=== PATIENT | male | born 1960 | race Caucasian/White ===

== ENCOUNTER 2017-08-22 14:57 | Emergency (ER) | payer SELFPAY ==
[2017-08-22 15:55] LABS: Urine Bacteria <20 /HPF (NONE SEEN); Urine Culture Reflex Order REFLEXED; Urine RBC >50 /HPF (NONE SEEN)
[2017-08-22] MEDS ORDERED: NA CHLORIDE 0.9% 1,000 ML ONE (16:01)
[2017-08-22 16:39] LABS: Potassium 3.7 mEq/L (3.6-5.0)
[2017-08-22 16:55] LABS: Urine Blood 3+ (NEG); Urine Glucose NEGATIVE (NEG); Urine Protein 1+ (NEG); Urine Specific Gravity >1.030 (1.005-1.030)
--- NOTE | 2017-08-22 17:03 | RAD REPORT ---
EXAM DESCRIPTION: CT - Stone Protocol - 08/22/2017 4:54 pm CLINICAL HISTORY: Hematuria COMPARISON: None. TECHNIQUE: Axial 5 mm thick images were obtained without oral or IV contrast. The [id number] span s the entirety of the system partially obscuring uppermost abdomen and lung bases. All CT scans are performed using dose optimization technique as appropriate and may include automated exposure control or mA/KV adjustment according to patient size. FINDINGS: No hydronephrosis is present and no obstructing ureteral calculi. No suspicious renal mass es. Isodense masses and pyelonephritis are not excluded on a stone protocol CT scan. Prostate gland i s quite enlarged. There is a lobulated superior margin at the interface between the prostate and blad willard base. On this examination it cannot be determined if this is an invasive bladder process or a neisha dder origin mass. This may need direct visualization. No stranding or edema in the fat adjacent to th e prostate. Imaged portions of the liver, spleen and pancreas show no suspicious findings on non-contrast imaging . No gallbladder or biliary tree abnormality identified. No significant adrenal finding. No suspicious bowel findings. No mass or bulky lymphadenopathy. Fat filled right inguinal hernia is present. No free air, free flui d or inflammatory stranding. No significant bony abnormality. IMPRESSION: Enlarged lobulated prostate gland. There is a mass at the bladder base that could be neisha dder in origin, part of prostatic hypertrophy or an invasive prostatic mass. This will likely need di rect visualization. No hydronephrosis or obstructing calculi. No acute finding. Isodense masses and pyelonephritis are not excluded on stone protocol technique.
--- NOTE | 2017-08-22 17:11 | EDPHYS ---
Physician Documentation [facility] Name: Roman Gooden Age: 57 yrs Sex: Male : 1960 Arrival Date: 08/22/2017 Time: 15:02 Bed 10 Private MD: ED Physician Clive Santa HPI: 08/22 15:53 This 57 yrs old Male presents to ER via Ambulatory with complaints of Finger kb Injury, Urinary Problem. 15:53 The patient or guardian reports pain, swelling, possible FB. The complaints affect the kb palmar aspect of middle phalanx of left middle finger. Context: The problem was sustained at home. Onset: The symptoms/episode began/occurred yesterday. Modifying factors: The symptoms are alleviated by nothing, the symptoms are aggravated by nothing. Associated signs and symptoms: The patient has no apparent associated signs or symptoms. Severity of symptoms: At their worst the symptoms were mild, moderate, in the emergency department the symptoms are unchanged. The patient has not experienced similar symptoms in the past. The patient has not recently seen a physician. Pt reports he got a piece of wood stuck in his finger yesterday. Tried to get it out today but couldn't so he came in. Reports blood in urine when he used the restroom in the lobby. . Historical: - Allergies: 15:20 No Known Allergies; ae1 - Home Meds: 15:20 Tylenol oral oral [Active]; ae1 - PMHx: 15:20 UTI; Hypertension; TIA; ae1 - PSHx: 15:20 ankle surgery; eye surgery; Tonsillectomy; ae1 - Immunization history:: Last tetanus immunization: up to date Flu vaccine is not up to date. - Social history:: Smoking status: Patient/guardian denies using tobacco. ROS: 15:53 Constitutional: Negative for fever, chills, and weight loss, Cardiovascular: Negative kb for chest pain, palpitations, and edema, Respiratory: Negative for shortness of breath, cough, wheezing, and pleuritic chest pain, Abdomen/GI: Negative for abdominal pain, nausea, vomiting, diarrhea, and constipation, MS/Extremity: Negative for injury and deformity, Neuro: Negative for headache, weakness, numbness, tingling, and seizure. 15:53 : Positive for urinary symptoms, small amounts, hematuria, burning with urination. 15:53 Skin: Positive for of the palmar aspect of middle phalanx of left middle finger, inflammation, puncture wound. Exam: 15:53 Constitutional: This is a well developed, well nourished patient who is awake, alert, kb and in no acute distress. Head/Face: Normocephalic, atraumatic. Chest/axilla: Normal chest wall appearance and motion. Nontender with no deformity. No lesions are appreciated. Cardiovascular: Regular rate and rhythm with a normal S1 and S2. No gallops, murmurs, or rubs. Normal PMI, no JVD. No pulse deficits. Respiratory: Lungs have equal breath sounds bilaterally, clear to auscultation and percussion. No rales, rhonchi or wheezes noted. No increased work of breathing, no retractions or nasal flaring. Abdomen/GI: Soft, non-tender, with normal bowel sounds. No distension or tympany. No guarding or rebound. No evidence of tenderness throughout. Back: No spinal tenderness. No costovertebral tenderness. Full range of motion. MS/ Extremity: Pulses equal, no cyanosis. Neurovascular intact. Full, normal range of motion. Neuro: Awake and alert, GCS 15, oriented to person, place, time, and situation. Cranial nerves II-XII grossly intact. Motor strength 5/5 in all extremities. Sensory grossly intact. Cerebellar exam normal. Normal gait. 15:53 Skin: injury, puncture(s), that are superficial, of the palmar aspect of middle phalanx of left middle finger. Vital Signs: 15:12 BP 171 / 113; Pulse 80; Resp 19; Temp 97.8(TE); Pulse Ox 97% on R/A; Weight 97.52 kg ae1 (R); Height 5 ft. 10 in. (177.80 cm); Pain 3/10; 16:22 BP 164 / 97; Pulse 74; Resp 18; Pulse Ox 98% on R/A; ph 17:35 BP 159 / 88; Pulse 76; Resp 18; Temp 97.5; Pulse Ox 99% on R/A; ph 15:12 Body Mass Index 30.85 (97.52 kg, 177.80 cm) ae1 MDM: 15:23 Patient medically screened. kb 15:53 Data reviewed: vital signs, nurses notes. Data interpreted: Pulse oximetry: on room air kb is 97 %. Interpretation: normal. 17:08 Counseling: I had a detailed discussion with the patient and/or guardian regarding: the kb historical points, exam findings, and any diagnostic results supporting the discharge/admit diagnosis, lab results, radiology results, the need for outpatient follow up, a family practitioner, a urologist, to return to the emergency department if symptoms worsen or persist or if there are any questions or concerns that arise at home. ED course: Pt educated on CT findings and importance of urologist follow up. Verbal understanding received. . 08/22 15:26 Order name: Urine Microscopic Only; Complete Time: 16:00 kb 08/22 15:40 Order name: Hand Left 3 View XRAY kb 08/22 15:47 Order name: Urine Dipstick--Ancillary (enter results); Complete Time: 16:57 bd 08/22 15:57 Order name: Urine Culture EDWY 08/22 16:23 Order name: Basic Metabolic Panel; Complete Time: 16:51 EDMS 08/22 15:26 Order name: Urine Dipstick-Ancillary (obtain specimen); Complete Time: 16:24 kb 08/22 15:40 Order name: IV Start; Complete Time: 16:22 kb 08/22 15:40 Order name: CT Stone Protocol; Complete Time: 17:04 kb Administered Medications: 16:22 Drug: NS 0.9% 1000 ml Route: IV; Rate: 1000 ml; Site: right antecubital; ph 17:30 Follow up: Response: No adverse reaction; IV Status: Completed infusion ph 17:21 Drug: Tetanus-Diphtheria Toxoid Adult 0.5 ml {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 Exp: ph 12/08/2019. Lot #: [id number]. } Route: IM; Site: right deltoid; 17:35 Follow up: Response: No adverse reaction ph 17:22 Drug: KeFLEX 500 mg Route: PO; ph 17:35 Follow up: Response: No adverse reaction ph Disposition: 21:38 Co-signature as Attending Physician, Clive Santa MD. rn Disposition: 08/22/17 17:10 Discharged to Home. Impression: Puncture wound without foreign body of left hand, Hematuria, Enlarged prostate. - Condition is Stable. - Discharge Instructions: Hematuria, Adult, Puncture Wound, Ccdi-[id number]. - Prescriptions for Keflex 500 mg Oral Capsule - take 1 capsule by ORAL route every 8 hours for 7 days; 21 capsule. - Medication Reconciliation Form, Thank You Letter, Antibiotic Education, Prescription Opioid Use form. - Follow up: Emergency Department; When: As needed; Reason: Worsening of condition. Follow up: Private Physician; When: 2 - 3 days; Reason: Recheck today's complaints, Continuance of care, Re-evaluation by your physician. Follow up: Nancy Sanchez MD; When: 1 - 2 days; Reason: Recheck today's complaints. Signatures: Dispatcher [employer] EDSamra Branch, ELECTRONICS INSPECTOR-C ELECTRONICS INSPECTOR-Ckb Clive Santa MD MD rn Dora Mon RN RN Hector Mendenhall RN RN ae1
--- NOTE | 2017-08-22 17:11 | ER ---
Nurse's Notes [facility] Name: Roman Gooden Age: 57 yrs Sex: Male : 1960 Arrival Date: 08/22/2017 Time: 15:02 Bed 10 Private MD: Diagnosis: Puncture wound without foreign body of left hand;Hematuria;Enlarged prostate Presentation: 08/22 15:15 Presenting complaint: Patient states: patient states a piece of wood pierced his left ae1 middle finger. He also reports blood in his urine that started right now. Transition of care: patient was not received from another setting of care. Onset of symptoms was August 22, 2017. 15:15 Method Of Arrival: Ambulatory ae1 15:15 Acuity: DAVID 3 ae1 16:21 Initial Sepsis Screen: Does the patient meet any 2 criteria? No. Patient's initial ph sepsis screen is negative. Does the patient have a suspected source of infection? No. Patient's initial sepsis screen is negative. Care prior to arrival: None. Triage Assessment: 15:17 General: Appears in no apparent distress. comfortable, Behavior is calm, cooperative. ae1 Pain: Complains of pain in palmar aspect of distal phalanx of left middle finger, palmar aspect of middle phalanx of left middle finger and palmar aspect of proximal phalanx of left middle finger Pain currently is 3 out of 10 on a pain scale. Musculoskeletal: Swelling present in palmar aspect of distal phalanx of left middle finger, palmar aspect of middle phalanx of left middle finger and palmar aspect of proximal phalanx of left middle finger. Injury Description: Puncture. Historical: - Allergies: 15:20 No Known Allergies; ae1 - Home Meds: 15:20 Tylenol oral oral [Active]; ae1 - PMHx: 15:20 UTI; Hypertension; TIA; ae1 - PSHx: 15:20 ankle surgery; eye surgery; Tonsillectomy; ae1 - Immunization history:: Last tetanus immunization: up to date Flu vaccine is not up to date. - Social history:: Smoking status: Patient/guardian denies using tobacco. Screenin:21 Abuse screen: Denies threats or abuse. Denies injuries from another. Nutritional ph screening: No deficits noted. Tuberculosis screening: No symptoms or risk factors identified. Fall Risk None identified. Assessment: 16:17 General: Appears in no apparent distress. comfortable, Behavior is calm, cooperative, ph appropriate for age, Denies fever. Pain: Complains of pain in palmar aspect of middle phalanx of left middle finger and LLQ. Neuro: Level of Consciousness is awake, alert, obeys commands, Oriented to person, place, time, situation. Cardiovascular: Capillary refill < 3 seconds Patient's skin is warm and dry. Respiratory: Airway is patent Respiratory effort is even, unlabored, Respiratory pattern is regular, symmetrical. GI: Reports lower abdominal pain, Patient currently denies nausea, vomiting. : Reports blood in urine. Derm: Skin is healthy with good turgor, Skin is pink, warm \T\ dry. Musculoskeletal: Circulation, motion, and sensation intact. Range of motion: intact in all extremities. Injury Description: Foreign body is located palmar aspect of middle phalanx of left middle finger is a splinter. was sustained 12-24 hours ago. 17:35 Reassessment: Patient appears in no apparent distress at this time. Patient and/or ph family updated on plan of care and expected duration. Pain level reassessed. Patient is alert, oriented x 3, equal unlabored respirations, skin warm/dry/pink. Pt discharged home with SO. Vital Signs: 15:12 BP 171 / 113; Pulse 80; Resp 19; Temp 97.8(TE); Pulse Ox 97% on R/A; Weight 97.52 kg ae1 (R); Height 5 ft. 10 in. (177.80 cm); Pain 3/10; 16:22 BP 164 / 97; Pulse 74; Resp 18; Pulse Ox 98% on R/A; ph 17:35 BP 159 / 88; Pulse 76; Resp 18; Temp 97.5; Pulse Ox 99% on R/A; ph 15:12 Body Mass Index 30.85 (97.52 kg, 177.80 cm) ae1 ED Course: 15:02 Patient arrived in ED. mr 15:16 Triage completed. ae1 15:21 Arm band placed on right wrist. ae1 15:23 Sam[facility] Dougherty [facility]C [facility]. kb 15:23 Clive Santa MD is Attending Physician. kb 15:51 Dora Mon, JAMES is Primary Nurse. ph 16:21 Patient has correct armband on for positive identification. Call light in reach. Side ph rails up X 1. Pulse ox on. NIBP on. 16:21 No provider procedures requiring assistance completed. Inserted saline lock: 20 gauge ph in right antecubital area, using aseptic technique. 16:54 CT Stone Protocol In Process Unspecified. EDMS 16:57 X-ray completed. Patient tolerated procedure well. Patient moved back from radiology. kc2 16:58 Hand Left 3 View XRAY In Process Unspecified. EDMS 17:11 Nancy Sanchez MD is Referral Physician. kb 17:35 IV discontinued, intact, bleeding controlled, No redness/swelling at site. Pressure ph dressing applied. 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 Exp: ph 12/08/2019. Lot #: [id number]. } Route: IM; Site: right deltoid; 17:35 Follow up: Response: No adverse reaction ph 17:22 Drug: KeFLEX 500 mg Route: PO; ph 17:35 Follow up: Response: No adverse reaction ph Outcome: 17:10 Discharge ordered by MD. kb 17:39 Patient left the ED. ph 17:39 Discharged to home ambulatory, with significant other. ph 17:39 Condition: good 17:39 Discharge instructions given to patient, significant other, Instructed on discharge instructions, follow up and referral plans. medication usage, Demonstrated understanding of instructions, follow-up care, medications, Prescriptions given X 1. Signatures: Dispatcher [employer] EDMS Samra Dougherty, DIGITAL FORENSIC EXAMINER-C DIGITAL FORENSIC EXAMINER-Venita Hennessy mr Dora Mon, RN RN Gricelda Alcantara kc2 Hector Gant, JAMES RN ae1
[2017-08-22] MEDS ORDERED: TETANUS & DIPHTHERIA TOX,ADULT 0.5 ML VIAL ONE (17:15)
[2017-08-22] MEDS ORDERED: CEPHALEXIN 250 MG CAP ONE (17:15)
--- NOTE | 2017-08-22 17:51 | RAD REPORT ---
EXAM DESCRIPTION: RAD - Hand Left 3 View - 08/22/2017 5:01 pm CLINICAL HISTORY: Soft tissue wound third digit COMPARISON: None. FINDINGS: No fracture or acute bone finding identified. IP joint degenerative changes are present. L eft third digit soft tissues are edematous. No foreign body is identifiable. IMPRESSION: Soft tissue swelling without foreign body. No acute bone finding.
== END 2017-08-22 17:39 | disposition home or self-care (01) ==
LOC: ER 14:57
DX: N40.0 Benign prostatic hyperplasia without lower urinary tract symptoms (principal); S61.432A Puncture wound without foreign body of left hand, initial encounter; X58.XXXA Exposure to other specified factors, initial encounter; Y93.9 Activity, unspecified; Y92.009 Unspecified place in unspecified non-institutional (private) residence as the place of occurrence of the external cause; I10 Essential (primary) hypertension; Z23 Encounter for immunization
CPT/HCPCS: 36415; 74176; 76377; 80048; 81003; 81015; 87086; 87088; 90714; 96360; 99284; J7030

== ENCOUNTER 2018-01-09 15:09 | Inpatient (IN) | payer OTHER, SELFPAY ==
[2018-01-09] MEDS ORDERED: ASPIRIN 81 MG CHEWABLE TABLET ONE (16:20)
[2018-01-09] MEDS ORDERED: MORPHINE 4 MG/ML SYR ONE (16:21)
[2018-01-09] MEDS ORDERED: NA CHLORIDE 0.9% 1,000 ML ONE (16:21)
[2018-01-09] MEDS ORDERED: ONDANSETRON 4 MG/2 ML VIAL ONE (16:21)
[2018-01-09] MEDS ORDERED: FAMOTIDINE 20 MG/2 ML VIAL IV ONE (16:21)
--- NOTE | 2018-01-09 16:24 | RAD REPORT ---
EXAM DESCRIPTION: RAD - Chest Single View - 01/09/2018 4:18 pm CLINICAL HISTORY: CHEST PAIN Chest pain. COMPARISON: No comparisons FINDINGS: Portable technique limits examination quality. The lungs are grossly clear. The heart is normal in size. No displaced fractures. IMPRESSION: No acute intrathoracic process suspected.
[2018-01-09 16:41] LABS: Absolute Lymphocytes (CBC) 1.2 K/uL (0.7-4.9); Absolute Monocytes 0.5 K/uL (0.1-1.3); Absolute Neutrophil 3.1 K/uL (1.8-8.0); Basophils % 0.3 % (0-1.3); Eosinophils % 0.9 % (0-4.4); Hematocrit 44.8 % (39.6-49.0); Lymphocytes % 25.5 % (15.3-44.8); MCH 29.5 pg (27.0-35.0); MCV 87.3 fL (80-100); MPV 9.3 fL (7.6-11.3); Monocytes % 10.4 % (3.3-12.3); RBC Red Blood Cell Count 5.13 M/uL (4.33-5.43)
[2018-01-09 16:53] LABS: Protime INR 0.99
--- NOTE | 2018-01-09 17:18 | ER ---
Nurse's Notes [facility] Name: Roman Gooden Age: 57 yrs Sex: Male : 1960 Arrival Date: 01/09/2018 Time: 15:15 Bed 24 Private MD: None, None Diagnosis: Dyspnea;Other chest pain;Abdominal tenderness-lower Presentation: 01/09 15:29 Presenting complaint: Patient states: " I am feeling SOB and I feel like I'm having a ph migraine. I am also having chest pain that goes down my L side and my stomach is hurting." Reports intermittent L sided chest pain that radiates to L side and flank area, headache in entire head, (reports hx of headaches), and lower abdominal pain, denies N/V/D. Transition of care: patient was not received from another setting of care. Onset of symptoms was January 09, 2018. Risk Assessment: Do you want to hurt yourself or someone else? Patient reports no desire to harm self or others. Care prior to arrival: None. 15:29 Method Of Arrival: Ambulatory ph 15:29 Acuity: DAVID 3 ph 19:40 Initial Sepsis Screen: Does the patient meet any 2 criteria? No. Patient's initial rv sepsis screen is negative. Does the patient have a suspected source of infection? No. Patient's initial sepsis screen is negative. Triage Assessment: 19:39 General: Appears in no apparent distress. comfortable. General: Behavior is calm, rv cooperative. Respiratory: Onset: The symptoms/episode began/occurred suddenly, the patient has moderate shortness of breath. Respiratory: Airway is patent Breath sounds are clear bilaterally. Historical: - Allergies: 15:34 No Known Allergies; ph - Home Meds: 19:39 Tylenol Oral [Active]; rv - PMHx: 15:34 Hypertension; TIA; UTI; ph - PSHx: 15:34 ankle surgery; Tonsillectomy; eye surgery; ph - Immunization history:: Adult Immunizations unknown. - Social history:: Smoking status: Patient/guardian denies using tobacco. - Ebola Screening: : No symptoms or risks identified at this time. Screenin:07 Abuse screen: Denies threats or abuse. Denies injuries from another. Nutritional aj1 screening: No deficits noted. Tuberculosis screening: No symptoms or risk factors identified. 19:40 Fall Risk None identified. rv Assessment: 16:05 General: Appears in no apparent distress. uncomfortable, Behavior is. Pain: Complains aj1 of pain in forehead, right caodaism, left caodaism, left parietal area, right parietal area, anterior aspect of left upper chest, right lower quadrant and left lower quadrant Pain does not radiate. Pain currently is 8 out of 10 on a pain scale. Is continuous. Neuro: Level of Consciousness is awake, alert, obeys commands, Oriented to person, place, time, situation, Lens Polisher Hand are equal bilaterally Moves all extremities. Full function Speech is normal, Facial symmetry appears normal, Reports headache. Cardiovascular: Reports chest pain, shortness of breath, Heart tones S1 S2 present Patient's skin is warm and dry. Rhythm is sinus rhythm. Respiratory: Reports shortness of breath Airway is patent Respiratory effort is even, unlabored, Respiratory pattern is regular, symmetrical, Breath sounds are clear bilaterally. GI: Abdomen is non-distended, Bowel sounds present X 4 quads. Abd is soft X 4 quads Abdomen is tender to palpation in right lower quadrant and left lower quadrant. : No signs and/or symptoms were reported regarding the genitourinary system. EENT: No signs and/or symptoms were reported regarding the EENT system. Derm: No signs and/or symptoms reported regarding the dermatologic system. Skin is pink, warm \\T\\ dry. normal. Musculoskeletal: Circulation, motion, and sensation intact. 17:10 Reassessment: Patient appears in no apparent distress at this time. No changes from aj1 previously documented assessment. Patient and/or family updated on plan of care and expected duration. Pain level reassessed. Patient is alert, oriented x 3, equal unlabored respirations, skin warm/dry/pink. 18:30 Reassessment: Patient appears in no apparent distress at this time. Patient and/or aj1 family updated on plan of care and expected duration. Pain level reassessed. General: Appears uncomfortable, Behavior is calm, cooperative. Pain: Complains of pain in anterior aspect of left upper chest. Neuro: Level of Consciousness is awake, alert, obeys commands, Speech is normal, Facial symmetry appears normal. Cardiovascular: Patient's skin is warm and dry. Cardiovascular: Rhythm is sinus rhythm. Respiratory: Airway is patent Respiratory effort is even, unlabored, Respiratory pattern is regular, symmetrical. Derm: Skin is pink, warm \\T\\ dry. normal. Musculoskeletal: Circulation, motion, and sensation intact. Vital Signs: 15:33 BP 162 / 94; Pulse 78; Resp 20; Temp 98.4; Pulse Ox 97% on R/A; Weight 95.25 kg; Height ph 5 ft. 10 in. (177.80 cm); Pain 8/10; 16:05 BP 153 / 98; Pulse 71; Resp 18; Pulse Ox 98% on R/A; aj1 17:15 BP 161 / 98; Pulse 63; Resp 18; Pulse Ox 97% on R/A; aj1 19:01 BP 162 / 97; Pulse 79; Resp 18; Pulse Ox 99% ; aj1 15:33 Body Mass Index 30.13 (95.25 kg, 177.80 cm) ph ED Course: 15:15 Patient arrived in ED. mr 15:15 None, None is Private Physician. mr 15:32 Triage completed. ph 15:34 Arm band placed on. ph 15:49 Ashlie Hall, RN is Primary Nurse. aj1 15:49 Nabeel Nails MD is Attending Physician. ross 15:57 EKG done, by photographic technician. reviewed by Nabeel Nails MD. sm3 16:07 Patient has correct armband on for positive identification. substance abuse prevention coordinator on. Pulse aj1 ox on. NIBP on. 16:07 No provider procedures requiring assistance completed. aj1 16:09 Lights dimmed. Warm blanket given. Pillow given. jp3 16:15 Initial lab(s) drawn, by wi, sent to lab. Inserted saline lock: 20 gauge in right jp3 antecubital area, using aseptic technique. Blood collected. 16:16 X-ray completed. Portable x-ray completed in exam room. Patient tolerated procedure az well. 16:18 XRAY Chest (1 view) In Process Unspecified. EDMS 16:26 Lipase Sent. jp3 16:26 Basic Metabolic Panel Sent. jp3 16:26 CBC with Diff Sent. jp3 16:26 Ckmb Sent. jp3 16:26 CPK Sent. jp3 16:26 LFT's Sent. jp3 16:26 Magnesium Sent. jp3 16:26 NT PRO-BNP Sent. jp3 16:26 PT-INR Sent. jp3 16:26 Ptt, Activated Sent. jp3 16:26 Troponin (emerg Dept Use Only) Sent. jp3 16:54 Radiology exam delayed due to lab results not completed at this time. (BUN/Creatinine). 2 17:17 Bahman Jerry DO is Hospitalizing Provider. ross 18:15 Urine collected: clean catch specimen, clear, brittany colored, Amount Voided: 120mL. jp3 18:51 Urine Culture Sent. jp3 19:39 Patient admitted, IV remains in place. intact. rv Administered Medications: 16:27 Drug: morphine 2 mg Route: IVP; Site: right antecubital; aj1 17:42 Follow up: Response: No adverse reaction aj1 16:27 Drug: Zofran 4 mg Route: IVP; Site: right antecubital; aj1 17:43 Follow up: Response: No adverse reaction aj1 16:28 Drug: NS 0.9% 1000 ml Route: IV; Rate: 125 ml/hr; Site: right antecubital; aj1 19:41 Follow up: IV Status: Completed infusion rv 16:28 Drug: Pepcid 20 mg Route: IVP; Site: right antecubital; aj1 17:42 Follow up: Response: No adverse reaction aj1 16:28 Drug: Aspirin 162 mg Route: PO; aj1 17:42 Follow up: Response: No adverse reaction aj1 18:05 Drug: Cipro 400 mg Volume: 200 ml; Route: IVPB; Infused Over: 60 mins; Site: right aj1 antecubital; 19:02 Follow up: IV Status: Completed infusion; IV Intake: 200ml aj1 18:05 Drug: Flagyl 500 mg Volume: 100 ml; Route: IVPB; Rate: 200 ml/hr; Infused Over: 30 aj1 mins; Site: right antecubital; 19:02 Follow up: IV Status: Completed infusion; IV Intake: 100ml aj1 18:05 Drug: Lopressor (metoprolol TARTRATE) 50 mg Route: PO; aj1 19:01 Follow up: Response: No adverse reaction aj1 18:06 Drug: morphine 2 mg Route: IVP; Site: right antecubital; aj1 19:02 Follow up: Response: No adverse reaction aj1 19:33 Drug: Rocephin - (cefTRIAXone) 1 grams Route: IVPB; Infused Over: 30 mins; Site: right rv antecubital; 19:36 Follow up: IV Status: Completed infusion rv 19:37 Drug: Lovenox 1 mg/kg Route: Sub-Q; Site: abdomen; rv 19:37 Follow up: Response: No adverse reaction rv Intake: 19:02 IV: 100ml; Total: 100ml. aj1 19:02 IV: 200ml; Total: 300ml. aj1 Outcome: 17:18 Decision to Hospitalize by Provider. [facility] 19:38 Admitted to Tele accompanied by tech, via wheelchair, room 412, with chart, Report rv called to wilda bell rn 19:38 Condition: good 19:38 Instructed on the need for admit. 19:47 Patient left the ED. rv Signatures: Dispatcher [employer] EDMS Ashlie Hall RN RN Nabeel Mireles MD MD cha Rivera, Maria mr Hall, Patricia, RN RN Tiana Vega 2 Madhavi Castillo 3 Isaac Moran RN RN rv King Ochoa 3 Louise Waite
--- NOTE | 2018-01-09 17:18 | EDPHYS ---
Physician Documentation [facility] Name: Roman Gooden Age: 57 yrs Sex: Male : 1960 Arrival Date: 01/09/2018 Time: 15:15 Bed 24 Private MD: None, None ED Physician Nabeel Nails HPI: 01/09 16:49 This 57 yrs old Male presents to ER via Ambulatory with complaints of ross Shortness Of Breath, Abdominal Pain. 16:49 The patient has shortness of breath at rest, with light activity. Onset: The ross symptoms/episode began/occurred 2 day(s) ago. Duration: The symptoms are continuous, and are steadily getting worse. The patient's shortness of breath has no apparent modifying factors. Associated signs and symptoms: Pertinent positives: chest pain, non-productive cough, dizziness, nausea. Severity of symptoms: At their worst the symptoms were mild moderate in the emergency department the symptoms are unchanged. The patient has not experienced similar symptoms in the past. Historical: - Allergies: 15:34 No Known Allergies; ph - Home Meds: 19:39 Tylenol Oral [Active]; rv - PMHx: 15:34 Hypertension; TIA; UTI; ph - PSHx: 15:34 ankle surgery; Tonsillectomy; eye surgery; ph - Immunization history:: Adult Immunizations unknown. - Social history:: Smoking status: Patient/guardian denies using tobacco. - Ebola Screening: : No symptoms or risks identified at this time. ROS: 16:50 Constitutional: Negative for fever, chills, and weight loss, Eyes: Negative for injury, ross pain, redness, and discharge, ENT: Negative for injury, pain, and discharge, Neck: Negative for injury, pain, and swelling, Back: Negative for injury and pain, : Negative for injury, bleeding, discharge, and swelling, MS/Extremity: Negative for injury and deformity, Skin: Negative for injury, rash, and discoloration, Neuro: Negative for headache, weakness, numbness, tingling, and seizure, Psych: Negative for depression, anxiety, suicide ideation, homicidal ideation, and hallucinations, Allergy/Immunology: Negative for hives, rash, and allergies, Endocrine: Negative for neck swelling, polydipsia, polyuria, polyphagia, and marked weight changes, Hematologic/Lymphatic: Negative for swollen nodes, abnormal bleeding, and unusual bruising. 16:50 Cardiovascular: Positive for chest pain. 16:50 Respiratory: Positive for cough, shortness of breath. 16:50 Abdomen/GI: Positive for abdominal pain, of the right lower quadrant and left lower quadrant. Exam: 16:50 Constitutional: This is a well developed, well nourished patient who is awake, alert, ross and in no acute distress. Head/Face: Normocephalic, atraumatic. Eyes: Pupils equal round and reactive to light, extra-ocular motions intact. Lids and lashes normal. Conjunctiva and sclera are non-icteric and not injected. Cornea within normal limits. Periorbital areas with no swelling, redness, or edema. ENT: Nares patent. No nasal discharge, no septal abnormalities noted. Tympanic membranes are normal and external auditory canals are clear. Oropharynx with no redness, swelling, or masses, exudates, or evidence of obstruction, uvula midline. Mucous membranes moist. Neck: Trachea midline, no thyromegaly or masses palpated, and no cervical lymphadenopathy. Supple, full range of motion without nuchal rigidity, or vertebral point tenderness. No Meningismus. Chest/axilla: Normal chest wall appearance and motion. Nontender with no deformity. No lesions are appreciated. Cardiovascular: Regular rate and rhythm with a normal S1 and S2. No gallops, murmurs, or rubs. Normal PMI, no JVD. No pulse deficits. Respiratory: Lungs have equal breath sounds bilaterally, clear to auscultation and percussion. No rales, rhonchi or wheezes noted. No increased work of breathing, no retractions or nasal flaring. Back: No spinal tenderness. No costovertebral tenderness. Full range of motion. Male : Normal genitalia with no discharge or lesions. Skin: Warm, dry with normal turgor. Normal color with no rashes, no lesions, and no evidence of cellulitis. MS/ Extremity: Pulses equal, no cyanosis. Neurovascular intact. Full, normal range of motion. Neuro: Awake and alert, GCS 15, oriented to person, place, time, and situation. Cranial nerves II-XII grossly intact. Motor strength 5/5 in all extremities. Sensory grossly intact. Cerebellar exam normal. Normal gait. Psych: Awake, alert, with orientation to person, place and time. Behavior, mood, and affect are within normal limits. 16:50 Abdomen/GI: Inspection: abdomen appears normal, Bowel sounds: normal, Palpation: mild abdominal tenderness, moderate abdominal tenderness, in the right lower quadrant and left lower quadrant, Liver: no appreciated palpable abnormalities, Hernia: not appreciated. Vital Signs: 15:33 BP 162 / 94; Pulse 78; Resp 20; Temp 98.4; Pulse Ox 97% on R/A; Weight 95.25 kg; Height ph 5 ft. 10 in. (177.80 cm); Pain 8/10; 16:05 BP 153 / 98; Pulse 71; Resp 18; Pulse Ox 98% on R/A; aj1 17:15 BP 161 / 98; Pulse 63; Resp 18; Pulse Ox 97% on R/A; aj1 19:01 BP 162 / 97; Pulse 79; Resp 18; Pulse Ox 99% ; aj1 15:33 Body Mass Index 30.13 (95.25 kg, 177.80 cm) ph MDM: 15:49 Patient medically screened. [facility] 16:50 Data reviewed: vital signs, nurses notes, lab test result(s), EKG, radiologic studies, [facility] CT scan, plain films. 01/09 15:53 Order name: Basic Metabolic Panel; Complete Time: 17:57 [facility] 01/09 15:53 Order name: CBC with Diff; Complete Time: 17:11 [facility] 01/09 15:53 Order name: Ckmb; Complete Time: 17:57 [facility] 01/09 15:53 Order name: CPK; Complete Time: 17:57 [facility] 01/09 15:53 Order name: LFT's; Complete Time: 17:57 [facility] 01/09 15:53 Order name: Magnesium; Complete Time: 17:57 [facility] 01/09 15:53 Order name: NT PRO-BNP; Complete Time: 17:57 [facility] 01/09 15:53 Order name: PT-INR; Complete Time: 17:11 [facility] 01/09 15:53 Order name: Ptt, Activated; Complete Time: 17:11 [facility] 01/09 15:53 Order name: Troponin (emerg Dept Use Only); Complete Time: 17:57 [facility] 01/09 15:53 Order name: Lipase; Complete Time: 17:57 [facility] 01/09 18:24 Order name: Urine Culture [facility] 01/09 18:24 Order name: Procalcitonin [facility] 01/09 18:52 Order name: Urine Dipstick--Ancillary (enter results) 01/09 15:53 Order name: XRAY Chest (1 view); Complete Time: 17:11 [facility] 01/09 16:47 Order name: CT Head Brain wo Cont [facility] 01/09 16:47 Order name: CT Aorta for Dissection [facility] 01/09 18:05 Order name: CT; Complete Time: 18:06 EDMS 01/09 18:10 Order name: CT; Complete Time: 18:22 EDNM 01/09 19:00 Order name: Urine Dipstick-Ancillary [facility] 01/09 15:53 Order name: EKG; Complete Time: 15:56 [facility] 01/09 15:53 Order name: Cardiac monitoring; Complete Time: 16:03 [facility] 01/09 15:53 Order name: EKG - Nurse/Tech; Complete Time: 16:04 [facility] 01/09 15:53 Order name: IV Saline Lock; Complete Time: 16:27 [facility] 01/09 15:53 Order name: Labs collected and sent; Complete Time: 16:27 [facility] 01/09 15:53 Order name: O2 Per Protocol; Complete Time: 16:04 [facility] 01/09 15:53 Order name: O2 Sat Monitoring; Complete Time: 16:04 [facility] 01/09 15:53 Order name: Urine Dipstick-Ancillary (obtain specimen); Complete Time: 18:51 [facility] 01/09 17:23 Order name: CONS Physician Consult; Complete Time: 19:41 EDMS Administered Medications: 16:27 Drug: morphine 2 mg Route: IVP; Site: right antecubital; aj1 17:42 Follow up: Response: No adverse reaction aj1 16:27 Drug: Zofran 4 mg Route: IVP; Site: right antecubital; aj1 17:43 Follow up: Response: No adverse reaction aj1 16:28 Drug: NS 0.9% 1000 ml Route: IV; Rate: 125 ml/hr; Site: right antecubital; aj1 19:41 Follow up: IV Status: Completed infusion rv 16:28 Drug: Pepcid 20 mg Route: IVP; Site: right antecubital; aj1 17:42 Follow up: Response: No adverse reaction aj1 16:28 Drug: Aspirin 162 mg Route: PO; aj1 17:42 Follow up: Response: No adverse reaction aj1 18:05 Drug: Cipro 400 mg Volume: 200 ml; Route: IVPB; Infused Over: 60 mins; Site: right aj1 antecubital; 19:02 Follow up: IV Status: Completed infusion; IV Intake: 200ml aj1 18:05 Drug: Flagyl 500 mg Volume: 100 ml; Route: IVPB; Rate: 200 ml/hr; Infused Over: 30 aj1 mins; Site: right antecubital; 19:02 Follow up: IV Status: Completed infusion; IV Intake: 100ml aj1 18:05 Drug: Lopressor (metoprolol TARTRATE) 50 mg Route: PO; aj1 19:01 Follow up: Response: No adverse reaction aj1 18:06 Drug: morphine 2 mg Route: IVP; Site: right antecubital; aj1 19:02 Follow up: Response: No adverse reaction aj1 19:33 Drug: Rocephin - (cefTRIAXone) 1 grams Route: IVPB; Infused Over: 30 mins; Site: right rv antecubital; 19:36 Follow up: IV Status: Completed infusion rv 19:37 Drug: Lovenox 1 mg/kg Route: Sub-Q; Site: abdomen; rv 19:37 Follow up: Response: No adverse reaction rv Disposition: 01/09/18 17:18 Hospitalization ordered by Bahman Jerry for Observation. Preliminary diagnosis are Dyspnea, Other chest pain, Abdominal tenderness - lower. - Bed requested for Telemetry/MedSurg (observation). - Status is Observation. rv - Condition is Stable. - Problem is new. - Symptoms have improved. UTI on Admission? No Signatures: Dispatcher [employer] EDNM Ashlie Hall RN RN aj1 Nabeel Nails MD MD cha Hall, Patricia, RN RN Kay Oneal Ronaldo RN RN rv Corrections: (The following items were deleted from the chart) 18:38 17:18 Hospitalization Ordered by Bahman Jerry DO for Observation. Preliminary eb diagnosis is Dyspnea; Other chest pain; Abdominal tenderness - lower. Bed requested for Telemetry/MedSurg (observation). Status is Observation. Condition is Stable. Problem is new. Symptoms have improved. UTI on Admission? No. ross 19:47 18:38 01/09/2018 17:18 Hospitalization Ordered by Bahman Prezas DO for Observation. rv Preliminary diagnosis is Dyspnea; Other chest pain; Abdominal tenderness - lower. Bed requested for Telemetry/MedSurg (observation). Status is Observation. Condition is Stable. Problem is new. Symptoms have improved. UTI on Admission? No. eb
[2018-01-09 17:28] LABS: ALT/SGPT 22 U/L (12-78); AST/SGOT 13 U/L (15-37); Albumin 3.5 g/dL (3.4-5.0); Alkaline Phosphatase 89 U/L (45-117); BUN Blood Urea Nitrogen 10 mg/dL (7-18); Bicarbonate 28 mmol/L (21-32); Bilirubin Direct 0.2 mg/dL (0-0.2); Bilirubin Total 0.5 mg/dL (0.2-1.0); CKMB Creatine Kinase MB 1.3 ng/mL (0.3-3.6); Creatine Phosphokinase 72 U/L (39-308); Glucose Level 89 mg/dL (74-106); Lipase 175 U/L (73-393); Magnesium 2.6 mg/dL (1.8-2.4); NT PRO-BNP 136 pg/mL (<125); Potassium 4.2 mmol/L (3.5-5.1); Sodium Level 143 mmol/L (136-145); Troponin (Emerg Dept Use Only) < 0.02 ng/mL (0.0-0.045)
[2018-01-09] MEDS ORDERED: CIPROFLOXACIN 400mg IV 400 MG/200 ML BAG IV ONE (17:40)
[2018-01-09] MEDS ORDERED: METRONIDAZOLE 500mg IVPB 500 MG/100 ML BAG IV ONE (17:40)
[2018-01-09] MEDS ORDERED: ENOXAPARIN 100 MG/ML SYR SQ ONE (17:41)
[2018-01-09] MEDS ORDERED: METOPROLOL TAR 50 MG TAB ONE (17:41)
--- NOTE | 2018-01-09 18:03 | RAD REPORT ---
EXAM DESCRIPTION: CT - Head Brain Wo Cont - 01/09/2018 5:49 pm CLINICAL HISTORY: Migraine headache COMPARISON: None. TECHNIQUE: Axial 5 mm thick images of the head were obtained without IV contrast. All CT scans are performed using dose optimization technique as appropriate and may include automated exposure control or mA/KV adjustment according to patient size. FINDINGS: No intracranial hemorrhage, mass, edema or shift of mid-line structures. No acute infarcti on changes seen. No measurable atrophy or chronic ischemic change. Ventricles are normal. Relative de crease in attenuation along the floor of each middle cranial fossa is believed be volume averaging af fects. Posterior fossa has inherent volume averaging as well. Physiologic calcifications are present. Mastoid air cells are under developed. Is difficult to determine if there is abnormal air cell opacif ication or this is part of the developmental issue. No acute paranasal sinus finding. No acute bony findings. IMPRESSION: Negative non-contrast CT head examination for acute intracranial finding. Underdeveloped mastoid air cells partially opacified. The opacification may be part of the developmen karen variant rather than mastoiditis.
--- NOTE | 2018-01-09 18:10 | RAD REPORT ---
EXAM DESCRIPTION: CT - Angio Aorta For Dissection - 01/09/2018 5:50 pm CLINICAL HISTORY: Chest pain, shortness of breath COMPARISON: None. TECHNIQUE: Dynamically enhanced 3 mm thick images of the chest, abdomen, and upper pelvis were obtai maria dolores during administration of approximately 150mL Isovue 370 IV contrast. Sagittal and coronal reconst ruction images were generated using MIP and reviewed. Exam utilizes a protocol to evaluate entire cou rse of the aorta. All CT scans are performed using dose optimization technique as appropriate and may include automated exposure control or mA/KV adjustment according to patient size. FINDINGS: Ascending aorta is 4.4 cm in diameter. Aortic arch is 2.9 cm. Mid descending thoracic aort a is 2.7 cm in diameter. No aneurysm, dissection or acute aortic finding. There is mild tortuosity of the infrarenal abdominal aorta. Pulmonary arteries are normal as well. No cardiomegaly, pericardial thickening or pericardial effusio n. No focal mass or consolidation in the lung parenchyma. There is clustered subpleural bulla and bleb f ormation in the posteromedial right apex with a small bulla in the medial left apex. This is not felt to be acutely significant. Minimal atelectasis changes are present. No pleural thickening, pleural e ffusion or pneumothorax. No abnormal mediastinal or hilar mass or lymphadenopathy seen. No chest wall mass or abnormal axillar y lymphadenopathy. Small amount of fluid is present in the midthoracic esophagus. No esophageal mass or wall thickening. Celiac and superior mesenteric artery show no suspicious findings. Inferior mesenteric artery is renteria nt. No left renal artery abnormality. Atherosclerotic changes narrow the proximal right renal artery proximally 30%. A small accessory right renal artery is present as well. The iliac vasculature shows no suspicious finding. Solid abdominal viscera and bowel show no significant findings. Patient has a very large lobulated and heterogeneous prostate gland. Superior margin projects into the bladder bas e. Prostatic invasion or even a bladder base mass cannot be excluded. Enlarged and lobulated seminal vesicles are present. No free air, free fluid or inflammatory stranding. Fat extends into the right inguinal canal. No ac [place] component. IMPRESSION: Negative CT scan of the aorta for acute or significant finding. Ascending aorta is 4.4 c m. Remainder of the aorta is normal in diameter. Enlarged lobulated and heterogeneous prostate gland with mass at the base of the bladder that could b e prostatic invasion or possibly bladder mass. This will likely need follow-up with outpatient urolog y consultation. Clustered bulla and bleb formation in the posterior right apex. No acute lung parenchymal process see n. Full findings detailed in the body of the report.
[2018-01-09] MEDS ORDERED: ONDANSETRON 4 MG/2 ML VIAL IV PRN (18:26)
[2018-01-09] MEDS ORDERED: NITROGLYCERIN 0.4 MG/TAB SL PRN (18:26)
[2018-01-09 18:59] LABS: Urine Blood NEGATIVE (NEG); Urine Glucose NEGATIVE (NEG); Urine Protein NEGATIVE (NEG); Urine Specific Gravity 1.015 (1.005-1.030)
[2018-01-09] MEDS: METOPROLOL TAR 25 MG TAB PO SCH (19:00)
[2018-01-09] MEDS ORDERED: CEFTRIAXONE/SWI 1gm 1 GM/10 ML SYR ONE (19:32)
--- NOTE | 2018-01-09 20:40 | P.HP ---
Certification for Inpatient Patient admitted to: Observation With expected LOS: <2 Midnights Practitioner: I am a practitioner with admitting privileges, knowledge of patient current condition, hospital course, and medical plan of care. Services: Services provided to patient in accordance with Admission requirements found in Title 42 Section 412.3 of the Code of Federal Regulations Patient History Date of Service: 01/09/18 Reason for admission: Chest pain, abdominal pain History of Present Illness: Mr Gooden is a 57-year-old male with history of hypertension, TIA, urinary retention episodes about 1 year ago requiring [place] catheter placement, however since the patient had no insurance, he did not have follow-up with urologist. Today he presents to ER complaining of chest pain localized on the left side of the chest, pressure-like, 7/10 of intensity, radiated to left shoulder, left flank and left lower quadrant. He denied any nausea, vomiting, or diarrhea. He denied also shortness of breath, or diaphoresis associated with the chest pain. Workup in ER revealed normal troponin I, EKG is pending, CT dissection shows no aortic dissection, but was remarkable for an enlarged and lobulated prostate, without bladder mass. The patient states that since 1 year ago, he has had hard time urinating. He is using straight cath 3 times a day. No history of fever or chills. He denied any weight loss. Allergies No Known Allergies Allergy (Unverified 08/22/17 18:05) Home medications list reviewed: Yes - Past Medical/Surgical History -: Hypertension -: TIA -: UTI -: Urinary retention -: Ankle -: Tonsillectomy -: Eye surgery - Family History Family History: Reviewed- Non-Contributory - Social History Smoking Status: Never smoker Alcohol use: No CD- Drugs: No Place of Residence: Home Review of Systems 10-point ROS is otherwise unremarkable Physical Examination - Vital Signs Temperature: 97.5 F Blood Pressure: 183/112 Pulse: 58 Respirations: 18 Pulse Ox (%): 99 - Physical Exam General: Alert, In no apparent distress HEENT: Atraumatic, PERRLA, Mucous membr. moist/pink, EOMI, Sclerae nonicteric Neck: Supple, 2+ carotid pulse no bruit, No LAD, Without JVD or thyroid abnormality Respiratory: Clear to auscultation bilaterally, Normal air movement Cardiovascular: Regular rate/rhythm, Normal S1 S2 Gastrointestinal: Normal bowel sounds, Tenderness (Tender to palpation on the left lower quadrant.) Musculoskeletal: No tenderness Integumentary: No rashes Neurological: Normal gait, Normal speech, Normal strength at 5/5 x4 extr, Normal tone, Normal affect Lymphatics: No axilla or inguinal lymphadenopathy - Studies Laboratory Data (last 24 hrs) 01/09/18 16:15: PT 11.7, INR 0.99, APTT 30.6 01/09/18 16:15: WBC 4.9, Hgb 15.1, Hct 44.8, Plt Count 228 01/09/18 16:15: Sodium 143, Potassium 4.2, BUN 10, Creatinine 0.80, Glucose 89, Magnesium 2.6 H, Total Bilirubin 0.5, AST 13 L, ALT 22, Alkaline Phosphatase 89 , Lipase 175 Assessment and Plan - Problems (Diagnosis) (1) Chest pain Current Visit: Yes Status: Acute Qualifiers: Chest pain type: unspecified Qualified Code(s): R07.9 - Chest pain, unspecified (2) Enlarged prostate Current Visit: Yes Status: Acute (3) Hypertension Current Visit: Yes Status: Acute Qualifiers: Hypertension type: essential hypertension Qualified Code(s): I10 - Essential (primary) hypertension (4) Abdominal pain Current Visit: Yes Status: Acute Qualifiers: Abdominal location: left lower quadrant Qualified Code(s): R10.32 - Left lower quadrant pain - Plan The patient will be admitted to the hospital due to chest pain and abdominal pain. Will do serial EKG and cardiac enzymes monitored, consult loss prevention specialist. Also CT scan revealed enlarged and lobulated prostate leading with obstructive uropathy, will consult urologist for evaluation recommendation. - Advance Directives Does patient have a Living Will: No Does patient have a Durable POA for Healthcare: No - Code Status/Comfort Care Code Status Assessed: Yes Code Status: Full Code
[2018-01-09] MEDS: ENOXAPARIN 40 MG/0.4 ML SQ SCH (21:00)
[2018-01-09] MEDS: TAMSULOSIN 0.4 MG SR CAP PO SCH (21:33)
[2018-01-09] MEDS: TRAMADOL HCL 50 MG TAB PO PRN (21:33)
[2018-01-09] MEDS: ATORVASTATIN 40 MG TAB PO SCH (21:34)
[2018-01-09] MEDS: NA CHLORIDE 0.9% 1,000 ML IV SCH (21:35)
[2018-01-09] MEDS: ACETAMINOPHEN 500 MG TAB PO PRN (23:38)
[2018-01-10 00:36] LABS: CKMB Creatine Kinase MB < 1.0 ng/mL (0.3-3.6); Creatine Phosphokinase 62 U/L (39-308); Troponin I < 0.02 ng/mL (0.0-0.045)
--- NOTE | 2018-01-10 04:17 | EKG ---
Test Date: 2018-01-09 Test Time: 15:44:47 Light Bulb Assembler: MIKY MEASUREMENT RESULTS: Intervals: Rate: 75 OK: 196 QRSD: 80 QT: 374 QTc: 417 [place]: P: 41 OK: 196 QRS: 21 T: 29 INTERPRETIVE STATEMENTS: Normal sinus rhythm Nonspecific T wave abnormality Abnormal ECG No previous ECG available for comparison Electronically Signed On 01-10-18 04:16:38 CDT by Musa Wiggins
[2018-01-10] MEDS: METOPROLOL TAR 25 MG TAB PO SCH ×3 (04:54→18:32)
[2018-01-10] MEDS: NA CHLORIDE 0.9% 1,000 ML IV SCH ×2 (05:26→16:19)
[2018-01-10 06:13] LABS: Absolute Lymphocytes (CBC) 1.8 K/uL (0.7-4.9); Absolute Monocytes 0.6 K/uL (0.1-1.3); Basophils % 0.7 % (0-1.3); Eosinophils % 3.4 % (0-4.4); Hematocrit 39.9 % (39.6-49.0); Lymphocytes % 39.1 % (15.3-44.8); MCH 29.8 pg (27.0-35.0); MCV 86.8 fL (80-100); MPV 9.4 fL (7.6-11.3); Monocytes % 13.1 % (3.3-12.3)
[2018-01-10 06:16] LABS: CKMB Creatine Kinase MB < 1.0 ng/mL (0.3-3.6); Creatine Phosphokinase 56 U/L (39-308); Troponin I < 0.02 ng/mL (0.0-0.045)
[2018-01-10 06:21] LABS: BUN Blood Urea Nitrogen 11 mg/dL (7-18); Bicarbonate 28 mmol/L (21-32); Glucose Level 85 mg/dL (74-106); HDL Cholesterol 35 mg/dL (40-60); LDL Cholesterol, Calculated 58 (<130); Magnesium 2.4 mg/dL (1.8-2.4); Potassium 4.1 mmol/L (3.5-5.1); Sodium Level 143 mmol/L (136-145)
[2018-01-10] MEDS ORDERED: HYDRALAZINE HCL 20 MG/ML VIAL IV PRN (07:04)
[2018-01-10] MEDS ORDERED: REGADENOSON 0.4 MG/5 ML SYR IV ONE (07:59)
[2018-01-10] MEDS ORDERED: LISINOPRIL 10 MG TAB PO SCH (09:00)
[2018-01-10] MEDS: ASPIRIN EC 81 MG TAB PO SCH (11:27)
--- NOTE | 2018-01-10 12:41 | RAD REPORT ---
EXAM DESCRIPTION: NM - Rest Stress Cardiac Imaging - 01/10/2018 12:28 pm CLINICAL HISTORY: CP Chest pain. COMPARISON: No comparisons TECHNIQUE: The patient was administered approximately 10mCi of Tc 99m Sestamibi prior to resting SPE CT imaging of the heart. The patient was then administered approximately 30 mCi of Tc 99m Sestamibi f ollowing exercise or pharmacologic stress. Multiplanar SPECT images were reviewed. FINDINGS: Mild focal area of diminished radiopharmaceutical is seen with stress at the LV apex. This is compatible with a small area of mild stress-induced ischemia. No fixed defect is seen to suggest hibernating myocardium or scarred myocardium. The end diastolic volume is 161 ml, the end systolic volume is 90 ml, and the ejection fraction is 39 %. IMPRESSION: A small area of mild stress-induced ischemia is suspected LV apex.
[2018-01-10] MEDS: ENOXAPARIN 40 MG/0.4 ML SQ SCH (14:02)
--- NOTE | 2018-01-10 14:10 | P.PN ---
Subjective Date of Service: 01/10/18 Primary Care Provider: None Chief Complaint: Chest pain, abdominal pain Subjective: Doing well (Patient doing better. Less chest pain noted.) Physical Examination - Vital Signs Temperature: 98.3 F Blood Pressure: 182/105 Pulse: 60 Respirations: 20 Pulse Ox (%): 99 - Physical Exam General: Alert, In no apparent distress, Oriented x3, Cooperative HEENT: Atraumatic Neck: Supple Respiratory: Clear to auscultation bilaterally, Normal air movement Cardiovascular: Normal pulses, Regular rate/rhythm Gastrointestinal: Normal bowel sounds, Soft and benign, Non-distended, No tenderness, No masses, No rebound, No guarding Musculoskeletal: No erythema, No tenderness, No warmth Integumentary: No tenderness/swelling, No erythema, No warmth, No cyanosis Neurological: Normal speech, Normal strength at 5/5 x4 extr, Normal tone, Normal affect - Studies Laboratory Data (last 24 hrs) 01/09/18 16:15: PT 11.7, INR 0.99, APTT 30.6 01/09/18 16:15: WBC 4.9, Hgb 15.1, Hct 44.8, Plt Count 228 01/09/18 16:15: Sodium 143, Potassium 4.2, BUN 10, Creatinine 0.80, Glucose 89, Magnesium 2.6 H, Total Bilirubin 0.5, AST 13 L, ALT 22, Alkaline Phosphatase 89 , Lipase 175 Medications List Reviewed: Yes Assessment & Plan Discharge Plan: Home Plan to discharge in: 24 Hours (to 48 hours) Physician Review Additional Text: Impression: Chest pain Abdominal pain Abnormal stress test Hypertension History urinary retention BPH Plan: Patient has abnormal stress test. Patient will need cardiac intervention-heart catheterization. Will discuss with cardiology. Blood pressure is still elevated. Adjustments in medication made. Will continue to monitor and adjust appropriately. Will continue with stand medication. Patient placed on Flomax for BPH. PSA elevated. Patient with history of urinary retention. Await recommendations from Urology. Time Spent Managing Pts Care (In Minutes): 55
[2018-01-10] MEDS: HYDROCODONE/APAP 7.5/325 MG TAB PO PRN ×2 (14:28→20:30)
[2018-01-10] MEDS: TRAMADOL HCL 50 MG TAB PO PRN (16:18)
--- NOTE | 2018-01-10 17:52 | ECHO ---
HEIGHT: 5 ft 10 in WEIGHT: 215 lb 0 oz DATE OF STUDY: 01/10/[address]: Bahman Jerry DO 2-DIMENSIONAL: YES M.MODE: YES DOPPLER: YES COLOR FLOW: YES TDS: PORTABLE: DEFINITY: BUBBLE STUDY: DIAGNOSIS: HYPERTENSION, AND CHEST PAIN. CARDIAC HISTORY: CATHERIZATION: NO SURGERY: NO PROSTHETIC VALVE: NO PACEMAKER: NO MEASUREMENTS (cm) DIASTOLIC (NORMALS) SYSTOLIC (NORMALS) IVSd 1.2 (0.6-1.2) LA Diam 4.1 (1.9-4.0) LVEF 51% LVIDd 4.9 (3.5-5.7) LVIDs 3.6 (2.0-3.5) %FS 26% LVPWd 1.2 (0.6-1.2) Ao Diam 3.2 (2.0-3.7) 2 DIMENSIONAL ASSESSMENT: RIGHT ATRIUM: NORMAL LEFT ATRIUM: DILATED RIGHT VENTRICLE: NORMAL LEFT VENTRICLE: NORMAL TRICUSPID VALVE: NORMAL MITRAL VALVE: NORMAL PULMONIC VALVE: NORMAL AORTIC VALVE: NORMAL PERICARDIAL EFFUSION: NONE AORTIC ROOT: NORMAL LEFT VENTRICULAR WALL MOTION: NORMAL DOPPLER/COLOR FLOW: MILD TRICUSPID REGURGITATION. COMMENTS: MILD TRICUSPID REGURGITATION. NORMAL RIGHT VENTRICULAR SYSTOLIC PRESSURE. NORMAL LEFT VENTRIUCLAR EJECTION FRACTION AND SIZE. LEFT ATRIUM ENLARGEMENT. TECHNOLOGIST: BLAKE CAMPOVERDE
--- NOTE | 2018-01-10 17:54 | EKG ---
Test Date: 2018-01-09 Test Time: 20:39:32 Foreign Car Mechanic: EVENS MEASUREMENT RESULTS: Intervals: Rate: 52 IN: 220 QRSD: 84 QT: 448 QTc: 416 [place]: P: 38 IN: 220 QRS: 32 T: 138 INTERPRETIVE STATEMENTS: Sinus bradycardia with 1st degree AV block Nonspecific T wave abnormality Abnormal ECG Compared to ECG 01/09/2018 15:44:47 First degree AV block now present Sinus rhythm no longer present T-wave abnormality still present Electronically Signed On 01-10-18 17:51:05 CDT by Musa Wiggins
[2018-01-10] MEDS: TAMSULOSIN 0.4 MG SR CAP PO SCH (20:27)
[2018-01-10] MEDS: LISINOPRIL 20 MG TAB PO SCH (20:27)
[2018-01-10] MEDS: ATORVASTATIN 40 MG TAB PO SCH (20:27)
--- NOTE | 2018-01-10 22:08 | CON ---
History Of Present Illness: This is a pleasant 57-year-old gentleman with history of hypertension, TIA, urinary retention, one episode 1 year ago, requiring Israel catheter. I have never met the patient before. Apparently, did not follow up with a urologist due to insurance reasons until recently gotten insurance and now he presents ___ with chest pain, radiation. He had an abnormal stress test and is going for possible stent placement tomorrow. He had some difficulty voiding, weak stream, frequency, decrease in force of stream , some hesitancy. He was just started on Flomax, which is helping him a lot more, but he feels incomplete emptying. He had a CT scan showed a very enlarged prostate, lobulated prostate. His PSA value of 7.3 is most likely from BPH. We will need to watch that and possibly get a 4K PSA on him to rule out prostate cancer. Allergies: NO KNOWN DRUG ALLERGIES. Past Medical History/surgical History: Hypertension, TIA, UTI, urinary retention, ankle surgery, tonsillectomy, eye surgery. Family History: Noncontributory. Social History: Never smoked. No alcohol use. No drug abuse. Review of Systems: A 10-point review of systems unremarkable. Physical Examination: Vital Signs: Afebrile, stable. General: He is alert, in no acute distress. HEENT: Atraumatic, normocephalic. Neck: Supple. Heart: S1, S2. Cardiovascular: Normal rhythm. Gastrointestinal: Soft. Musculoskeletal: No tenderness. : Both testicles descended. Phallus normal. Prostate is enlarged 40 to 50 g , benign feeling prostate. Laboratory Data: Coags normal. White count normal at 4.9, H and H 15 and 44, platelet 228. Chemistry: Sodium 143, potassium 4.2, BUN 10, creatinine 0.8, glucose 89, magnesium 2.6. LFTs normal. Assessment: The patient has had history of chest pain, enlarged prostate, hypertension, abdominal pain. Patient with an abnormal stress test and going for stent tomorrow. We can work on the elevated PSA, BPH symptoms later. We should go ahead and get a bladder scan done just to see what his postvoid residual is. YASMIN/RENEE Voice ID: [id number] Report ID: [id number] ÓSCAR
[2018-01-11 04:50] LABS: Absolute Lymphocytes (CBC) 1.7 K/uL (0.7-4.9); Absolute Monocytes 0.5 K/uL (0.1-1.3); Basophils % 0.7 % (0-1.3); Eosinophils % 3.5 % (0-4.4); Hematocrit 39.9 % (39.6-49.0); Lymphocytes % 38.7 % (15.3-44.8); MCH 29.7 pg (27.0-35.0); MCV 87.9 fL (80-100); MPV 9.4 fL (7.6-11.3); Monocytes % 10.7 % (3.3-12.3); RBC Red Blood Cell Count 4.53 M/uL (4.33-5.43)
[2018-01-11 05:14] LABS: BUN Blood Urea Nitrogen 10 mg/dL (7-18); Bicarbonate 26 mmol/L (21-32); Glucose Level 86 mg/dL (74-106); Magnesium 2.3 mg/dL (1.8-2.4); Potassium 3.9 mmol/L (3.5-5.1); Sodium Level 144 mmol/L (136-145)
[2018-01-11] MEDS: METOPROLOL TAR 25 MG TAB PO SCH ×2 (05:17→17:31)
[2018-01-11] MEDS: NA CHLORIDE 0.9% 1,000 ML IV SCH ×4 (05:18→21:39)
[2018-01-11] MEDS: ASPIRIN EC 81 MG TAB PO SCH (05:18)
[2018-01-11] MEDS: HYDROCODONE/APAP 7.5/325 MG TAB PO PRN ×2 (05:19→17:31)
--- NOTE | 2018-01-11 05:56 | CON ---
Date of Consultation: 01/10/2018 Reason For Consultation: Chest pain. He was admitted to Dr. Jerry. History Of Present Illness: Mr. Gooden is a 57-year-old who has a history of hypertension, has had a h istory of TIA in the past, came in with left-sided chest pain, midepigastric, radiating to the back, sharp, with some nausea, diaphoresis, shortness of breath. No vomiting. No PND, orthopnea, pedal ed tete, palpitations, or syncope. CT of the abdomen showed what sounds like a possible bladder mass. C T of the head was negative. Chest x-ray was negative. EKG was negative. All laboratory evaluations were negative. He was slightly hypertensive at 160/90. Allergies: NONE. Review of Systems: Negative. Social History: Negative for tobacco. Family History: Positive for heart disease. Medications: At home are none. Physical Examination: Vital Signs: As stated earlier blood pressure 160/90, sinus rhythm, afebrile. HEENT: Negative. Neck: Supple with no bruit. Chest: Clear. Cardiac: Revealed regular rhythm and rate with S4 gallops. Abdomen: Benign. Extremities: Reveal no clubbing, cyanosis, or edema. Diagnostic Data: As stated earlier. Impression And Plan: Substernal chest pain, mid-epigastric, with multiple features, may be suggestiv e of coronary artery disease. He has diaphoresis. He has nausea. He has shortness of breath. Has had transient ischemic attack before. Has a history of hypertension, family history of heart disease . I would like him to get a 2D echocardiogram and a Lexiscan before we make any further decisions. There is a urology consult pending regarding his possible bladder outlet obstruction. I will discuss the case further with Dr. Jerry. VIRGIL/RENEE Voice ID: [id number] Report ID: [id number]
--- NOTE | 2018-01-11 08:51 | P.PN ---
Subjective Date of Service: 01/11/18 Primary Care Provider: None Chief Complaint: Chest pain, abdominal pain Subjective: Doing well Physical Examination - Vital Signs Temperature: 97.5 F Blood Pressure: 151/90 Pulse: 55 Respirations: 18 Pulse Ox (%): 98 - Physical Exam General: Alert, In no apparent distress, Oriented x3, Cooperative HEENT: Atraumatic Neck: Supple Respiratory: Clear to auscultation bilaterally, Normal air movement Cardiovascular: Normal pulses, Regular rate/rhythm Gastrointestinal: Normal bowel sounds, Soft and benign, Non-distended, No tenderness, No masses, No rebound, No guarding Musculoskeletal: No erythema, No tenderness, No warmth Integumentary: No tenderness/swelling, No erythema, No warmth, No cyanosis Neurological: Normal speech, Normal strength at 5/5 x4 extr, Normal tone, Normal affect - Studies Medications List Reviewed: Yes Assessment & Plan Discharge Plan: Home Plan to discharge in: 24 Hours Physician Review Additional Text: Impression: Chest pain, resolved Abdominal pain, resolved Abnormal stress test awaiting heart catheterization Hypertension History urinary retention BPH Plan: Patient had abnormal stress test. Case discussed with cardiology. Patient to have heart catheterization today. Await findings and intervention. Will continue to adjust blood pressure medication for better control. Patient on medication for BPH. Will discuss with urology at about his care and follow up. Otherwise patient stable this time. Possible discharge today or tomorrow pending heart catheterization results. Time Spent Managing Pts Care (In Minutes): 55
[2018-01-11] MEDS: LISINOPRIL 20 MG TAB PO SCH ×2 (08:58→21:39)
[2018-01-11] MEDS: ENOXAPARIN 40 MG/0.4 ML SQ SCH (09:00)
--- NOTE | 2018-01-11 09:31 | TREADPHA ---
DX: CHEST PAIN Date of Study: 01/10/18 Ht: 5 10 Wt: 215 lb 0 oz Consulting Physician: JACK MEDICATIONS: TYLENOL, LIPITOR, LOVENOX, APRESOLINE, ULTAM, PRINIVIL, LOPRESSOR, NITROSTAT, ZOFRAN, FLOMAX. HISTORY: 57 YEAR OLD MALE WITH COMPLAINTS 6/10 CHEST PAIN. HISTORY HYPERTENSION, TRANSIENT ISCHEMIC. PHYSICIAL EXAMINATION: RESTING B.P.: 181/113 RESTING H.R.: 61 RESTING EKG: NORMAL. PROTOCOL: LEXISCAN EXERCISE TIME: 3:30 B.P. AT PEAK STRESS: 169/101 IMPRESSION: LEXISCAN INJECTED, CARDIOLITE INJECTED PER PROTOCOL. SEE NUCLEAR MEDICINE REPORT. CHEST PAIN REMAINS 10/15. NO VENTRICULAR TACHYCARDA. NO SUPRA VENTRICULAR TACHYCARDIA.
[2018-01-11] MEDS ORDERED: NA CHLORIDE 0.9% 0 ML ONE ×2 (13:25→13:53)
[2018-01-11] MEDS ORDERED: MIDAZOLAM HCL 2 MG/2 ML INJ ONE (13:52)
[2018-01-11] MEDS ORDERED: FENTANYL CITR 100 MCG/2 ML ONE (13:53)
[2018-01-11] MEDS ORDERED: ATROPINE SULF 1 MG/10 ML SYR IV ONE (13:53)
[2018-01-11] MEDS ORDERED: ACETAMINOPHEN 325 MG TABLET PO PRN (17:07)
[2018-01-11] MEDS: AMLODIPINE 10 MG TAB PO SCH (17:32)
--- NOTE | 2018-01-11 17:41 | PN ---
Subjective: The patient feeling well, getting ready for his cardiac cath today. Objective: His PVR was only over 100 cc. PSA 7.3. He is on Tamsulosin. He will get his cardiac cath today. Continue to follow patient. Continue tams ulosin. He can take up to two a day if necessary. YASMIN/RENEE Voice ID: [id number] Report ID: [id number]
[2018-01-11] MEDS ORDERED: NA CHLORIDE 0.9% 1,000 ML IV SCH (18:00)
--- NOTE | 2018-01-11 21:32 | OP ---
Date of Procedure: 01/10/2018 Surgeon: Musa Wiggins MD Admitted to Dr. Jerry on 01/09/2018 for chest pain, had atypical chest pain, positive stress test on 01/10/2018, brought into the catheterization lab as an inpatient, prepped and draped in the routine sterile fashion, given 2 mg of Versed for IV sedation. The procedure was left heart catheterization, selective coronary artery angiogram. The patient had normal coronaries on the left. He had about 3 0% distal RCA stenosis. A 6-Khmer sheath was used in the right common femoral artery. Angio-Seal w as used to close the case. Six-Khmer catheters were used for the diagnostic catheterization. There were no complications. Blood Loss: 5 cc. Postoperative Diagnosis: Minimal CAD. Plan: Plan for medical therapy. Operators: 1.Musa Wiggins M.D. 2.Vladimir Griffin. He will be going home today. I will discuss the case with further with Dr. Jerry. Total conscious sedation of 30 minutes. VIRGIL/RENEE Voice ID: [id number] Report ID: [id number]
[2018-01-11] MEDS: ATORVASTATIN 40 MG TAB PO SCH (21:39)
[2018-01-11] MEDS: TAMSULOSIN 0.4 MG SR CAP PO SCH (21:39)
[2018-01-11] MEDS: TRAMADOL HCL 50 MG TAB PO PRN (21:41)
[2018-01-12] MEDS: HYDROCODONE/APAP 7.5/325 MG TAB PO PRN ×2 (01:00→09:43)
[2018-01-12] MEDS: METOPROLOL TAR 25 MG TAB PO SCH (05:09)
[2018-01-12] MEDS: NA CHLORIDE 0.9% 1,000 ML IV SCH (05:10)
--- NOTE | 2018-01-12 09:01 | P.DS ---
Admission Date: 01/11/18 Discharge Date: 01/12/18 Primary Care Provider: None Disposition: ROUTINE DISCHARGE Discharge Condition: GOOD Reason for Admission: Chest pain, abdominal pain Consultations: Cardiology-Dr. Wiggins Procedures: Echocardiogram: Ejection fraction 51% LEFT VENTRICULAR WALL MOTION: NORMAL DOPPLER/COLOR FLOW: MILD TRICUSPID REGURGITATION. COMMENTS: MILD TRICUSPID REGURGITATION. NORMAL RIGHT VENTRICULAR SYSTOLIC PRESSURE. NORMAL LEFT VENTRIUCLAR EJECTION FRACTION AND SIZE. LEFT ATRIUM ENLARGEMENT. Cardiac stress test: COMPARISON: No comparisons TECHNIQUE: The patient was administered approximately 10mCi of Tc 99m Sestamibi prior to resting SPECT imaging of the heart. The patient was then administered approximately 30 mCi of Tc 99m Sestamibi following exercise or pharmacologic stress. Multiplanar SPECT images were reviewed. FINDINGS: Mild focal area of diminished radiopharmaceutical is seen with stress at the LV apex. This is compatible with a small area of mild stress- induced ischemia. No fixed defect is seen to suggest hibernating myocardium or scarred myocardium. The end diastolic volume is 161 ml, the end systolic volume is 90 ml, and the ejection fraction is 39 %. IMPRESSION: A small area of mild stress-induced ischemia is suspected LV apex. Heart catheterization: Date of Procedure: 01/10/2018 Surgeon: Musa Wiggins MD The procedure was left heart catheterization, selective coronary artery angiogram. The patient had normal coronaries on the left. He had about 30% distal RCA stenosis. A 6-Setswana sheath was used in the right common femoral artery. Angio-Seal was used to close the case. Six-Setswana catheters were used for the diagnostic catheterization. There were no complications. Blood Loss: 5 cc. Postoperative Diagnosis: Minimal CAD. Plan: Plan for medical therapy. Medical problem list: Chest pain status post heart catheterization showing minimal CAD without need for stenting. Medical therapy recommended. Hypertension Hyperlipidemia BPH History of urinary retention requiring occasional self catheterization Brief History of Present Illness: 57-year-old male presented emergency room with chest pain. Patient evaluated in the emergency room. CT scan did not show any chest abnormality. Patient with history of hypertension, TIA, urinary retention requiring self catheterization. Patient was admitted for further evaluation. Hospital Course: Patient presented with chest pain by Cardiology. Cardiology recommended echocardiogram and stress test. Echocardiogram unremarkable. Stress test showed some stress-induced ischemia. Heart catheterization was then performed. Heart catheterization showed normal coronaries on the left side. 30% stenosis of the right distal Coronary artery noted. Cardiology recommended medical therapy for his CAD. At discharge patient will continue with aspirin 81 mg daily. Better control of his hypertension is recommended. At discharge he will continue with blood pressure medication including lisinopril 20 mg 1 pill twice daily, Norvasc 10 mg 1 pill daily, and metoprolol 25 mg 1 pill twice daily. Patient will also start statin medication. Patient has hypertension. Patient had not been taking medication. Medication started. Adjustment in medication required during his stay. At discharge patient will continue with lisinopril 20 mg 1 pill twice daily, Norvasc 10 mg 1 pill daily, and metoprolol 25 mg 1 pill twice daily. Recommendation is to maintain blood pressures less 150/80. Further adjustment can be done by his PCP. Patient has history of urinary retention. Patient self caths from time to time. CT scan showed enlarged prostate. Patient evaluated by Urology. PSA slightly elevated at 7.3. Patient was started on Flomax. At discharge she will continue with Flomax 0.4 mg 1 pill daily. Recommendation is for the patient follow up with urology in 1-2 weeks to follow up this hospitalization and continue his care. Patient will continue to self cath as needed. Patient will be given information to get supplies as an outpatient. Patient has hyperlipidemia. Patient will be started on Lipitor 40 mg 1 pill once daily especially with his CAD. Further adjustment can be done by his PCP. Patient has chronic pain. Patient will be given information on pain management so that he may follow up with. A limited supply of pain medication-tramadol 50 mg 1 pill 3 times a day as needed for pain will be provided. Vital Signs/Physical Exam: Temp Pulse Resp BP Pulse Ox 97.9 F 62 18 121/75 97 01/12/18 08:00 01/12/18 08:00 01/12/18 08:00 01/12/18 08:00 01/12/18 08:00 General: Alert, Oriented x3, Cooperative HEENT: Atraumatic Neck: Supple Respiratory: Clear to auscultation bilaterally, Normal air movement Cardiovascular: Normal pulses, Regular rate/rhythm Gastrointestinal: Normal bowel sounds, Soft and benign, Non-distended, No tenderness, No masses, No rebound, No guarding Musculoskeletal: No erythema, No tenderness, No warmth Integumentary: No tenderness/swelling, No erythema, No warmth, No cyanosis Neurological: Normal speech, Normal strength at 5/5 x4 extr, Normal tone, Normal affect Laboratory Data at Discharge: WBC 4.4 K/uL (4.3-10.9) 01/11/18 04:04 Hgb 13.5 g/dL (13.6-17.9) L 01/11/18 04:04 Hct 39.9 % (39.6-49.0) 01/11/18 04:04 Plt Count 194 K/uL (152-406) 01/11/18 04:04 PT 11.7 SECONDS (9.5-12.5) 01/09/18 16:15 INR 0.99 01/09/18 16:15 APTT 30.6 SECONDS (24.3-36.9) 01/09/18 16:15 Sodium 144 mmol/L (136-145) 01/11/18 04:04 Potassium 3.9 mmol/L (3.5-5.1) 01/11/18 04:04 BUN 10 mg/dL (7-18) 01/11/18 04:04 Creatinine 0.70 mg/dL (0.55-1.3) 01/11/18 04:04 Glucose 86 mg/dL (74-106) 01/11/18 04:04 Magnesium 2.3 mg/dL (1.8-2.4) 01/11/18 04:04 Total Bilirubin 0.5 mg/dL (0.2-1.0) 01/09/18 16:15 AST 13 U/L (15-37) L 01/09/18 16:15 ALT 22 U/L (12-78) 01/09/18 16:15 Alkaline Phosphatase 89 U/L (45-117) 01/09/18 16:15 Troponin I < 0.02 ng/mL (0.0-0.045) 01/10/18 05:30 Triglycerides 122 mg/dL (<150) 01/10/18 05:30 Cholesterol 117 mg/dL (<200) 01/10/18 05:30 HDL Cholesterol 35 mg/dL (40-60) L 01/10/18 05:30 Cholesterol/HDL Ratio 3.34 01/10/18 05:30 Lipase 175 U/L (73-393) 01/09/18 16:15 Home Medications: Aspirin [Aspirin EC 81 MG] 81 mg PO DAILY #90 tablet. 01/10/18 Metoprolol Tartrate [Lopressor*] 25 mg PO BID 6AM 6PM #60 tab 01/10/18 Tamsulosin [Flomax*] 0.4 mg PO BEDTIME #30 cap 01/10/18 traMADol HCL [Ultram*] 50 mg PO TID PRN #10 tab 01/10/18 Amlodipine [Norvasc*] 10 mg PO DAILY #30 tab 01/12/18 Atorvastatin Calcium [Lipitor] 40 mg PO BEDTIME #30 tab 01/12/18 Lisinopril [Prinivil*] 20 mg PO BID #60 tab 01/12/18 New Medications: Amlodipine [Norvasc*] 10 mg PO DAILY #30 tab Aspirin [Aspirin EC 81 MG] 81 mg PO DAILY #90 tablet. Atorvastatin Calcium [Lipitor] 40 mg PO BEDTIME #30 tab Lisinopril [Prinivil*] 20 mg PO BID #60 tab Metoprolol Tartrate [Lopressor*] 25 mg PO BID 6AM 6PM #60 tab Tamsulosin [Flomax*] 0.4 mg PO BEDTIME #30 cap traMADol HCL [Ultram*] 50 mg PO TID PRN #10 tab PRN Reason: Pain Patient Discharge Instructions: 1. Patient will need to establish care with a PCP to follow up this hospitalization. 2. Patient presented with chest pain by Cardiology. Cardiology recommended echocardiogram and stress test. Echocardiogram unremarkable. Stress test showed some stress-induced ischemia. Heart catheterization was then performed. Heart catheterization showed normal coronaries on the left side. 30% stenosis of the right distal Coronary artery noted. Cardiology recommended medical therapy for his CAD. At discharge patient will continue with aspirin 81 mg daily. Better control of his hypertension is recommended. At discharge he will continue with blood pressure medication including lisinopril 20 mg 1 pill twice daily, Norvasc 10 mg 1 pill daily, and metoprolol 25 mg 1 pill twice daily. Patient will also start statin medication. 3. Patient has hypertension. Patient had not been taking medication. Medication started. Adjustment in medication required during his stay. At discharge patient will continue with lisinopril 20 mg 1 pill twice daily, Norvasc 10 mg 1 pill daily, and metoprolol 25 mg 1 pill twice daily. Recommendation is to maintain blood pressures less 150/80. Further adjustment can be done by his PCP. 4. Patient has history of urinary retention. Patient self caths from time to time. CT scan showed enlarged prostate. Patient evaluated by Urology. PSA slightly elevated at 7.3. Patient was started on Flomax. At discharge she will continue with Flomax 0.4 mg 1 pill daily. Recommendation is for the patient follow up with urology in 1-2 weeks to follow up this hospitalization and continue his care. Patient will continue to self cath as needed. Patient will be given information to get supplies as an outpatient. 5. Patient has hyperlipidemia. Patient will be started on Lipitor 40 mg 1 pill once daily especially with his CAD. Further adjustment can be done by his PCP. 6. Patient has chronic pain. Patient will be given information on pain management so that he may follow up with. A limited supply of pain medication-tramadol 50 mg 1 pill 3 times a day as needed for pain will be provided. Diet: AHA Activity: Ad otilia Time spent managing pt's care (in minutes): 55
[2018-01-12] MEDS: AMLODIPINE 10 MG TAB PO SCH (09:03)
[2018-01-12] MEDS: LISINOPRIL 20 MG TAB PO SCH (09:04)
[2018-01-12] MEDS: ASPIRIN EC 81 MG TAB PO SCH (09:05)
[2018-01-12] MEDS: ACETAMINOPHEN 500 MG TAB PO PRN (13:34)
--- NOTE | 2018-01-12 18:25 | PN ---
Subjective: The patient has cardiac cath done yesterday, showed mild stenosis of all the coronaries, 30% I believe. Still did not receive a stent. He is going to go home on tamsulosin and followup wi th me in the office that will make 2 days. If voiding becomes difficulty, we will need to follow up with his PSA, possibly do a 4K PSA and the cysto uroflow to evaluate further rule out prostate cancer and then deal with the BPH after that. YASMIN/RENEE Voice ID: [id number] Report ID: [id number]
== END 2018-01-12 14:30 | disposition home or self-care (01) | DRG 287 ==
LOC: ER 15:09 → ERHOLD 17:19 → 4TH 19:27 → OBSVTOIN 01-11 18:57
PROVIDERS: ADMIT Family Medicine; ATTEND Family Medicine
PROC: 4A023N7 Measurement of Cardiac Sampling and Pressure, Left Heart, Percutaneous Approach (ICD-10-PCS; principal; 2018-01-11)
PROC: B2111ZZ Fluoroscopy of Multiple Coronary Arteries using Low Osmolar Contrast (ICD-10-PCS; 2018-01-11)
DX: R07.89 Other chest pain (principal); I25.10 Atherosclerotic heart disease of native coronary artery without angina pectoris; R10.32 Left lower quadrant pain; I10 Essential (primary) hypertension; N40.1 Benign prostatic hyperplasia with lower urinary tract symptoms; R33.8 Other retention of urine; E78.5 Hyperlipidemia, unspecified; Z79.82 Long term (current) use of aspirin; Z86.73 Personal history of transient ischemic attack (TIA), and cerebral infarction without residual deficits; Z82.49 Family history of ischemic heart disease and other diseases of the circulatory system
CPT/HCPCS: 36415; 70450; 71045; 71275; 74175; 78452; 80048; 80061; 80076; 81003; 82550; 82553; 83690; 83735; 83880; 84145; 84153; 84439; 84443; 84484; 85025; 85610; 85730; 87086; 87088; 93005; 93017; 93306; 93454; 96361; 96365; 96368; 96372; 96375; 99285; A9500; C1760; C1893; G0378; J0583; J0696; J0744; J1650; J2250; J2405; J2785; J3010; J7030; Q9967

== ENCOUNTER 2018-04-25 11:32 | Emergency (ER) | payer OTHER ==
[2018-04-25] MEDS ORDERED: MORPHINE 4 MG/ML SYR ONE (13:02)
[2018-04-25] MEDS ORDERED: ONDANSETRON 4 MG/2 ML VIAL ONE (13:02)
[2018-04-25] MEDS ORDERED: CARVEDILOL 6.25 MG TAB ONE (13:20)
[2018-04-25] MEDS ORDERED: AMLODIPINE 5 MG TAB ONE (13:20)
[2018-04-25] MEDS ORDERED: LISINOPRIL 20 MG TAB ONE (13:21)
[2018-04-25 13:24] LABS: ALT/SGPT 21 U/L (12-78); AST/SGOT 11 U/L (15-37); Albumin 3.6 g/dL (3.4-5.0); Alkaline Phosphatase 89 U/L (45-117); BUN Blood Urea Nitrogen 11 mg/dL (7-18); Bicarbonate 25 mmol/L (21-32); Bilirubin Direct 0.2 mg/dL (0-0.2); Bilirubin Total 0.7 mg/dL (0.2-1.0); Glucose Level 94 mg/dL (74-106); Magnesium 2.4 mg/dL (1.8-2.4); NT PRO-BNP 883 pg/mL (<125); Potassium 4.1 mmol/L (3.5-5.1); Sodium Level 142 mmol/L (136-145); Troponin (Emerg Dept Use Only) < 0.02 ng/mL (0.0-0.045)
[2018-04-25 13:26] LABS: Protime INR 1.01
--- NOTE | 2018-04-25 13:26 | RAD REPORT ---
EXAM DESCRIPTION: RAD - Chest Single View - 04/25/2018 1:18 pm CLINICAL HISTORY: shortness of breath Chest pain. COMPARISON: Chest Single View dated 01/09/2018 FINDINGS: Portable technique limits examination quality. The lungs are grossly clear. The heart is normal in size. No displaced fractures. IMPRESSION: No acute intrathoracic process suspected.
[2018-04-25 13:34] LABS: Absolute Lymphocytes (CBC) 1.3 K/uL (0.7-4.9); Absolute Monocytes 0.6 K/uL (0.1-1.3); Absolute Neutrophil 4.6 K/uL (1.8-8.0); Basophils % 0.4 % (0-1.3); Hematocrit 45.7 % (39.6-49.0); Lymphocytes % 19.4 % (15.3-44.8); MCH 29.7 pg (27.0-35.0); MCV 87.9 fL (80-100); MPV 9.8 fL (7.6-11.3)
--- NOTE | 2018-04-25 13:54 | RAD REPORT ---
EXAM DESCRIPTION: CT - Angio Aorta For Dissection - 04/25/2018 1:46 pm CLINICAL HISTORY: Chest pain radiating to the back. right sided back pain, shortness of breath COMPARISON: Angio Aorta For Dissection dated 01/09/2018 TECHNIQUE: CT angiography of the aorta was performed with MIPs. All CT scans are performed using dose optimization technique as appropriate and may include automated exposure control or mA/KV adjustment according to patient size. FINDINGS: A left aortic arch is present with normal branching pattern of the great vessels.The root of the thoracic aorta measures 4.4 cm transverse dimension, unchanged. No acute aortic finding such a s dissection or penetrating ulcer. The celiac axis, SMA, JIM and renal arteries are patent with mild ostial atherosclerosis noted. No evidence of pulmonary embolism. The lungs are mildly emphysematous but clear. The liver demonstrates no focal mass or biliary dilatation.Several low-density liver lesions are seen , likely cysts.The spleen, pancreas, adrenal glands and kidneys are within normal limits for arterial phase imaging. No bowel obstruction, free fluid or abscess.Sigmoid diverticulosis without diverticulitis.No patholog ic enlarged lymphadenopathy identified. Significant prostatomegaly is present. IMPRESSION: No acute aortic finding is demonstrated. Significant prostatomegaly.
[2018-04-25 14:12] LABS: Urine Blood NEGATIVE (NEG); Urine Glucose NEGATIVE (NEG); Urine Protein NEGATIVE (NEG); Urine Specific Gravity 1.015 (1.005-1.030); Urine pH 7.5 (5.0-7.0)
[2018-04-25] MEDS ORDERED: ACETAMINOPHEN 325 MG TABLET ONE (14:25)
[2018-04-25] MEDS ORDERED: DIAZEPAM 10 MG/2 ML INJ SYRINGE ONE (14:26)
--- NOTE | 2018-04-25 15:10 | ER ---
Nurse's Notes [facility] Name: Roman Gooden Age: 58 yrs Sex: Male : 1960 Arrival Date: 04/25/2018 Time: 11:33 Bed 25 Private MD: Diagnosis: Dental Pain;Muscle spasm of back Presentation: 04/25 12:10 Presenting complaint: Patient states: Back spasms, and SOB x 3 days, denies fever or ph recent illness, SpO2 98% RA but pt is tachypneic at 26 bpm, also reports pain and possible infection in 2 bottom teeth. Transition of care: patient was not received from another setting of care. Onset of symptoms was April 25, 2018. Risk Assessment: Do you want to hurt yourself or someone else? Patient reports no desire to harm self or others. Initial Sepsis Screen: Does the patient meet any 2 criteria? No. Patient's initial sepsis screen is negative. Does the patient have a suspected source of infection? No. Patient's initial sepsis screen is negative. Care prior to arrival: None. 12:10 Method Of Arrival: Ambulatory ph 12:10 Acuity: DAVID 3 ph Historical: - Allergies: 12:13 No Known Allergies; ph - Home Meds: 13:18 amlodipine 10 mg tab 1 tab once daily [Active]; carvedilol 6.25 mg oral tab 1 tab 2 la1 times per day [Active]; lisinopril 20 mg Oral tab 1 tab once daily [Active]; tamsulosin 0.4 mg oral cp24 1 cap once daily [Active]; atorvastatin 40 mg oral tab 1 tab once daily [Active]; amitriptyline 10 mg Oral tab 1 tab once daily [Active]; - PMHx: 12:13 Hypertension; TIA; UTI; ph - PSHx: 12:13 ankle surgery; Tonsillectomy; eye surgery; ph - Immunization history:: Adult Immunizations unknown. - Social history:: Smoking status: Patient/guardian denies using tobacco. - Ebola Screening: : No symptoms or risks identified at this time. Screenin:04 Abuse screen: Denies threats or abuse. Nutritional screening: No deficits noted. la1 Tuberculosis screening: No symptoms or risk factors identified. Fall Risk None identified. Assessment: 13:03 General: Appears in no apparent distress. Behavior is calm, cooperative. Pain: la1 Complains of pain in right subscapular area, right mid back and right low back. Neuro: Level of Consciousness is awake, alert, obeys commands, Oriented to person, place, time, situation. Cardiovascular: Heart tones S1 S2 present Capillary refill < 3 seconds Patient's skin is warm and dry. Rhythm is sinus rhythm Chest pain is described as mild, is located in left anterior. Respiratory: Airway is patent Respiratory effort is even, unlabored, Respiratory pattern is regular, symmetrical, Breath sounds are clear bilaterally. GI: No signs and/or symptoms were reported involving the gastrointestinal system. : No signs and/or symptoms were reported regarding the genitourinary system. 15:25 Reassessment: Patient appears in no apparent distress at this time. No changes from la1 previously documented assessment. Patient and/or family updated on plan of care and expected duration. Pain level reassessed. Patient is alert, oriented x 3, equal unlabored respirations, skin warm/dry/pink. Vital Signs: 12:11 BP 145 / 99; Pulse 95; Resp 26; Temp 97.9; Pulse Ox 98% on R/A; Weight 99.79 kg; Height ph 5 ft. 10 in. (177.80 cm); Pain 9/10; 13:02 BP 155 / 115; Pulse 78; Resp 16; Pulse Ox 97% on R/A; la1 14:27 BP 176 / 115; Pulse 73; Resp 16; Pulse Ox 98% on R/A; la1 15:25 BP 156 / 112; Pulse 71; Resp 16; Pulse Ox 98% on R/A; la1 12:11 Body Mass Index 31.57 (99.79 kg, 177.80 cm) ph ED Course: 11:33 Patient arrived in ED. as 12:10 [facility] Blunt [facility] 12:10 Marvin Begum MD is Attending Physician. [facility] 12:11 Triage completed. ph 12:13 Arm band placed on. ph 12:16 Joel Blunt PA is PHCP. [facility] 12:16 Marvin Begum MD is Attending Physician. jm 12:25 Placed in gown. Bed in low position. Call light in reach. Side rails up X 1. Side rails jp3 up X2. Warm blanket given. Pillow given. Pulse ox on. NIBP on. 12:31 Placido Mccall, RN is Primary Nurse. la1 12:45 Inserted saline lock: 22 gauge in left forearm, using aseptic technique. Blood jp3 collected. 12:45 Initial lab(s) drawn, by me, sent to lab. Patient maintains SpO2 saturation greater jp3 than 95% on room air. 12:59 environmental monitoring specialist on. jp3 12:59 Basic Metabolic Panel Sent. jp3 12:59 CBC with Diff Sent. jp3 12:59 Magnesium Sent. jp3 12:59 LFT's Sent. jp3 12:59 NT PRO-BNP Sent. jp3 12:59 PT-INR Sent. jp3 12:59 Troponin (emerg Dept Use Only) Sent. jp3 13:17 X-ray completed. Portable x-ray completed in exam room. Patient tolerated procedure mh1 well. 13:21 XRAY Chest (1 view) In Process Unspecified. EDMS 13:34 EKG done, by concrete technician. reviewed by Joel COURTNEY. 3 13:47 CT Aorta for Dissection In Process Unspecified. EDMS 15:25 No provider procedures requiring assistance completed. IV discontinued, intact, la1 bleeding controlled, No redness/swelling at site. Pressure dressing applied. Administered Medications: 13:02 Drug: morphine 4 mg Route: IVP; Site: left antecubital; la1 13:20 Follow up: Response: No adverse reaction; Pain is decreased la1 13:02 Drug: Zofran 4 mg Route: IVP; Site: left antecubital; la1 13:20 Follow up: Response: No adverse reaction la1 13:19 Drug: carvedilol 6.25 mg Route: PO; la1 14:23 Follow up: Response: No adverse reaction la1 13:19 Drug: amLODIPine 10 mg Route: PO; la1 14:24 Follow up: Response: No adverse reaction la1 13:19 Drug: Lisinopril 20 mg Route: PO; la1 14:24 Follow up: Response: No adverse reaction la1 14:23 Drug: Tylenol 650 mg Route: PO; la1 15:26 Follow up: Response: No adverse reaction; Pain is decreased la1 14:23 Drug: Valium 2 mg Route: IVP; Site: left antecubital; la1 15:26 Follow up: Response: No adverse reaction; Pain is decreased la1 Outcome: 15:10 Discharge ordered by . olga 15:25 Discharged to home ambulatory. la1 15:25 Condition: stable 15:25 Discharge instructions given to patient, Instructed on discharge instructions, follow up and referral plans. medication usage, Demonstrated understanding of instructions, follow-up care, medications, Prescriptions given X 2. 15:26 Patient left the ED. la1 Signatures: Dispatcher [employer] EDMS Joel Blunt PA PA jmm Harvey, Martha 1 Charissa Lee Lee, RN RN la1 Dora Mon RN RN Madhavi Castillo 3 King Ochoa 3
--- NOTE | 2018-04-25 15:11 | EDPHYS ---
Physician Documentation [facility] Name: Roman Gooden Age: 58 yrs Sex: Male : 1960 Arrival Date: 04/25/2018 Time: 11:33 Bed 25 Private MD: ED Physician Marvin Begum HPI: 04/25 12:47 This 58 yrs old Male presents to ER via Ambulatory with complaints of Back jmm Pain, Toothache. 12:47 The patient presents with pain that is acute, with no known mechanism of injury. The jmm symptoms are located in the right scapular area, right subscapular area, right mid back and right low back. Onset: The symptoms/episode began/occurred gradually, 2 day(s) ago. The pain radiates to the right scapular area, right subscapular area, right mid back and right low back. Associated signs and symptoms: Pertinent positives: shortness of breath. This is a 58 year old male with a history of HTN that presents to the ED with right sided back pain which he initially attributed to a muscle spasm which he has experienced in the past. Patient states the pain now is worse than previous episodes. Patient also complains of intermittent episodes of shortness of breath which he does not correlate with his back pain. Patient also complains of 2 days of ongoing bilateral lower molar dental pain with swelling to his jaw. . Historical: - Allergies: 12:13 No Known Allergies; ph - Home Meds: 13:18 amlodipine 10 mg tab 1 tab once daily [Active]; carvedilol 6.25 mg oral tab 1 tab 2 la1 times per day [Active]; lisinopril 20 mg Oral tab 1 tab once daily [Active]; tamsulosin 0.4 mg oral cp24 1 cap once daily [Active]; atorvastatin 40 mg oral tab 1 tab once daily [Active]; amitriptyline 10 mg Oral tab 1 tab once daily [Active]; - PMHx: 12:13 Hypertension; TIA; UTI; ph - PSHx: 12:13 ankle surgery; Tonsillectomy; eye surgery; ph - Immunization history:: Adult Immunizations unknown. - Social history:: Smoking status: Patient/guardian denies using tobacco. - Ebola Screening: : No symptoms or risks identified at this time. ROS: 12:47 Constitutional: Negative for fever, chills, and weight loss, Cardiovascular: Negative [facility] for chest pain, palpitations, and edema. 12:47 Abdomen/GI: Negative for abdominal pain, nausea, vomiting, diarrhea, and constipation. 12:47 ENT: Positive for dental pain. 12:47 Respiratory: Positive for shortness of breath. 12:47 Back: Positive for pain at rest, pain with movement. 12:47 All other systems are negative. Exam: 12:47 Constitutional: This is a well developed, well nourished patient who is awake, alert, jmm and in no acute distress. Head/Face: atraumatic. Chest/axilla: Normal chest wall appearance and motion. Cardiovascular: Regular rate and rhythm. No edema appreciated Respiratory: Normal respirations, no respiratory distress appreciated Abdomen/GI: Non distended, soft 12:47 Back: pain, that is mild, of the right scapular area and right subscapular area, vertebral tenderness, is not appreciated. 12:47 Musculoskeletal/extremity: ROM: intact in all extremities. 12:47 Skin: Appearance: Color: normal in color. 12:47 Neuro: Orientation: is normal, Mentation: is normal, Memory: is normal, Gait: is steady. 12:47 Psych: Behavior/mood is pleasant, cooperative. Vital Signs: 12:11 BP 145 / 99; Pulse 95; Resp 26; Temp 97.9; Pulse Ox 98% on R/A; Weight 99.79 kg; Height ph 5 ft. 10 in. (177.80 cm); Pain 9/10; 13:02 BP 155 / 115; Pulse 78; Resp 16; Pulse Ox 97% on R/A; la1 14:27 BP 176 / 115; Pulse 73; Resp 16; Pulse Ox 98% on R/A; la1 15:25 BP 156 / 112; Pulse 71; Resp 16; Pulse Ox 98% on R/A; la1 12:11 Body Mass Index 31.57 (99.79 kg, 177.80 cm) ph MDM: 12:47 Patient medically screened. [facility] 15:08 Data reviewed: vital signs, nurses notes. Counseling: I had a detailed discussion with cynthia the patient and/or guardian regarding: the historical points, exam findings, and any diagnostic results supporting the discharge/admit diagnosis, lab results, radiology results, the need for outpatient follow up, to return to the emergency department if symptoms worsen or persist or if there are any questions or concerns that arise at home. 04/25 12:48 Order name: Basic Metabolic Panel; Complete Time: 13:38 [facility] 04/25 12:48 Order name: CBC with Diff; Complete Time: 13:38 [facility] 04/25 12:48 Order name: LFT's; Complete Time: 13:38 [facility] 04/25 12:48 Order name: Magnesium; Complete Time: 13:38 [facility] 04/25 12:48 Order name: NT PRO-BNP; Complete Time: 13:38 [facility] 04/25 12:48 Order name: PT-INR; Complete Time: 13:38 [facility] 04/25 12:48 Order name: Troponin (emerg Dept Use Only); Complete Time: 13:38 [facility] 04/25 12:48 Order name: XRAY Chest (1 view); Complete Time: 13:38 [facility] 04/25 12:48 Order name: CT Aorta for Dissection; Complete Time: 13:58 [facility] 04/25 14:08 Order name: Urine Dipstick--Ancillary (enter results); Complete Time: 14:13 04/25 12:48 Order name: EKG; Complete Time: 12:49 [facility] 04/25 12:48 Order name: Cardiac monitoring; Complete Time: 13:00 [facility] 04/25 12:48 Order name: EKG - Nurse/Tech; Complete Time: 13:19 [facility] 04/25 12:48 Order name: IV Saline Lock; Complete Time: 13:00 [facility] 04/25 12:48 Order name: Labs collected and sent; Complete Time: 12:59 [facility] 04/25 12:48 Order name: O2 Per Protocol; Complete Time: 12:59 [facility] 04/25 12:48 Order name: O2 Sat Monitoring; Complete Time: 13:00 [facility] Administered Medications: 13:02 Drug: morphine 4 mg Route: IVP; Site: left antecubital; la1 13:20 Follow up: Response: No adverse reaction; Pain is decreased la1 13:02 Drug: Zofran 4 mg Route: IVP; Site: left antecubital; la1 13:20 Follow up: Response: No adverse reaction la1 13:19 Drug: carvedilol 6.25 mg Route: PO; la1 14:23 Follow up: Response: No adverse reaction la1 13:19 Drug: amLODIPine 10 mg Route: PO; la1 14:24 Follow up: Response: No adverse reaction la1 13:19 Drug: Lisinopril 20 mg Route: PO; la1 14:24 Follow up: Response: No adverse reaction la1 14:23 Drug: Tylenol 650 mg Route: PO; la1 15:26 Follow up: Response: No adverse reaction; Pain is decreased la1 14:23 Drug: Valium 2 mg Route: IVP; Site: left antecubital; la1 15:26 Follow up: Response: No adverse reaction; Pain is decreased la1 Disposition: 04/26 07:36 Co-signature as Attending Physician, Marvin Begum MD I agree with the assessment and kdr plan of care. Disposition: 04/25/18 15:10 Discharged to Home. Impression: Dental Pain, Muscle spasm of back. - Condition is Stable. - Discharge Instructions: Dental Caries, Adult, Muscle Cramps and Spasms. - Prescriptions for penicillin V potassium 500 mg Oral tablet - take 1 tablet by ORAL route every 6 hours; 40 tablet. Zanaflex 4 mg Oral Tablet - take 1 tablet by ORAL route every 8 hours As needed; 20 tablet. - Medication Reconciliation Form, Thank You Letter, Antibiotic Education, Prescription Opioid Use form. - Follow up: Private Physician; When: 2 - 3 days; Reason: Recheck today's complaints, Continuance of care, Re-evaluation by your physician. Signatures: Dispatcher [employer] EDMarvin Kelly MD MD kdr Mickail, Joel, PA PA [facility] Placido Mccall RN RN la1 Dora Mon RN RN ph Corrections: (The following items were deleted from the chart) 04/25 15:26 15:10 04/25/2018 15:10 Discharged to Home. Impression: Dental Pain; Muscle spasm of la1 back. Condition is Stable. Forms are Medication Reconciliation Form, Thank You Letter, Antibiotic Education, Prescription Opioid Use. Follow up: Private Physician; When: 2 - 3 days; Reason: Recheck today's complaints, Continuance of care, Re-evaluation by your physician. olga
--- NOTE | 2018-04-25 17:16 | EKG ---
Test Date: 2018-04-25 Test Time: 13:14:20 Inventory Clerk: AG/S MEASUREMENT RESULTS: Intervals: Rate: 67 IA: 188 QRSD: 70 QT: 390 QTc: 412 [place]: P: 33 IA: 188 QRS: 21 T: 50 INTERPRETIVE STATEMENTS: Normal sinus rhythm Nonspecific T wave abnormality Abnormal ECG Compared to ECG 01/09/2018 20:39:32 Sinus bradycardia no longer present First degree AV block no longer present T-wave abnormality still present Electronically Signed On 04-25-18 17:15:47 WEB ART DIRECTOR by Morgan Galeano
== END 2018-04-25 15:26 | disposition home or self-care (01) ==
LOC: ER 11:32
DX: M62.830 Muscle spasm of back (principal); I10 Essential (primary) hypertension; Z86.73 Personal history of transient ischemic attack (TIA), and cerebral infarction without residual deficits
CPT/HCPCS: 36415; 71045; 71275; 74175; 80048; 80076; 81003; 83735; 83880; 84484; 85025; 85610; 93005; 96374; 96375; 99285; J2405; J3360; Q9967

== ENCOUNTER 2018-04-30 11:57 | Observation (INO) | payer OTHER ==
--- NOTE | 2018-04-30 13:26 | RAD REPORT ---
EXAM DESCRIPTION: CT - Head Brain Wo Cont - 04/30/2018 1:14 pm CLINICAL HISTORY: Headache COMPARISON: January 2018 TECHNIQUE: Computed axial tomography of the head was obtained. IV contrast was not requested. All CT scans are performed using dose optimization technique as appropriate and may include automated exposure control or mA/KV adjustment according to patient size. FINDINGS: 4 millimeter low-density area within the left thalamus present on the prior exam probably representing an old lacunar infarction. An intracranial bleed is not seen . The ventricles are normal in caliber. No extra-axial fluid collection is noted. Partial opacification mastoids unchanged appear. Minimal mucoperiosteal thickening ethmoid sinus IMPRESSION: No acute intracranial abnormality is seen. If patient's symptoms persist MRI of the bra in would be recommended.
[2018-04-30] MEDS ORDERED: NA CHLORIDE 0.9% 1,000 ML ONE (13:30)
[2018-04-30] MEDS ORDERED: DIAZEPAM 10 MG/2 ML INJ SYRINGE ONE (13:30)
[2018-04-30] MEDS ORDERED: KETOROLAC 30 MG/ML INJ ONE (13:30)
--- NOTE | 2018-04-30 13:41 | RAD REPORT ---
EXAM DESCRIPTION: Jose Single View04/30/2018 1:24 pm CLINICAL HISTORY: Cough COMPARISON: April 24 FINDINGS: The lungs appear clear of acute infiltrate. The heart is normal size IMPRESSION: No acute abnormalities displayed
[2018-04-30 13:49] LABS: Absolute Lymphocytes (CBC) 0.6 K/uL (0.7-4.9); Absolute Neutrophil 6.6 K/uL (1.8-8.0); Basophils % 0.3 % (0-1.3); Hematocrit 41.9 % (39.6-49.0); Lymphocytes % 7.3 % (15.3-44.8); MPV 9.2 fL (7.6-11.3); Monocytes % 11.9 % (3.3-12.3); RBC Red Blood Cell Count 4.85 M/uL (4.33-5.43)
[2018-04-30 13:53] LABS: Protime INR 1.22
[2018-04-30 13:55] LABS: ALT/SGPT 19 U/L (12-78); AST/SGOT 24 U/L (15-37); Albumin 3.2 g/dL (3.4-5.0); Alkaline Phosphatase 69 U/L (45-117); BUN Blood Urea Nitrogen 14 mg/dL (7-18); Bicarbonate 25 mmol/L (21-32); Bilirubin Direct 0.3 mg/dL (0-0.2); Bilirubin Total 0.7 mg/dL (0.2-1.0); CKMB Creatine Kinase MB < 1.0 ng/mL (0.3-3.6); Creatine Phosphokinase 162 U/L (39-308); Glucose Level 96 mg/dL (74-106); Lipase 131 U/L (73-393); Magnesium 2.4 mg/dL (1.8-2.4); Potassium 3.4 mmol/L (3.5-5.1); Sodium Level 133 mmol/L (136-145); Troponin (Emerg Dept Use Only) < 0.02 ng/mL (0.0-0.045)
--- NOTE | 2018-04-30 14:19 | ER ---
Nurse's Notes [facility] Name: Roman Gooden Age: 58 yrs Sex: Male : 1960 Arrival Date: 04/30/2018 Time: 12:00 Bed 18 Private MD: Diagnosis: Influenza due to certain identified influenza viruses Presentation: 04/30 12:25 Presenting complaint: Patient states: right side of back pain. Pt states "ove the last aa5 few days I have passed out about 3 times and I am so dizzy". Pt also reports cough and SOB. Pt reports being seen here approximately 1 week ago but reports he did not fill the prescriptions. Transition of care: patient was not received from another setting of care. Onset of symptoms was April 2018. Risk Assessment: Do you want to hurt yourself or someone else? Patient reports no desire to harm self or others. Care prior to arrival: None. 12:25 Method Of Arrival: Wheelchair aa5 12:25 Acuity: DAVID 3 aa5 13:00 Initial Sepsis Screen: Does the patient meet any 2 criteria? Temp <36.0*C (96.8*F)) or em > 38.3*C (100.9*F). HR > 90 bpm. Yes Does the patient have a suspected source of infection? No. Patient's initial sepsis screen is negative. Historical: - Allergies: 12:26 No Known Allergies; aa5 - Home Meds: 16:17 amitriptyline 10 mg Oral tab 1 tab once daily [Active]; amlodipine 10 mg tab 1 tab once em daily [Active]; atorvastatin 40 mg Oral tab 1 tab once daily [Active]; carvedilol 6.25 mg Oral tab 1 tab 2 times per day [Active]; lisinopril 20 mg Oral tab 1 tab once daily [Active]; tamsulosin 0.4 mg Oral cp24 1 cap once daily [Active]; - PMHx: 12:26 Hypertension; TIA; UTI; aa5 - PSHx: 12:26 ankle surgery; Tonsillectomy; eye surgery; aa5 - Immunization history:: Flu vaccine is not up to date. - Social history:: Smoking status: Patient/guardian denies using tobacco, Patient/guardian denies using alcohol, IV drugs, The patient lives with family. - Ebola Screening: : No symptoms or risks identified at this time. - Family history:: not pertinent. Screenin:00 Abuse screen: Denies threats or abuse. Nutritional screening: No deficits noted. em Tuberculosis screening: No symptoms or risk factors identified. Fall Risk None identified. Assessment: 13:00 General: Appears in no apparent distress. uncomfortable, Behavior is calm, cooperative, em Reports chills for fever for. Pain: Complains of pain in lumbar area Pain currently is 8 out of 10 on a pain scale. Neuro: Level of Consciousness is awake, alert, obeys commands, Oriented to person, place, time, situation, Reports dizziness, headache a syncopal episode. Cardiovascular: Denies chest pain, Patient's skin is warm and dry. Respiratory: Airway is patent Respiratory effort is even, unlabored, Respiratory pattern is regular, symmetrical. GI: Abdomen is flat, Reports nausea, vomiting. : No signs and/or symptoms were reported regarding the genitourinary system. EENT: No signs and/or symptoms were reported regarding the EENT system. Derm: Skin is intact, is healthy with good turgor, Skin is pink, warm \\T\\ dry. Musculoskeletal: Range of motion: intact in all extremities. 13:15 General: The previous assessment is accurate, call light remains within reach. ss 13:30 Reassessment: pt reports catheterizing himself at home, provider notified, new orders em received. 14:30 Reassessment: Patient appears in no apparent distress at this time. Patient and/or em family updated on plan of care and expected duration. Pain level reassessed. Patient is alert, oriented x 3, equal unlabored respirations, skin warm/dry/pink. rates pain 4/10 Patient states feeling better. 15:30 Reassessment: Patient appears in no apparent distress at this time. Patient and/or em family updated on plan of care and expected duration. Pain level reassessed. Patient is alert, oriented x 3, equal unlabored respirations, skin warm/dry/pink. pending admission orders, pt reports feeling better Patient states feeling better. 16:30 Reassessment: Patient appears in no apparent distress at this time. Patient and/or em family updated on plan of care and expected duration. Pain level reassessed. Patient is alert, oriented x 3, equal unlabored respirations, skin warm/dry/pink. 17:10 Reassessment: Patient appears in no apparent distress at this time. Patient and/or em family updated on plan of care and expected duration. Pain level reassessed. Patient is alert, oriented x 3, equal unlabored respirations, skin warm/dry/pink. dinner tray given to pt. 17:13 Reassessment: attempted to call report, no nurse assigned to room. em 18:10 Reassessment: Patient appears in no apparent distress at this time. Patient and/or ss family updated on plan of care and expected duration. Pain level reassessed. Patient is alert, oriented x 3, equal unlabored respirations, skin warm/dry/pink. Patient states feeling better. Patient states symptoms have improved. Vital Signs: 12:27 BP 118 / 87; Pulse 108; Resp 18 S; Temp 100.9(O); Pulse Ox 94% on R/A; Weight 99.79 kg aa5 (R); Height 5 ft. 10 in. (177.80 cm) (R); Pain 9/10; 13:00 BP 143 / 88; Pulse 97; Resp 18; Pulse Ox 99% on R/A; Pain 8/10; em 14:05 BP 121 / 83; Pulse 96; Resp 16; Temp 100.1(O); Pulse Ox 95% on R/A; Pain 5/10; em 15:05 BP 122 / 67; Pulse 79; Resp 16; Pulse Ox 95% on R/A; em 16:18 BP 116 / 81; Pulse 89; Resp 16; Pulse Ox 99% on R/A; Pain 5/10; em 17:10 BP 123 / 78; Pulse 81; Resp 16; Temp 98.4(O); Pulse Ox 97% on R/A; Pain 6/10; em 12:27 Body Mass Index 31.57 (99.79 kg, 177.80 cm) aa5 [place] Coma Score: 13:14 Eye Response: spontaneous(4). Verbal Response: oriented(5). Motor Response: obeys ma2 commands(6). Total: 15. ED Course: 12:00 Patient arrived in ED. sb2 12:25 Arm band placed on. aa5 12:26 Triage completed. aa5 12:32 Jamari Cameron LVN is Primary Nurse. em 12:32 Negar Cesar MD is Attending Physician. ma2 13:00 Patient has correct armband on for positive identification. Placed in gown. Bed in low em position. Call light in reach. Side rails up X2. out and out cigar maker hand on. Pulse ox on. NIBP on. 13:13 CT completed. Patient tolerated procedure well. Patient moved to CT via wheelchair. sj Patient moved back from CT. 13:14 CT Head Brain wo Cont In Process Unspecified. EDMS 13:25 Chest Single View XRAY In Process Unspecified. EDMS 13:30 Initial lab(s) drawn, by me, sent to lab. Flu and/or RSV swab sent to lab. Inserted em saline lock: 20 gauge in right antecubital area, using aseptic technique. Blood collected. 14:00 [place] cath inserted, using sterile technique, 18 Fr., by me, balloon inflated, to em gravity drainage, returned clear yellow urine. Patient tolerated well. 14:12 EKG done, by certified pharmacy tech. reviewed by Negar Cesar MD. at1 14:17 Mary Kohler MD is Hospitalizing Provider. ma2 18:09 No provider procedures requiring assistance completed. Patient admitted, IV remains in ss place. Administered Medications: 13:45 Drug: NS 0.9% 1000 ml Route: IV; Rate: 1 bolus; Site: right antecubital; em 15:40 Follow up: IV Status: Completed infusion; IV Intake: 1000ml em 13:50 Drug: TORadol 30 mg Route: IVP; Site: right antecubital; ss 15:39 Follow up: Response: No adverse reaction; Temperature is decreased em 13:50 Drug: Valium 10 mg Route: IVP; Site: right antecubital; ss 15:39 Follow up: Response: No adverse reaction; Pain is decreased em 14:10 Drug: Acetaminophen 1000 mg Route: PO; em 17:10 Follow up: Response: No adverse reaction; Temperature is decreased em 14:10 Drug: Tamiflu 75 mg Route: PO; em 15:39 Follow up: Response: No adverse reaction em Intake: 15:40 IV: 1000ml; Total: 1000ml. em Outcome: 14:18 Decision to Hospitalize by Provider. ma2 18:09 Admitted to Med/surg accompanied by tech, via wheelchair, room 417, with chart, Report ss called to Blake Fair RN 18:09 Condition: good 18:09 Instructed on the need for admit, Demonstrated understanding of instructions. 18:10 Patient left the ED. ss Signatures: Dispatcher [employer] Kina Love Edgar, SELF PROPELLED MINING MACHINE OPERATOR SELF PROPELLED MINING MACHINE OPERATOR Perla Everett, JAMES RN aa5 Jesica Del Valle RN RN ss Ani Cabello, covering and lining supervisor EKG Tat1 Negar Cesar MD MD ma2 Krupa Odell sb2 Corrections: (The following items were deleted from the chart) 12:25 Presenting complaint: Patient states: right side of back pain. Pt states "ove the aa5 last few days I have passed out about 3 times". Pt also reports cough. Pt reports being seen here approximately 1 week ago. aa5 12:25 Presenting complaint: Patient states: right side of back pain. Pt states "ove the aa5 last few days I have passed out about 3 times and I am so dizzy". Pt also reports cough. Pt reports being seen here approximately 1 week ago. aa5 12:25 Presenting complaint: Patient states: right side of back pain. Pt states "ove the aa5 last few days I have passed out about 3 times and I am so dizzy". Pt also reports cough and SOB. Pt reports being seen here approximately 1 week ago. aa5
--- NOTE | 2018-04-30 14:19 | EDPHYS ---
Physician Documentation [facility] Name: Roman Gooden Age: 58 yrs Sex: Male : 1960 Arrival Date: 04/30/2018 Time: 12:00 Bed 18 Private MD: ED Physician Negar Cesar HPI: 04/30 13:14 This 58 yrs old Male presents to ER via Wheelchair with complaints of Flu ma2 Symptoms. 13:14 The patient complains of pain to the forehead. Onset: The symptoms/episode ma2 began/occurred gradually, 2 day(s) ago. Severity of symptoms: At its worst the pain was moderate. Headache History: The patient has had previous headaches. The patient has experienced similar episodes in the past. has headache lower back pain and syncope 3 times today, he has flue like symptoms cough and sore throat and chronic lower back pain . Historical: - Allergies: 12:26 No Known Allergies; aa5 - Home Meds: 16:17 amitriptyline 10 mg Oral tab 1 tab once daily [Active]; amlodipine 10 mg tab 1 tab once em daily [Active]; atorvastatin 40 mg Oral tab 1 tab once daily [Active]; carvedilol 6.25 mg Oral tab 1 tab 2 times per day [Active]; lisinopril 20 mg Oral tab 1 tab once daily [Active]; tamsulosin 0.4 mg Oral cp24 1 cap once daily [Active]; - PMHx: 12:26 Hypertension; TIA; UTI; aa5 - PSHx: 12:26 ankle surgery; Tonsillectomy; eye surgery; aa5 - Immunization history:: Flu vaccine is not up to date. - Social history:: Smoking status: Patient/guardian denies using tobacco, Patient/guardian denies using alcohol, IV drugs, The patient lives with family. - Ebola Screening: : No symptoms or risks identified at this time. - Family history:: not pertinent. ROS: 13:14 Constitutional: Negative for fever, chills, and weight loss. ma2 13:14 ENT: Negative for injury, pain, and discharge, Neck: Negative for injury, pain, and swelling. 13:14 Cardiovascular: Positive for syncope, Negative for chest pain, edema, orthopnea, paroxysmal nocturnal dyspnea. 13:14 Respiratory: Positive for cough, Negative for dyspnea on exertion, hemoptysis, orthopnea, pleurisy, shortness of breath, sputum production, wheezing. 13:14 Back: Positive for pain with movement, Negative for injury or acute deformity, decreased range of motion, pain at rest. 13:14 All other systems are negative. Exam: 13:14 Constitutional: This is a well developed, well nourished patient who is awake, alert, ma2 and in no acute distress. Chest/axilla: Normal chest wall appearance and motion. Nontender with no deformity. No lesions are appreciated. Cardiovascular: Regular rate and rhythm with a normal S1 and S2. No gallops, murmurs, or rubs. Normal PMI, no JVD. No pulse deficits. Respiratory: Lungs have equal breath sounds bilaterally, clear to auscultation and percussion. No rales, rhonchi or wheezes noted. No increased work of breathing, no retractions or nasal flaring. Abdomen/GI: Soft, non-tender, with normal bowel sounds. No distension or tympany. No guarding or rebound. No evidence of tenderness throughout. Back: No spinal tenderness. No costovertebral tenderness. Full range of motion. MS/ Extremity: Pulses equal, no cyanosis. Neurovascular intact. Full, normal range of motion. Neuro: Awake and alert, GCS 15, oriented to person, place, time, and situation. Cranial nerves II-XII grossly intact. Motor strength 5/5 in all extremities. Sensory grossly intact. Cerebellar exam normal. Normal gait. Psych: Awake, alert, with orientation to person, place and time. Behavior, mood, and affect are within normal limits. Vital Signs: 12:27 BP 118 / 87; Pulse 108; Resp 18 S; Temp 100.9(O); Pulse Ox 94% on R/A; Weight 99.79 kg aa5 (R); Height 5 ft. 10 in. (177.80 cm) (R); Pain 9/10; 13:00 BP 143 / 88; Pulse 97; Resp 18; Pulse Ox 99% on R/A; Pain 8/10; em 14:05 BP 121 / 83; Pulse 96; Resp 16; Temp 100.1(O); Pulse Ox 95% on R/A; Pain 5/10; em 15:05 BP 122 / 67; Pulse 79; Resp 16; Pulse Ox 95% on R/A; em 16:18 BP 116 / 81; Pulse 89; Resp 16; Pulse Ox 99% on R/A; Pain 5/10; em 17:10 BP 123 / 78; Pulse 81; Resp 16; Temp 98.4(O); Pulse Ox 97% on R/A; Pain 6/10; em 12:27 Body Mass Index 31.57 (99.79 kg, 177.80 cm) aa5 [place] Coma Score: 13:14 Eye Response: spontaneous(4). Verbal Response: oriented(5). Motor Response: obeys ma2 commands(6). Total: 15. MDM: 12:32 Patient medically screened. ma2 13:14 Differential diagnosis: cluster headache, hyponatremia, migraine, sinusitis, uremia. ma2 14:03 Data reviewed: vital signs, nurses notes, diagnostic data from outside facility. ma2 Counseling: I had a detailed discussion with the patient and/or guardian regarding: the historical points, exam findings, and any diagnostic results supporting the discharge/admit diagnosis, the presence of at least one elevated blood pressure reading (>120/80) during this emergency department visit, the need for further work-up and treatment in the hospital. Response to treatment: the patient's symptoms have markedly improved after treatment. ED course: patient needs syncope workup has the flu . 14:18 ED course: discussed with dr. kohler. [facility] 04/30 13:02 Order name: Flu; Complete Time: 14:02 wa2 04/30 13:02 Order name: Basic Metabolic Panel; Complete Time: 14:02 [facility] 04/30 13:02 Order name: CBC with Diff; Complete Time: 14:02 wa2 04/30 13:02 Order name: Ckmb; Complete Time: 14:02 wa2 04/30 13:02 Order name: CPK; Complete Time: 14:02 wa2 04/30 13:02 Order name: Hepatic Function; Complete Time: 14:02 wa2 04/30 13:02 Order name: CT Head Brain wo Cont; Complete Time: 13:37 wa2 04/30 13:02 Order name: Lipase; Complete Time: 14:02 wa2 04/30 13:02 Order name: Magnesium; Complete Time: 14:02 [facility] 04/30 13:02 Order name: Protime (+inr); Complete Time: 14:02 [facility] 04/30 13:02 Order name: Ptt, Activated; Complete Time: 14:02 ma2 04/30 13:02 Order name: Troponin (emerg Dept Use Only); Complete Time: 14:02 ma2 04/30 13:02 Order name: Chest Single View XRAY; Complete Time: 14:02 ma2 04/30 13:02 Order name: EKG; Complete Time: 13:03 ma2 04/30 13:02 Order name: Cardiac monitoring; Complete Time: 14:20 ma2 04/30 13:02 Order name: EKG - Nurse/Tech; Complete Time: 14:20 ma2 04/30 13:02 Order name: IV Saline Lock; Complete Time: 14:20 ma2 04/30 13:02 Order name: Labs collected and sent; Complete Time: 14:20 ma2 04/30 13:02 Order name: NPO; Complete Time: 14:20 ma2 04/30 13:02 Order name: O2 Per Protocol; Complete Time: 14:20 ma2 04/30 13:02 Order name: O2 Sat Monitoring; Complete Time: 14:20 ma2 04/30 13:02 Order name: Urine Dipstick-Ancillary (obtain specimen); Complete Time: 17:10 ma2 04/30 14:03 Order name: [place]; Complete Time: 14:03 em 04/30 15:57 Order name: Diet Heart Healthy; Complete Time: 15:57 em Administered Medications: 13:45 Drug: NS 0.9% 1000 ml Route: IV; Rate: 1 bolus; Site: right antecubital; em 15:40 Follow up: IV Status: Completed infusion; IV Intake: 1000ml em 13:50 Drug: TORadol 30 mg Route: IVP; Site: right antecubital; ss 15:39 Follow up: Response: No adverse reaction; Temperature is decreased em 13:50 Drug: Valium 10 mg Route: IVP; Site: right antecubital; ss 15:39 Follow up: Response: No adverse reaction; Pain is decreased em 14:10 Drug: Acetaminophen 1000 mg Route: PO; em 17:10 Follow up: Response: No adverse reaction; Temperature is decreased em 14:10 Drug: Tamiflu 75 mg Route: PO; em 15:39 Follow up: Response: No adverse reaction em Disposition: 12/24/18 14:18 Hospitalization ordered by Mary Kohler for Observation. Preliminary diagnosis is Influenza due to certain identified influenza viruses. - Bed requested for Telemetry/MedSurg (observation). - Status is Observation. ss - Condition is Stable. - Problem is new. - Symptoms are unchanged. UTI on Admission? No Signatures: Dispatcher [employer] EDNissa Murrieta RN RN dw Rakesh, Jamari, PATROL COMMANDER PATROL COMMANDER em Perla Felix, RN RN aa5 Jesica Del Valle RN RN ss Negar Cesar MD MD ma2 Corrections: (The following items were deleted from the chart) 17:03 14:18 Hospitalization Ordered by Mary Kohler MD for Observation. Preliminary diagnosis dw is Influenza due to certain identified influenza viruses. Bed requested for Telemetry/MedSurg (observation). Status is Observation. Condition is Stable. Problem is new. Symptoms are unchanged. UTI on Admission? No. ma2 18:10 17:03 04/30/2018 14:18 Hospitalization Ordered by Mary Kohler MD for Observation. ss Preliminary diagnosis is Influenza due to certain identified influenza viruses. Bed requested for Telemetry/MedSurg (observation). Status is Observation. Condition is Stable. Problem is new. Symptoms are unchanged. UTI on Admission? No. dw
[2018-04-30] MEDS ORDERED: OSELTAMIVIR 75 MG CAP ONE (14:21)
[2018-04-30] MEDS ORDERED: ACETAMINOPHEN 500 MG TAB ONE (14:21)
--- NOTE | 2018-04-30 14:45 | EKG ---
Test Date: 2018-04-30 Test Time: 13:37:31 After School Program Teacher: SAMEER MEASUREMENT RESULTS: Intervals: Rate: 93 DE: 166 QRSD: 72 QT: 352 QTc: 437 [place]: P: 20 DE: 166 QRS: 50 T: 22 INTERPRETIVE STATEMENTS: Sinus rhythm with premature atrial complexes Nonspecific T wave abnormality Abnormal ECG Compared to ECG 04/25/2018 13:14:20 Atrial premature complex(es) now present T-wave abnormality still present Electronically Signed On 04-30-18 14:44:05 JAVA SDET by Musa Wiggins
--- NOTE | 2018-04-30 19:59 | P.HP ---
Certification for Inpatient Patient admitted to: Observation With expected LOS: <2 Midnights Practitioner: I am a practitioner with admitting privileges, knowledge of patient current condition, hospital course, and medical plan of care. Services: Services provided to patient in accordance with Admission requirements found in Title 42 Section 412.3 of the Code of Federal Regulations Patient History Date of Service: 04/30/18 Reason for admission: influenza A infection History of Present Illness: Mr Gooden is a 58 years old male with history of HTN, CVA, who start feeling weak , dizzy, with stuffy nose, dry cough, SOB, sniffing and chills with sweating episodes about 2 days ago. Today, he said that he past out about 3 times. He was feeling worse, with generalized pain. At arrival he was febrile, 100.9F, O2 sat 94% on RA, lab work shows normal WBC count, slightly hypokalemic, CXR no acute abnormalities, he had a CT head which did not show acute abnormalities. Flu screening was positive for Influenza A. He has a friend who was feeling in the same way than him. Allergies No Known Allergies Allergy (Unverified 08/22/17 18:05) Home medications list reviewed: Yes Home Medications: Aspirin [Aspirin EC 81 MG] 81 mg PO DAILY #90 tablet. 01/10/18 Metoprolol Tartrate [Lopressor*] 25 mg PO BID 6AM 6PM #60 tab 01/10/18 Tamsulosin [Flomax*] 0.4 mg PO BEDTIME #30 cap 01/10/18 traMADol HCL [Ultram*] 50 mg PO TID PRN #10 tab 01/10/18 Amlodipine [Norvasc*] 10 mg PO DAILY #30 tab 01/12/18 Atorvastatin Calcium [Lipitor] 40 mg PO BEDTIME #30 tab 01/12/18 Lisinopril [Prinivil*] 20 mg PO BID #60 tab 01/12/18 - Past Medical/Surgical History Has patient received pneumonia vaccine in the past: No Diabetic: No -: Hypertension -: TIA -: UTI -: Urinary retention -: Ankle -: Tonsillectomy -: Eye surgery - Family History Mother -: Heart disease Father -: Liver disease - Social History Smoking Status: Never smoker Alcohol use: No CD- Drugs: No Caffeine use: No Place of Residence: Home Review of Systems 10-point ROS is otherwise unremarkable Physical Examination - Vital Signs Temperature: 98 F Blood Pressure: 118/71 Pulse: 81 Respirations: 81 Pulse Ox (%): 97 - Physical Exam General: Alert, Mild distress (due to generalized pain.) HEENT: Atraumatic, PERRLA, Mucous membr. moist/pink, EOMI, Sclerae nonicteric Neck: Supple, 2+ carotid pulse no bruit, No LAD, Without JVD or thyroid abnormality Respiratory: Clear to auscultation bilaterally, Normal air movement Cardiovascular: Regular rate/rhythm, Normal S1 S2 Gastrointestinal: Normal bowel sounds, No tenderness Musculoskeletal: No tenderness Integumentary: No rashes Neurological: Normal speech, Normal strength at 5/5 x4 extr, Normal tone, Normal affect Lymphatics: No axilla or inguinal lymphadenopathy - Studies Laboratory Data (last 24 hrs) 04/30/18 13:30: PT 14.4 H, INR 1.22, APTT 30.7 04/30/18 13:30: WBC 8.2 D, Hgb 14.6, Hct 41.9, Plt Count 152 D 04/30/18 13:30: Sodium 133 L, Potassium 3.4 L, BUN 14, Creatinine 1.05, Glucose 96, Magnesium 2.4, Total Bilirubin 0.7, AST 24, ALT 19, Alkaline Phosphatase 69 , Lipase 131 Microbiology Data (last 24 hrs): 04/30/18 13:30 Nasopharnyx Influenza Type A Antigen Screen - Final 04/30/18 13:30 Nasopharnyx Influenza Type B Antigen Screen - Final Assessment and Plan - Problems (Diagnosis) (1) Influenza A Current Visit: Yes Status: Acute (2) Syncope Current Visit: Yes Status: Acute Qualifiers: Syncope type: unspecified Qualified Code(s): R55 - Syncope and collapse (3) Hypertension Onset Date: 01/10/18 Current Visit: No Status: Acute Qualifiers: Hypertension type: essential hypertension Qualified Code(s): I10 - Essential (primary) hypertension - Plan The patient will be admitted to the hospital due to influenza A infection. Syncope episode in context of fever. CT head shows o acute abnormalities. He has received already 1 dose of Oseltamivir, and will continue this treatment. Also continue droplets and contact precautions. - Advance Directives Does patient have a Living Will: Yes Does patient have a Durable POA for Healthcare: No - Code Status/Comfort Care Code Status Assessed: Yes Code Status: Full Code
[2018-04-30] MEDS ORDERED: POTASSIUM CL SA 10 MEQ TAB PO ONE (21:00)
[2018-04-30] MEDS: ACETAMINOPHEN 500 MG TAB PO PRN (21:36)
[2018-04-30] MEDS: NA CHLORIDE 0.9% 1,000 ML IV SCH (21:37)
[2018-04-30] MEDS ORDERED: OSELTAMIVIR 75 MG CAP PO ONE (23:00)
[2018-05-01] MEDS ORDERED: ONDANSETRON HCL 40 MG/20 ML VIAL IV PRN (00:04)
[2018-05-01] MEDS: ACETAMINOPHEN 500 MG TAB PO PRN ×2 (04:31→14:47)
[2018-05-01] MEDS: NA CHLORIDE 0.9% 1,000 ML IV SCH ×2 (04:31→18:07)
[2018-05-01 06:09] LABS: Absolute Lymphocytes (CBC) 0.9 K/uL (0.7-4.9); Absolute Monocytes 0.8 K/uL (0.1-1.3); Basophils % 0.2 % (0-1.3); Lymphocytes % 13.1 % (15.3-44.8); MPV 9.3 fL (7.6-11.3); Monocytes % 12.3 % (3.3-12.3); RBC Red Blood Cell Count 4.43 M/uL (4.33-5.43)
[2018-05-01] MEDS: TRAMADOL HCL 50 MG TAB PO PRN ×3 (06:16→20:51)
[2018-05-01 06:28] LABS: ALT/SGPT 16 U/L (12-78); AST/SGOT 18 U/L (15-37); Albumin 2.7 g/dL (3.4-5.0); Alkaline Phosphatase 60 U/L (45-117); BUN Blood Urea Nitrogen 17 mg/dL (7-18); Bicarbonate 24 mmol/L (21-32); Bilirubin Total 0.5 mg/dL (0.2-1.0); Glucose Level 91 mg/dL (74-106); Magnesium 2.4 mg/dL (1.8-2.4); Phosphorus 2.3 mg/dL (2.5-4.9); Potassium 3.6 mmol/L (3.5-5.1); Protein, Total 5.9 g/dL (6.4-8.2); Sodium Level 138 mmol/L (136-145)
[2018-05-01 06:30] LABS: Urine Appearance CLEAR; Urine Bilirubin NEGATIVE (NEG); Urine Blood 1+ (NEG); Urine Color YELLOW; Urine Glucose NEGATIVE (NEG); Urine Protein TRACE (NEG)
[2018-05-01 06:33] LABS: Urine Microscopic Reflex ORDER UMIC
[2018-05-01 06:44] LABS: Urine Bacteria <20 /HPF (NONE SEEN); Urine Culture Reflex Order REFLEXED; Urine RBC <5 /HPF (NONE SEEN)
[2018-05-01] MEDS ORDERED: POTASSIUM PHOS IN 0.9 % NACL 15 MMOL/250 ML BAG IV ONE (07:00)
[2018-05-01] MEDS ORDERED: ONDANSETRON 4 MG/2 ML VIAL IV PRN (08:00)
[2018-05-01] MEDS ORDERED: POTASS/SODIUM PHOSPHATE 1 PKT POWD.PACK PO SCH (08:00)
[2018-05-01] MEDS: ENOXAPARIN 40 MG/0.4 ML SQ SCH (09:00)
[2018-05-01] MEDS: POTASS/SODIUM PHOSPHATE 1 PKT POWD.PACK PO SCH ×3 (09:00→10:00)
[2018-05-01] MEDS: OSELTAMIVIR 75 MG CAP PO SCH ×2 (09:13→20:49)
--- NOTE | 2018-05-01 13:59 | PN ---
Subjective: Currently, the patient is lying in bed. He is not feeling well. He has pain all over h is body. He continued to complain of some neck pain. He does not want to go home as he feels he is still weak. He had a low-grade temperature around 100.2 overnight. No nausea, no vomiting. There i s very poor appetite. He is not able to eat, saturating 94% on room air. Objective: Vital Signs: Blood pressure 155/91, respiratory rate 20, pulse 82, and temperature 98.1. General: He is alert and oriented x3, looks in mild distress. HEENT: Atraumatic and normocephalic. PERRLA. Oral mucosa is moist. Neck: Supple. No JVD. No bruits. Chest: Clear to auscultation. Good air entry. Heart: Regular rate and rhythm. S1 and S2 normal. No gallop or murmur. Abdomen: Soft, nontender. No masses. No hepatosplenomegaly. Positive bowel sounds. Extremities: No clubbing, cyanosis, or edema. No calf tenderness. Neurologic: Grossly intact. Cranial nerve exam 2 through 12 intact. Normal sensation. Normal refl exes. Normal muscle strength. Laboratory Data: Today showed CBC was normal, except for mild anemia of hemoglobin of 13.2. Supervisor Reclamation ry within normal, except for chloride 108, creatinine 0.8, phosphorus 2.3, serum albumin of 5.9. Flu was positive for type A. Assessment And Plan: 1.Type A of influenza. Continue the patient on Tamiflu 75 mg twice a day, started yesterday. 2.Syncopal episode. CT of head was negative. We will check echo and carotid Doppler to make sure t hey are normal to complete workup, most likely secondary to sickness. 3.History of benign prostatic hyperplasia, the patient has [place] and he is refusing to stop it. 4.Hypertension. We will resume his home medication with amlodipine, lisinopril, and metoprolol. 5.Benign prostatic hyperplasia. Continue on Flomax. 6.Hyperlipidemia. Continue on atorvastatin 40 mg once a day. 7.Deep venous thrombosis prophylaxis with Lovenox. We will start 40 mg once a day. Hopefully disch argbreana home in a.m. MAMTA/RENEE Voice ID: [id number] Report ID: [id number]
[2018-05-01] MEDS: ASPIRIN EC 81 MG TAB PO SCH (14:47)
[2018-05-01] MEDS: AMLODIPINE 10 MG TAB PO SCH (14:47)
[2018-05-01] MEDS: LISINOPRIL 20 MG TAB PO SCH ×2 (14:47→20:50)
[2018-05-01] MEDS: METOPROLOL TAR 25 MG TAB PO SCH (18:08)
[2018-05-01] MEDS ORDERED: TAMSULOSIN 0.4 MG SR CAP PO SCH (21:00)
[2018-05-01] MEDS ORDERED: ATORVASTATIN 40 MG TAB PO SCH (21:00)
--- NOTE | 2018-05-01 21:29 | RAD REPORT ---
EXAM DESCRIPTION: USCarotid Artery Hlcoezhmo40/25/2018 8:31 pm CLINICAL HISTORY: Syncope COMPARISON: None FINDINGS: The velocity of the right internal carotid artery equals 57 cm/sec. The right ICA/CCA rati o 0.7 The velocity of the left internal carotid artery equals 70 cm/sec. The left ICA/CCA ratio 0.8 Mild plaque is present within the carotid arteries. The vertebral arteries demonstrate antegrade flow IMPRESSION: Mild plaque within the carotid arteries without evidence of a hemodynamically significan t stenosis NASCET criteria used. Mild 0-49% stenosis Moderate 50-69% stenosis Severe 70-99% stenosis
[2018-05-02] MEDS: TRAMADOL HCL 50 MG TAB PO PRN (04:17)
[2018-05-02] MEDS: NA CHLORIDE 0.9% 1,000 ML IV SCH (04:17)
[2018-05-02 06:11] LABS: BUN Blood Urea Nitrogen 7 mg/dL (7-18); Bicarbonate 26 mmol/L (21-32); Glucose Level 80 mg/dL (74-106); Phosphorus 2.5 mg/dL (2.5-4.9); Potassium 3.5 mmol/L (3.5-5.1); Sodium Level 138 mmol/L (136-145)
[2018-05-02] MEDS ORDERED: POTASSIUM PHOS IN 0.9 % NACL 15 MMOL/250 ML BAG IV ONE (06:15)
[2018-05-02] MEDS: METOPROLOL TAR 25 MG TAB PO SCH (06:43)
[2018-05-02] MEDS: ENOXAPARIN 40 MG/0.4 ML SQ SCH (09:41)
[2018-05-02] MEDS: AMLODIPINE 10 MG TAB PO SCH (09:42)
[2018-05-02] MEDS: OSELTAMIVIR 75 MG CAP PO SCH (09:42)
[2018-05-02] MEDS: ASPIRIN EC 81 MG TAB PO SCH (09:42)
[2018-05-02] MEDS: LISINOPRIL 20 MG TAB PO SCH (09:42)
--- NOTE | 2018-05-03 05:55 | DS ---
Date of Discharge: 05/02/2018 Discharge Diagnoses: 1.Influenza A. 2.Syncopal episode. 3.Benign prostatic hyperplasia. 4.Hypertension. 5.Hyperlipidemia. Consult: None. Procedure: CT of the head done on was negative old lacunar infarct. History Of Present Illness: Please refer to admission note done by Dr. Kohler. Hospital Course: Initially patient presented with history of dry cough, shortness of breath, and simon ffy nose and significant chills for 2 days. found to have normal x-ray. Flu screen was p ositive for influenza A. The patient was started on Tamiflu. Patient reported a fall with a very br ief syncope, less than a second, in the bathroom. CAT scan of brain was negative. I ordered workup with echocardiogram and carotid Doppler but due to the holiday was not done yesterday and today patie nt is feeling much better and he says that he would like to go home and workup as outpatie nt, so I placed a clear instruction to discuss with primary care physician to order echo a nd carotid Doppler to make sure the syncopal episode was not related to carotid stenosis or cardiac d ysfunction which is very unlikely. The patient will continue Tamiflu for 4 more days. He will be di scharged today in stable condition. Discharge Condition: Stable. Discharged Diet: Cardiac. Discharge Followup: With primary care physician this week. Primary care physician to order echo and carotid Doppler and to continue workup for syncope as outpatient. Physical Examination: Discharge Vital Signs: Blood pressure is 128/76, respiratory rate 18, pulse 75, temperature __. General: Patient is alert and oriented x3. Does not look in any distress. HEENT: Atraumatic, normocephalic. PERRLA. Oral mucosa is moist. Neck: Supple. No JVD. No carotid bruits. Chest: Clear to auscultation. Good air entry. Heart: Regular rate and rhythm. S1 and S2 normal. No gallop or murmur. Abdomen: Soft, nontender. No masses. No hepatosplenomegaly. Positive bowel sounds. Extremities: No clubbing, cyanosis, or edema. No calf tenderness. Neurologic: Grossly intact. Cranial nerve exam 2 through 12 intact. Normal sensation. Normal refl exes. Normal muscle strength. Discharge Medications: Same as admission medications except Tamiflu, the only new pill that he will be going home 75 mg orally twice a day for 4 days. MAMTA/RENEE Voice ID: [id number] Report ID: [id number]
== END 2018-05-02 11:46 | disposition home or self-care (01) ==
LOC: ER 11:57 → ERHOLD 16:36 → 4TH 18:00
PROVIDERS: ADMIT Family Medicine; ATTEND Internal Medicine
DX: J09.X2 Influenza due to identified novel influenza A virus with other respiratory manifestations (principal); R55 Syncope and collapse; N40.0 Benign prostatic hyperplasia without lower urinary tract symptoms; I10 Essential (primary) hypertension; E78.5 Hyperlipidemia, unspecified; Z86.73 Personal history of transient ischemic attack (TIA), and cerebral infarction without residual deficits
CPT/HCPCS: 36415 ×2; 51702; 70450; 71045; 80048 ×2; 80053; 80076; 82550; 82553; 83690; 83735 ×2; 84100 ×2; 84484; 85025 ×2; 85610; 85730; 87086; 87088; 87804 ×2; 93005; 93880; 94760 ×3; 96361; 96374; 96375; 99285; G0378 ×2; J1650 ×2; J2405; J3360; J7030 ×5; 81003; 81015

== ENCOUNTER 2018-08-30 09:36 | Emergency (ER) | payer OTHER ==
[2018-08-30] MEDS ORDERED: FENTANYL CITR 100 MCG/2 ML ONE ×2 (10:31→11:28)
[2018-08-30] MEDS ORDERED: ONDANSETRON 4 MG/2 ML VIAL ONE (10:31)
[2018-08-30 10:45] LABS: Absolute Monocytes 0.4 K/uL (0.1-1.3); Absolute Neutrophil 4.3 K/uL (1.8-8.0); Basophils % 0.5 % (0-1.3); Eosinophils % 3.6 % (0-4.4); Hematocrit 45.9 % (39.6-49.0); Lymphocytes % 16.4 % (15.3-44.8); MPV 9.1 fL (7.6-11.3); Monocytes % 7.3 % (3.3-12.3); RBC Red Blood Cell Count 5.35 M/uL (4.33-5.43)
[2018-08-30 10:48] LABS: BUN Blood Urea Nitrogen 12 mg/dL (7-18); Bicarbonate 26 mmol/L (21-32); Glucose Level 95 mg/dL (74-106); Potassium 4.1 mmol/L (3.5-5.1); Sodium Level 143 mmol/L (136-145)
--- NOTE | 2018-08-30 11:26 | RAD REPORT ---
EXAM DESCRIPTION: CT - Chest Abdomen Pelvis W Cont - 08/30/2018 11:05 am CLINICAL HISTORY: Chest and abdomen pain. fall injury COMPARISON: No comparisons TECHNIQUE: Approximately 100 mL nonionic IV contrast was administered to the patient. All CT scans are performed using dose optimization technique as appropriate and may include automated exposure control or mA/KV adjustment according to patient size. FINDINGS: The lungs are diffusely emphysematous.No pleural or pericardial effusion.The ascending tho racic aorta demonstrates mild aneurysmal dilatation measure up to 4.7 cm.No intrathoracic adenopathy. Several small liver lesions are present most compatible with small benign cysts. No aggressive liver lesion or biliary dilatation. The spleen, pancreas, adrenal glands and kidneys are within normal limi ts. No bowel obstruction, free air, free fluid or abscess. Normal appendix. Sigmoid diverticulosis coli i s present without diverticulitis. No pathologic lymphadenopathy in the abdomen or pelvis. Cortical irregularity involving the posterior left ninth and tenth rib may represent nondisplaced fra cture. IMPRESSION: Subtle cortical irregularity of the posterior left ninth and tenth rib noted, which may represent nondisplaced fractures. Aneurysmal dilatation of the ascending thoracic aorta up to 4.7 cm noted.
--- NOTE | 2018-08-30 11:42 | ER ---
Nurse's Notes [facility] Name: Roman Gooden Age: 58 yrs Sex: Male : 1960 Arrival Date: 08/30/2018 Time: 09:38 Bed 5 Private MD: Diagnosis: Multiple fractures of ribs, left side;Aortic aneurysm of unspecified site, without rupture-ascending aorta Presentation: 08/30 09:48 Presenting complaint: Patient states: L lateral chest wall pain that began yesterday ss after falling from standing position onto a step. Care prior to arrival: None. Mechanism of Injury: Fall from standing position. Trauma event details: Injury occurred in the [facility], Injury occurred: at home. Injury occurred: August 29, 2018. 09:48 Method Of Arrival: Ambulatory ss 09:48 Acuity: DAVID 3 ss 09:52 Transition of care: patient was not received from another setting of care. Onset of ss symptoms was August 29, 2018 at 20:19. Risk Assessment: Do you want to hurt yourself or someone else? Patient reports no desire to harm self or others. Initial Sepsis Screen: Does the patient meet any 2 criteria? No. Patient's initial sepsis screen is negative. Does the patient have a suspected source of infection? No. Patient's initial sepsis screen is negative. Trauma Activation: Not Applicable Physician: ED Physician; Name: ; Notified At: ; Arrived At: Physician: General Surgeon; Name: ; Notified At: ; Arrived At: Physician: Radiology; Name: ; Notified At: ; Arrived At: Physician: Respiratory; Name: ; Notified At: ; Arrived At: Physician: Lab; Name: ; Notified At: ; Arrived At: Historical: - Allergies: :53 No Known Allergies; ss - Home Meds: :53 amitriptyline 10 mg Oral tab 1 tab once daily [Active]; atorvastatin 40 mg Oral tab 1 ss tab once daily [Active]; lisinopril 20 mg Oral tab 1 tab once daily [Active]; tamsulosin 0.4 mg Oral cp24 1 cap once daily [Active]; carvedilol 6.25 mg Oral tab 1 tab 2 times per day [Active]; amlodipine 10 mg tab 1 tab once daily [Active]; - PMHx: :53 Hypertension; TIA; UTI; ss - PSHx: 09:53 ankle surgery; Tonsillectomy; eye surgery; ss - Immunization history: Last tetanus immunization: - up to date. - Social history:: Smoking status: Patient/guardian denies using tobacco. - Ebola Screening: : Patient denies exposure to infectious person Patient denies travel to an Ebola-affected area in the 21 days before illness onset. Screenin:48 Abuse screen: Denies threats or abuse. Denies injuries from another. Tuberculosis ss screening: Never had TB. 10:15 Nutritional screening: No deficits noted. Fall Risk None identified. hb Primary Survey: 09:48 NO uncontrolled hemorrhage observed. A: The patient is alert. Airway: patent, No ss supplemental oxygen in use on arrival. Oral cavity: clear, Trachea midline. Breathing/Chest: Respiratory pattern: regular. Circulation: Pulses: palpable right radial artery and left radial artery. Skin color: pink, Skin temperature: warm. Disability Alert. Exposure/Environment: There is no evidence of uncontrolled external bleeding. 10:45 Reassessment Airway Airway Patent Breathing/Chest Respiratory pattern Regular hb Respiratory effort Spontaneous Unlabored Breath sounds Clear Chest inspection Symmetrical Circulation Pulses Palpable Disability Alert. 11:45 Reassessment Airway Airway Patent Breathing/Chest Respiratory pattern Regular hb Respiratory effort Spontaneous Unlabored Chest inspection Symmetrical Circulation Pulses Palpable Disability Alert. Secondary Survey: 10:00 HEENT: No deficits noted. Gastrointestinal: No deficits noted. : No signs and/or hb symptoms were reported regarding the genitourinary system. Musculoskeletal: Reports left flank pain. Assessment: 10:00 General: Appears in no apparent distress. Behavior is calm, cooperative. Pain: Pain hb currently is 9 out of 10 on a pain scale. Neuro: Level of Consciousness is awake, alert, obeys commands, Oriented to person, place, time, situation. EENT: No signs and/or symptoms were reported regarding the EENT system. Cardiovascular: Heart tones S1 S2 present Capillary refill < 3 seconds Patient's skin is warm and dry. Respiratory: Airway is patent Respiratory effort is even, unlabored, Respiratory pattern is regular, symmetrical, Breath sounds are clear bilaterally. GI: No signs and/or symptoms were reported involving the gastrointestinal system. : No signs and/or symptoms were reported regarding the genitourinary system. Derm: Skin is intact, is healthy with good turgor. Musculoskeletal: Reports left flank pain. 11:00 Reassessment: Patient appears in no apparent distress at this time. Patient and/or hb family updated on plan of care and expected duration. Pain level reassessed. Patient is alert, oriented x 3, equal unlabored respirations, skin warm/dry/pink. 11:54 Reassessment: Patient appears in no apparent distress at this time. No changes from hb previously documented assessment. Patient and/or family updated on plan of care and expected duration. Pain level reassessed. Patient is alert, oriented x 3, equal unlabored respirations, skin warm/dry/pink. Vital Signs: 09:48 BP 171 / 117; Pulse 90; Resp 20; Temp 98.6(TE); Pulse Ox 98% on R/A; Weight 97.98 kg; ss Height 5 ft. 10 in. (177.80 cm); Pain 9/10; 10:45 BP 170 / 90; Pulse 88; Resp 16; Pulse Ox 99% on R/A; hb 11:45 BP 168 / 88; Pulse 82; Resp 16; Pulse Ox 100% on R/A; hb 09:48 Body Mass Index 30.99 (97.98 kg, 177.80 cm) ss [place] Coma Score: 09:48 Eye Response: spontaneous(4). Verbal Response: oriented(5). Motor Response: obeys ss commands(6). Total: 15. Trauma Score (Adult): 09:48 Eye Response: spontaneous(1); Verbal Response: oriented(1); Motor Response: obeys ss commands(2); Systolic BP: > 89 mm Hg(4); Respiratory Rate: 10 to 29 per min(4); Yo Score: 15; Trauma Score: 12 10:45 Eye Response: spontaneous(1); Verbal Response: oriented(1); Motor Response: obeys hb commands(2); Systolic BP: > 89 mm Hg(4); Respiratory Rate: 10 to 29 per min(4); [place] Score: 15; Trauma Score: 12 11:45 Eye Response: spontaneous(1); Verbal Response: oriented(1); Motor Response: obeys hb commands(2); Systolic BP: > 89 mm Hg(4); Respiratory Rate: 10 to 29 per min(4); Yo Score: 15; Trauma Score: 12 ED Course: 09:38 Patient arrived in ED. rg4 09:48 Patient has correct armband on for positive identification. Bed in low position. Call ss light in reach. 09:48 Patient maintains SpO2 saturation greater than 95% on room air. ss 09:49 Triage completed. ss 09:53 Arm band placed on right wrist. ss 09:56 Celina Salazar, JAMES is Primary Nurse. hb 10:08 Mich Marrero PA is PHCP. jr8 10:08 Marvin Begum MD is Attending Physician. jr8 10:15 Thermoregulation: warm blanket given to patient. hb 10:59 CT completed. Patient tolerated procedure well. Patient moved to CT via stretcher. Patient moved back from CT. 11:06 CT Chest, Abdomen, Pelvis - W/Contrast In Process Unspecified. EDMS 11:40 Morgan Galeano MD is Referral Physician. jr8 12:02 No provider procedures requiring assistance completed. IV discontinued, intact, ss bleeding controlled, No redness/swelling at site. Pressure dressing applied. Administered Medications: 10:28 Drug: fentaNYL (PF) 75 mcg Route: IVP; Site: right antecubital; hb 11:20 Follow up: Response: No adverse reaction; Pain is decreased hb 10:29 Drug: Zofran 4 mg Route: IVP; Site: right antecubital; hb 11:20 Follow up: Response: No adverse reaction hb 11:28 Drug: fentaNYL (PF) 50 mcg Route: IVP; Site: right antecubital; hb 12:15 Follow up: Response: No adverse reaction; Pain is decreased hb Intake: 11:52 PO: 0ml; Total: 0ml. hb Output: 11:52 Urine: 0ml; Total: 0ml. hb Outcome: 11:41 Discharge ordered by . jr8 12:00 Patient's length of stay in the Emergency Department was greater than 2 hours. awaiting hb dispo by provider and transportation Patient's length of stay extended due to 12:02 Discharged to home ambulatory. 12:02 Condition: good 12:02 Discharge instructions given to patient, Instructed on discharge instructions, follow up and referral plans. medication usage, Demonstrated understanding of instructions, follow-up care, medications, Prescriptions given X 1. 12:03 Patient left the ED. Signatures: Dispatcher [employer] EDIN Kina Roberson Jesica Del Valle RN RN Mich Marrero PA PA jr8 Celina Salazar, RN RN Monica Oliver rg4 Corrections: (The following items were deleted from the chart) 09:48 Acuity: DAVID 4 ss ss
--- NOTE | 2018-08-30 11:42 | EDPHYS ---
Physician Documentation [facility] Name: Roman Gooden Age: 58 yrs Sex: Male : 1960 Arrival Date: 08/30/2018 Time: 09:38 Bed 5 Private MD: ED Physician Marvin Begum HPI: 08/30 10:24 This 58 yrs old Male presents to ER via Ambulatory with complaints of Fall jr8 Injury. 10:24 Details of fall: The patient fell from an upright position, while standing, while jr8 walking, and struck stairs. Onset: The symptoms/episode began/occurred acutely, yesterday. Associated injuries: The patient sustained injury to the chest, injury to the abdomen. Severity of symptoms: At their worst the symptoms were moderate, in the emergency department the symptoms are unchanged. The patient has not experienced similar symptoms in the past. The patient has not recently seen a physician. Slipped while going down stairs and hit left side on corner of stairs. Pain to left posterior and lateral chest wall along with flank and retroperitoneal region on left side . Historical: - Allergies: 09:53 No Known Allergies; ss - Home Meds: 09:53 amitriptyline 10 mg Oral tab 1 tab once daily [Active]; atorvastatin 40 mg Oral tab 1 ss tab once daily [Active]; lisinopril 20 mg Oral tab 1 tab once daily [Active]; tamsulosin 0.4 mg Oral cp24 1 cap once daily [Active]; carvedilol 6.25 mg Oral tab 1 tab 2 times per day [Active]; amlodipine 10 mg tab 1 tab once daily [Active]; - PMHx: 09:53 Hypertension; TIA; UTI; ss - PSHx: 09:53 ankle surgery; Tonsillectomy; eye surgery; ss - Immunization history: Last tetanus immunization: - up to date. - Social history:: Smoking status: Patient/guardian denies using tobacco. - Ebola Screening: : Patient denies exposure to infectious person Patient denies travel to an Ebola-affected area in the 21 days before illness onset. ROS: 10:24 Constitutional: Negative for fever, chills, and weight loss. jr8 10:24 Cardiovascular: Positive for chest pain, with movement. 10:24 Respiratory: Positive for shortness of breath, at rest. 10:24 Abdomen/GI: Positive for abdominal pain, Negative for nausea, vomiting, and diarrhea, hematemesis, black/tarry stool, rectal pain, rectal bleeding, bowel incontinence, flatulence. 10:24 Back: Positive for pain at rest, pain with movement, flank pain, on the left, of the left flank and left mid back. 10:24 All other systems are negative. Exam: 10:24 Head/Face: Normocephalic, atraumatic. Eyes: Pupils equal round and reactive to light, jr8 extra-ocular motions intact. Lids and lashes normal. Conjunctiva and sclera are non-icteric and not injected. Cornea within normal limits. Periorbital areas with no swelling, redness, or edema. ENT: Nares patent. No nasal discharge, no septal abnormalities noted. Tympanic membranes are normal and external auditory canals are clear. Oropharynx with no redness, swelling, or masses, exudates, or evidence of obstruction, uvula midline. Mucous membranes moist. Neck: Trachea midline, no thyromegaly or masses palpated, and no cervical lymphadenopathy. Supple, full range of motion without nuchal rigidity, or vertebral point tenderness. No Meningismus. Cardiovascular: Regular rate and rhythm with a normal S1 and S2. No gallops, murmurs, or rubs. Normal PMI, no JVD. No pulse deficits. Respiratory: Lungs have equal breath sounds bilaterally, clear to auscultation and percussion. No rales, rhonchi or wheezes noted. No increased work of breathing, no retractions or nasal flaring. Skin: Warm, dry with normal turgor. Normal color with no rashes, no lesions, and no evidence of cellulitis. MS/ Extremity: Pulses equal, no cyanosis. Neurovascular intact. Full, normal range of motion. Neuro: Awake and alert, GCS 15, oriented to person, place, time, and situation. Cranial nerves II-XII grossly intact. Motor strength 5/5 in all extremities. Sensory grossly intact. Cerebellar exam normal. Normal gait. 10:24 Chest/axilla: Inspection: normal, Palpation: tenderness, that is moderate, of the left lateral posterior chest. 10:24 Abdomen/GI: Inspection: abdomen appears normal, Palpation: soft, in all quadrants, moderate abdominal tenderness, in the anterior aspect of left lateral abdomen and posterior aspect of left lateral abdomen, mass, is not appreciated, rebound tenderness, is not appreciated, voluntary guarding, is not appreciated, involuntary guarding, is not appreciated, no appreciated organomegaly. 10:24 Back: pain, that is moderate, of the left flank and left mid back, ROM is painful, normal spinal alignment noted, CVA tenderness, that is mild, is noted on the left, vertebral tenderness, is not appreciated. Vital Signs: 09:48 BP 171 / 117; Pulse 90; Resp 20; Temp 98.6(TE); Pulse Ox 98% on R/A; Weight 97.98 kg; ss Height 5 ft. 10 in. (177.80 cm); Pain 9/10; 10:45 BP 170 / 90; Pulse 88; Resp 16; Pulse Ox 99% on R/A; hb 11:45 BP 168 / 88; Pulse 82; Resp 16; Pulse Ox 100% on R/A; hb 09:48 Body Mass Index 30.99 (97.98 kg, 177.80 cm) ss Yo Coma Score: 09:48 Eye Response: spontaneous(4). Verbal Response: oriented(5). Motor Response: obeys ss commands(6). Total: 15. Trauma Score (Adult): 09:48 Eye Response: spontaneous(1); Verbal Response: oriented(1); Motor Response: obeys ss commands(2); Systolic BP: > 89 mm Hg(4); Respiratory Rate: 10 to 29 per min(4); Yo Score: 15; Trauma Score: 12 10:45 Eye Response: spontaneous(1); Verbal Response: oriented(1); Motor Response: obeys hb commands(2); Systolic BP: > 89 mm Hg(4); Respiratory Rate: 10 to 29 per min(4); Yo Score: 15; Trauma Score: 12 11:45 Eye Response: spontaneous(1); Verbal Response: oriented(1); Motor Response: obeys hb commands(2); Systolic BP: > 89 mm Hg(4); Respiratory Rate: 10 to 29 per min(4); Yo Score: 15; Trauma Score: 12 MDM: 10:09 Patient medically screened. [facility] 11:36 Data reviewed: vital signs, nurses notes, lab test result(s), radiologic studies, CT jr8 scan. Data interpreted: Pulse oximetry: on room air is 98 %. Interpretation: normal. Counseling: I had a detailed discussion with the patient and/or guardian regarding: the historical points, exam findings, and any diagnostic results supporting the discharge/admit diagnosis, lab results, radiology results, the need for outpatient follow up, a youth probation officer, a family practitioner, to return to the emergency department if symptoms worsen or persist or if there are any questions or concerns that arise at home. Special discussion: I discussed with the patient the need to follow-up with the PCP/specialist for the noted incidental finding on X-ray/CT scanning. Based on the history and exam findings, there is no indication for further emergent testing or inpatient evaluation. I discussed with the patient/guardian the need to see the youth probation officer for further evaluation of the symptoms. ED course: Discussed with patient mild non displaced broken ribs noted on left side. No other internal injuries. Subsequent finding of mild dilated ascending aorta. Needs f/u and routine evaluation to assess stability of aneurysm. Patient understands and will f/u . 08/30 10:17 Order name: CBC with Diff; Complete Time: 10:55 8 08/30 10:17 Order name: Basic Metabolic Panel; Complete Time: 10:55 8 08/30 10:17 Order name: CT Chest, Abdomen, Pelvis - W/Contrast; Complete Time: 11:28 8 08/30 10:17 Order name: IV; Complete Time: 10:29 Administered Medications: 10:28 Drug: fentaNYL (PF) 75 mcg Route: IVP; Site: right antecubital; hb 11:20 Follow up: Response: No adverse reaction; Pain is decreased hb 10:29 Drug: Zofran 4 mg Route: IVP; Site: right antecubital; hb 11:20 Follow up: Response: No adverse reaction hb 11:28 Drug: fentaNYL (PF) 50 mcg Route: IVP; Site: right antecubital; hb 12:15 Follow up: Response: No adverse reaction; Pain is decreased hb Disposition: 08/30/18 11:41 Discharged to Home. Impression: Multiple fractures of ribs, left side, Aortic aneurysm of unspecified site, without rupture - ascending aorta. - Condition is Stable. - Discharge Instructions: Thoracic Aortic Aneurysm, Rib Fracture. - Prescriptions for Tylenol- Codeine #3 300-30 mg Oral Tablet - take 2 tablets by ORAL route every 6 hours As needed; 12 tablet. - Medication Reconciliation Form, Thank You Letter, Antibiotic Education, Prescription Opioid Use form. - Follow up: Morgan Galeano MD; When: 2 - 3 days; Reason: Recheck today's complaints, Continuance of care, Re-evaluation by your physician. - Problem is new. - Symptoms have improved. Addendum: 09/04/2018 10:36 Co-signature as Attending Physician, Marvin Begum MD I agree with the assessment and k dr plan of care. Signatures: Dispatcher [employer] EDMS Marvin Begum MD MD [facility] Jesica Del Valle RN RN Mich Marrero, PA PA jr8 Celina Salazar RN RN Corrections: (The following items were deleted from the chart) 08/30 10:29 10:24 Back: Positive for pain at rest, pain with movement, flank pain, on the left, of jr8 the right flank and right mid back, jr8 12:03 11:41 08/30/2018 11:41 Discharged to Home. Impression: Multiple fractures of ribs, left ss side; Aortic aneurysm of unspecified site, without rupture - ascending aorta. Condition is Stable. Forms are Medication Reconciliation Form, Thank You Letter, Antibiotic Education, Prescription Opioid Use. Follow up: Morgan Galeano; When: 2 - 3 days; Reason: Recheck today's complaints, Continuance of care, Re-evaluation by your physician. Problem is new. Symptoms have improved. jr8
== END 2018-08-30 12:03 | disposition home or self-care (01) ==
LOC: ER 09:36
DX: S22.42XA Multiple fractures of ribs, left side, initial encounter for closed fracture (principal); W10.9XXA Fall (on) (from) unspecified stairs and steps, initial encounter; I71.2 Thoracic aortic aneurysm, without rupture; I10 Essential (primary) hypertension
CPT/HCPCS: 85025; 80048; 36415; 71260; 74177; 96375; 96374; 99284; Q9967; J3010 ×2; J2405

== ENCOUNTER 2018-10-13 14:01 | Emergency (ER) | payer OTHER ==
[2018-10-13 14:28] LABS: Absolute Lymphocytes (CBC) 1.2 K/uL (0.7-4.9); Absolute Monocytes 0.7 K/uL (0.1-1.3); Absolute Neutrophil 5.9 K/uL (1.8-8.0); Basophils % 0.6 % (0-1.3); Eosinophils % 1.1 % (0-4.4); Hematocrit 45.8 % (39.6-49.0); Lymphocytes % 14.7 % (15.3-44.8); MPV 8.8 fL (7.6-11.3); Monocytes % 8.8 % (3.3-12.3)
[2018-10-13 14:33] LABS: Protime INR 1.09
[2018-10-13] MEDS ORDERED: NA CHLORIDE 0.9% 1,000 ML ONE (14:44)
[2018-10-13 14:51] LABS: ALT/SGPT 21 U/L (12-78); AST/SGOT 16 U/L (15-37); Albumin 3.5 g/dL (3.4-5.0); Alkaline Phosphatase 83 U/L (45-117); BUN Blood Urea Nitrogen 16 mg/dL (7-18); Bicarbonate 21 mmol/L (21-32); Bilirubin Direct 0.2 mg/dL (0-0.2); Bilirubin Total 1.3 mg/dL (0.2-1.0); Glucose Level 98 mg/dL (74-106); Magnesium 2.3 mg/dL (1.8-2.4); NT PRO-BNP 393 pg/mL (<125); Potassium 3.7 mmol/L (3.5-5.1); Protein, Total 7.1 g/dL (6.4-8.2); Sodium Level 144 mmol/L (136-145); Troponin (Emerg Dept Use Only) < 0.02 ng/mL (0.0-0.045)
[2018-10-13] MEDS ORDERED: ONDANSETRON 4 MG/2 ML VIAL ONE (15:12)
[2018-10-13] MEDS ORDERED: MORPHINE 4 MG/ML SYR ONE (15:12)
--- NOTE | 2018-10-13 15:51 | RAD REPORT ---
EXAM DESCRIPTION: CT - Angio Aorta For Dissection - 10/13/2018 3:26 pm CLINICAL HISTORY: . Chest and abd pain COMPARISON: August 2018 TECHNIQUE: Computed tomography angiography of the chest, abdomen pelvis were obtained. 100 cc Isovue 370 was administered intravenously. Coronal and sagittal reconstruction were performed. MIP 3D reconstruction was performed All CT scans are performed using dose optimization technique as appropriate and may include automated exposure control or mA/KV adjustment according to patient size. FINDINGS: An aortic dissection is not seen. Proximal thoracic aorta has an AP diameter of 4.7 centi meters. The celiac, SMA and JIM are patent . A lung consolidation is not present. A pericardial effusion is not seen. A pleural effusion is not n oted. Paraseptal emphysema The liver,spleen, pancreas adrenals kidneys demonstrate no acute abnormality. The appendix is normal. There no evidence diverticulitis. No ascites is noted. Marked prostatic enlargement. Small inguinal hernias containing fat IMPRESSION: Negative for an aortic dissection. Proximal thoracic aortic aneurysm unchanged from the prior exam. AP diameter 4.7 centimeters
--- NOTE | 2018-10-13 15:52 | RAD REPORT ---
EXAM DESCRIPTION: Jose Single View10/13/2018 2:41 pm CLINICAL HISTORY: Chest pain COMPARISON: August 2018 FINDINGS: Lungs are hyperaerated. The lungs appear clear of acute infiltrate. The heart is normal size IMPRESSION: Moderate COPD without visualization of an acute abnormality
[2018-10-13] MEDS ORDERED: NA CHLORIDE 0.9% 500 ML ONE (18:05)
[2018-10-13] MEDS ORDERED: KETOROLAC 30 MG/ML INJ ONE (18:05)
[2018-10-13] MEDS ORDERED: CARVEDILOL 6.25 MG TAB ONE (18:42)
--- NOTE | 2018-10-13 18:42 | ER ---
Nurse's Notes [facility] Name: Roman Gooden Age: 58 yrs Sex: Male : 1960 Arrival Date: 10/13/2018 Time: 14:09 Bed 5 Private MD: Diagnosis: Chest pain, unspecified;Exposure to excessive natural heat Presentation: 10/13 14:14 Presenting complaint: Patient states: Patient states he was working in his attic moving hb boxes for about 45 minutes where it was very hot when he had sudden back back that radiated to his right arm and left shoulder blade. Transition of care: patient was not received from another setting of care. Onset of symptoms was October 13, 2018 at 13:00. Risk Assessment: Do you want to hurt yourself or someone else? Patient reports no desire to harm self or others. Initial Sepsis Screen: Does the patient meet any 2 criteria? HR > 90 bpm. No. Patient's initial sepsis screen is negative. Does the patient have a suspected source of infection? No. Patient's initial sepsis screen is negative. Care prior to arrival: two IV attempts to the left AC, EMS states "they both infiltrated". 14:14 Method Of Arrival: EMS: [facility] 14:14 Acuity: DAVID 2 hb Triage Assessment: 14:11 General: Appears uncomfortable, Behavior is cooperative, anxious. Pain: Complains of hb pain in right scapular area and right subscapular area Pain radiates to left arm Pain currently is 8 out of 10 on a pain scale. Quality of pain is described as "stretched" and "twisted". Neuro: Level of Consciousness is awake, alert, obeys commands, Oriented to person, place, time, situation. Cardiovascular: Rhythm is regular. Respiratory: Airway is patent Respiratory effort is even, unlabored, Respiratory pattern is regular, symmetrical. Derm: Skin is diaphoretic, Skin is pink, Skin temperature is warm. 14:11 EENT: No signs and/or symptoms were reported regarding the EENT system. wears glasses.. ae4 GI: Bowel sounds present X 4 quads. Reports nausea. : No signs and/or symptoms were reported regarding the genitourinary system. Musculoskeletal: No signs and/or symptoms reported regarding the musculoskeletal system. Historical: - Allergies: 14:26 No Known Allergies; hb - Home Meds: 14:40 amitriptyline 10 mg Oral tab 1 tab once daily [Active]; amlodipine 10 mg tab 1 tab once hb daily [Active]; atorvastatin 40 mg Oral tab 1 tab once daily [Active]; carvedilol 6.25 mg Oral tab 1 tab 2 times per day [Active]; lisinopril 20 mg Oral tab 1 tab once daily [Active]; tamsulosin 0.4 mg Oral cp24 1 cap once daily [Active]; - PMHx: 14:25 Hypertension; TIA; UTI; Patient was recently told her has a "aortic anyeurysm but they hb don't know where exactly it is. "; 14:40 enlarged prostate; hb - Immunization history:: Adult Immunizations unknown. - Social history:: Smoking status: Patient/guardian denies using tobacco. - Ebola Screening: : Patient negative for fever greater than or equal to 101.5 degrees Fahrenheit, and additional compatible Ebola Virus Disease symptoms Patient denies exposure to infectious person Patient denies travel to an Ebola-affected area in the 21 days before illness onset. Screenin:41 Abuse screen: Denies threats or abuse. Nutritional screening: No deficits noted. hb Tuberculosis screening: No symptoms or risk factors identified. Fall Risk None identified. 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 hb 15:44 General: Report and hand off care given to JAMES Avalos. ae4 15:52 General: Appears in no apparent distress. comfortable, Behavior is calm, cooperative. rv Pain: Complains of pain in back. Neuro: Level of Consciousness is awake, alert, obeys commands, Oriented to person, place, time, situation. Cardiovascular: Patient's skin is warm and dry. Respiratory: Airway is patent. GI: No signs and/or symptoms were reported involving the gastrointestinal system. : No signs and/or symptoms were reported regarding the genitourinary system. EENT: No signs and/or symptoms were reported regarding the EENT system. Derm: Skin is intact. Musculoskeletal: Reports pain in back. 17:00 Reassessment: Patient appears in no apparent distress at this time. No changes from previously documented assessment. Patient and/or family updated on plan of care and expected duration. Pain level reassessed. Patient is alert, oriented x 3, equal unlabored respirations, skin warm/dry/pink. 18:14 Reassessment: Patient appears in no apparent distress at this time. No changes from rv previously documented assessment. Patient and/or family updated on plan of care and expected duration. Pain level reassessed. Patient is alert, oriented x 3, equal unlabored respirations, skin warm/dry/pink. 18:33 Reassessment: blood pressure is still elevated after an hour. referred to JUANY Mac. rv patient does not take his pills for a long time. given carvedilol 6.25mg tab. Vital Signs: 14:11 BP 158 / 103 LA Sitting (auto/reg); Pulse 95; Resp 17; Temp 98.3(O); Pulse Ox 96% on hb R/A; Weight 97.98 kg (R); Pain 8/10; 14:22 BP 147 / 90 LA Sitting (auto/reg); Pulse 99; Resp 19; Pulse Ox 96% on R/A; hb 14:27 BP 124 / 82 RA Sitting (auto/reg); Pulse 100; Resp 18; Pulse Ox 96% on R/A; hb 14:29 BP 142 / 111 LA Sitting (auto/reg); Pulse 88; Resp 17; Pulse Ox 96% on R/A; hb 15:55 BP 148 / 102; Pulse 76; Resp 20; Pulse Ox 94% ; rv 17:00 BP 140 / 87; Pulse 66; Resp 16; Pulse Ox 96% ; rv 17:30 BP 198 / 96; Pulse 81; Resp 16; Pulse Ox 99% ; rv 18:00 BP 184 / 109; Pulse 67; Resp 15; Pulse Ox 99% ; rv 19:00 BP 170 / 112 LA (auto/lg); Pulse 90; Temp 97.9(O); Pulse Ox 97% ; jp3 ED Course: 14:09 Patient arrived in ED. ss 14:09 Samra Dougherty FNP-C [facility]. kb 14:09 Clive Santa MD is Attending Physician. kb 14:10 Celina Salazar, JAMES is Primary Nurse. hb 14:17 Triage completed. hb 14:22 Arm band placed on right wrist. hb 14:23 Inserted saline lock: 20 gauge in right antecubital area, using aseptic technique. ss Blood collected. 14:25 EKG done, by ED staff, reviewed by Samra LUIS. jp3 14:26 Patient has correct armband on for positive identification. Placed in gown. Bed in low hb position. Call light in reach. Side rails up X 1. software development leader on. Pulse ox on. NIBP on. 14:42 XRAY Chest (1 view) In Process Unspecified. EDMS 15:26 CT completed. Patient tolerated procedure well. Patient moved back from CT. ls3 15:28 CT Aorta for Dissection In Process Unspecified. EDMS 15:32 Isaac Moran, RN is Primary Nurse. rv 17:32 PHCP role handed off by Samra Dougherty FNP-C snw 17:32 Estefania Conti FNP-C is PHCP. snw 18:05 Troponin (emerg Dept Use Only) Sent. jp3 18:05 Repeat lab(s) drawn. by me, sent to lab. jp3 18:15 EKG done, by ED staff, reviewed by Estefania LUIS. jp3 19:16 No provider procedures requiring assistance completed. IV discontinued, intact, rv bleeding controlled, No redness/swelling at site. Pressure dressing applied. Administered Medications: 14:30 Drug: NS 0.9% 1000 ml Route: IV; Rate: 1000 ml; Site: right antecubital; hb 18:13 Follow up: IV Status: Completed infusion; IV Intake: 1000ml rv 14:55 Drug: morphine 4 mg Route: IVP; Site: right antecubital; rv 18:13 Follow up: Response: Pain is unchanged, physician notified rv 14:55 Drug: Zofran 4 mg Route: IVP; Site: right antecubital; rv 18:13 Follow up: Response: No adverse reaction rv 18:03 Drug: NS 0.9% 500 ml Route: IV; Rate: bolus; Site: right antecubital; rv 19:15 Follow up: IV Status: Completed infusion; IV Intake: 500ml rv 18:03 Drug: TORadol 30 mg Route: IVP; Site: right antecubital; rv 19:15 Follow up: Response: Marked relief of symptoms rv 18:32 Drug: carvedilol 6.25 mg Route: PO; rv 19:15 Follow up: Response: Blood pressure is lowered rv Intake: 18:13 IV: 1000ml; Total: 1000ml. rv 19:15 IV: 500ml; Total: 1500ml. rv Outcome: 18:42 Discharge ordered by MD. renee 19:17 Discharged to home ambulatory. rv 19:17 Condition: improved 19:17 Discharge instructions given to patient, Instructed on discharge instructions, follow up and referral plans. Demonstrated understanding of instructions, follow-up care. 19:18 Patient left the ED. rv Signatures: Dispatcher [employer] EDMS Samra Dougherty, ACTIVITIES MANAGER-C ACTIVITIES MANAGER-Ckb Estefania Conti, ACTIVITIES MANAGER-C ACTIVITIES MANAGER-Csnw Jesica Del Valle, JAMES RN ss Celina Salazar RN RN hb Isaac Moran RN RN rv King Ochoa jp3 Yohannes Oconnell3 Hcetor Gant RN RN ae4 Corrections: (The following items were deleted from the chart) 14:17 14:11 BP 158 / 103; Pulse 95bpm; Resp 17bpm; Pulse Ox 96% RA; Temp 98.3F Oral; 97.98 kg hb Reported; Pain 8/10; hb 14:38 12:27 BP 124 / 82 Sitting Auto R Arm Regular; Pulse 100bpm; Resp 18bpm; Pulse Ox 96% hb RA; hb
--- NOTE | 2018-10-13 18:42 | EDPHYS ---
Physician Documentation [facility] Name: Roman Gooden Age: 58 yrs Sex: Male : 1960 Arrival Date: 10/13/2018 Time: 14:09 Bed 5 Private MD: ED Physician Clive Santa HPI: 10/13 16:16 This 58 yrs old Male presents to ER via EMS with complaints of Heat Exposure, kb Chest Pain > 30 y/o. 16:17 The patient or guardian reports chest pain that is located primarily in the anterior kb chest wall, left. Onset: just prior to arrival. The pain does not radiate. Associated signs and symptoms: Pertinent positives: diaphoresis, lightheadedness, near-syncope. The chest pain is described as aching. Duration: The patient or guardian reports a single episode. Modifying factors: The symptoms are alleviated by nothing. the symptoms are aggravated by nothing. Severity of pain: At its worst the pain was moderate in the emergency department the pain is unchanged. The patient has not experienced similar symptoms in the past. The patient has not recently seen a physician. Pt states he was up in the attic moving boxes and got overheated. States he felt like he was going to pass out, got dizzy and lightheaded and started having left lateral chest pain. STates he has had this pain for a while because he recently broke his ribs on that side. . Historical: - Allergies: 14:26 No Known Allergies; hb - Home Meds: 14:40 amitriptyline 10 mg Oral tab 1 tab once daily [Active]; amlodipine 10 mg tab 1 tab once hb daily [Active]; atorvastatin 40 mg Oral tab 1 tab once daily [Active]; carvedilol 6.25 mg Oral tab 1 tab 2 times per day [Active]; lisinopril 20 mg Oral tab 1 tab once daily [Active]; tamsulosin 0.4 mg Oral cp24 1 cap once daily [Active]; - PMHx: 14:25 Hypertension; TIA; UTI; Patient was recently told her has a "aortic anyeurysm but they hb don't know where exactly it is. "; 14:40 enlarged prostate; hb - Immunization history:: Adult Immunizations unknown. - Social history:: Smoking status: Patient/guardian denies using tobacco. - Ebola Screening: : Patient negative for fever greater than or equal to 101.5 degrees Fahrenheit, and additional compatible Ebola Virus Disease symptoms Patient denies exposure to infectious person Patient denies travel to an Ebola-affected area in the 21 days before illness onset. ROS: 16:17 Constitutional: Negative for fever, chills, and weight loss, ENT: Negative for injury, kb pain, and discharge, Neck: Negative for injury, pain, and swelling, Respiratory: Negative for shortness of breath, cough, wheezing, and pleuritic chest pain, Abdomen/GI: Negative for abdominal pain, nausea, vomiting, diarrhea, and constipation, Back: Negative for injury and pain, : Negative for injury, bleeding, discharge, and swelling, MS/Extremity: Negative for injury and deformity, Skin: Negative for injury, rash, and discoloration. 16:17 Cardiovascular: Positive for chest pain, Negative for edema, orthopnea, palpitations, paroxysmal nocturnal dyspnea. 16:17 Neuro: Positive for dizziness, near syncope. Exam: 16:17 Constitutional: This is a well developed, well nourished patient who is awake, alert, kb and in no acute distress. Head/Face: Normocephalic, atraumatic. ENT: Nares patent. No nasal discharge, no septal abnormalities noted. Tympanic membranes are normal and external auditory canals are clear. Oropharynx with no redness, swelling, or masses, exudates, or evidence of obstruction, uvula midline. Mucous membranes moist. Neck: Trachea midline, no thyromegaly or masses palpated, and no cervical lymphadenopathy. Supple, full range of motion without nuchal rigidity, or vertebral point tenderness. No Meningismus. Chest/axilla: Normal chest wall appearance and motion. Nontender with no deformity. No lesions are appreciated. Cardiovascular: Regular rate and rhythm with a normal S1 and S2. No gallops, murmurs, or rubs. Normal PMI, no JVD. No pulse deficits. Respiratory: Lungs have equal breath sounds bilaterally, clear to auscultation and percussion. No rales, rhonchi or wheezes noted. No increased work of breathing, no retractions or nasal flaring. Abdomen/GI: Soft, non-tender, with normal bowel sounds. No distension or tympany. No guarding or rebound. No evidence of tenderness throughout. Skin: Warm, dry with normal turgor. Normal color with no rashes, no lesions, and no evidence of cellulitis. MS/ Extremity: Pulses equal, no cyanosis. Neurovascular intact. Full, normal range of motion. Neuro: Awake and alert, GCS 15, oriented to person, place, time, and situation. Cranial nerves II-XII grossly intact. Motor strength 5/5 in all extremities. Sensory grossly intact. Cerebellar exam normal. Normal gait. Vital Signs: 14:11 BP 158 / 103 LA Sitting (auto/reg); Pulse 95; Resp 17; Temp 98.3(O); Pulse Ox 96% on hb R/A; Weight 97.98 kg (R); Pain 8/10; 14:22 BP 147 / 90 LA Sitting (auto/reg); Pulse 99; Resp 19; Pulse Ox 96% on R/A; hb 14:27 BP 124 / 82 RA Sitting (auto/reg); Pulse 100; Resp 18; Pulse Ox 96% on R/A; hb 14:29 BP 142 / 111 LA Sitting (auto/reg); Pulse 88; Resp 17; Pulse Ox 96% on R/A; hb 15:55 BP 148 / 102; Pulse 76; Resp 20; Pulse Ox 94% ; rv 17:00 BP 140 / 87; Pulse 66; Resp 16; Pulse Ox 96% ; rv 17:30 BP 198 / 96; Pulse 81; Resp 16; Pulse Ox 99% ; rv 18:00 BP 184 / 109; Pulse 67; Resp 15; Pulse Ox 99% ; rv 19:00 BP 170 / 112 LA (auto/lg); Pulse 90; Temp 97.9(O); Pulse Ox 97% ; jp3 MDM: 14:10 Patient medically screened. kb 16:20 Data reviewed: vital signs, nurses notes. Data interpreted: Pulse oximetry: on room air kb is 94 %. Interpretation: normal. 17:00 Counseling: I had a detailed discussion with the patient and/or guardian regarding: the kb historical points, exam findings, and any diagnostic results supporting the discharge/admit diagnosis, lab results, radiology results, the need for outpatient follow up, a family practitioner, to return to the emergency department if symptoms worsen or persist or if there are any questions or concerns that arise at home. 18:42 Special discussion: I have referred the patient to see his PCP for further evaluation snw of high blood pressure. Based on the history and exam findings, there is no indication for further emergent testing or inpatient evaluation. I discussed with the patient/guardian the need to see the employee benefits manager for further evaluation of the symptoms. I discussed with the patient/guardian the need to see the primary care provider for further evaluation of the symptoms. pt has not been taking his medications for "unknown" reason, encouraged to take medications as directed. 10/13 14:11 Order name: Basic Metabolic Panel; Complete Time: 14:58 kb 10/13 14:11 Order name: CBC with Diff; Complete Time: 14:34 kb 10/13 14:11 Order name: LFT's; Complete Time: 14:58 kb 10/13 14:11 Order name: Magnesium; Complete Time: 14:58 kb 10/13 14:11 Order name: NT PRO-BNP; Complete Time: 14:58 kb 10/13 14:11 Order name: PT-INR; Complete Time: 14:34 kb 10/13 14:11 Order name: Troponin (emerg Dept Use Only); Complete Time: 14:58 kb 10/13 14:11 Order name: XRAY Chest (1 view); Complete Time: 16:01 kb 10/13 14:11 Order name: CPK; Complete Time: 14:50 kb 10/13 14:59 Order name: CT Aorta for Dissection; Complete Time: 16:01 kb 10/13 17:56 Order name: Troponin (emerg Dept Use Only); Complete Time: 18:40 la1 10/13 14:11 Order name: EKG; Complete Time: 14:14 kb 10/13 14:11 Order name: Cardiac monitoring; Complete Time: 14:25 kb 10/13 14:11 Order name: EKG - Nurse/Tech; Complete Time: 14:25 kb 10/13 14:11 Order name: IV Saline Lock; Complete Time: 14:25 kb 10/13 14:11 Order name: Labs collected and sent; Complete Time: 14:25 kb 10/13 14:11 Order name: O2 Per Protocol; Complete Time: 14:26 kb 10/13 14:11 Order name: O2 Sat Monitoring; Complete Time: 14:26 kb Administered Medications: 14:30 Drug: NS 0.9% 1000 ml Route: IV; Rate: 1000 ml; Site: right antecubital; hb 18:13 Follow up: IV Status: Completed infusion; IV Intake: 1000ml rv 14:55 Drug: morphine 4 mg Route: IVP; Site: right antecubital; rv 18:13 Follow up: Response: Pain is unchanged, physician notified rv 14:55 Drug: Zofran 4 mg Route: IVP; Site: right antecubital; rv 18:13 Follow up: Response: No adverse reaction rv 18:03 Drug: NS 0.9% 500 ml Route: IV; Rate: bolus; Site: right antecubital; rv 19:15 Follow up: IV Status: Completed infusion; IV Intake: 500ml rv 18:03 Drug: TORadol 30 mg Route: IVP; Site: right antecubital; rv 19:15 Follow up: Response: Marked relief of symptoms rv 18:32 Drug: carvedilol 6.25 mg Route: PO; rv 19:15 Follow up: Response: Blood pressure is lowered rv Disposition: 10/14 07:03 Co-signature as Attending Physician, Clive Santa MD. rn Disposition: 10/13/18 18:42 Discharged to Home. Impression: Chest pain, unspecified, Exposure to excessive natural heat. - Condition is Stable. - Discharge Instructions: Nonspecific Chest Pain, [id number], Heat Exhaustion Information, Hypertension. - Work release form, Medication Reconciliation Form, Thank You Letter, Antibiotic Education, Prescription Opioid Use form. - Follow up: Emergency Department; When: As needed; Reason: Worsening of condition. Follow up: Private Physician; When: 2 - 3 days; Reason: Recheck today's complaints, Continuance of care, Re-evaluation by your physician. Signatures: Dispatcher [employer] EDDC Samra Dougherty, TEA PLANTATION WORKER-C TEA PLANTATION WORKER-Ckb Estefania Conti FNP-C TEA PLANTATION WORKER-CsnClive Randolph MD MD rn Baxter, Heather, JAMES RN Isaac Munoz, JAMES RN rv Corrections: (The following items were deleted from the chart) 10/13 19:18 18:42 10/13/2018 18:42 Discharged to Home. Impression: Chest pain, unspecified; rv Exposure to excessive natural heat. Condition is Stable. Discharge Instructions: Nonspecific Chest Pain, [id number], Heat Exhaustion Information, Hypertension. Forms are Work release form, Medication Reconciliation Form, Thank You Letter, Antibiotic Education, Prescription Opioid Use. Follow up: Emergency Department; When: As needed; Reason: Worsening of condition. Follow up: Private Physician; When: 2 - 3 days; Reason: Recheck today's complaints, Continuance of care, Re-evaluation by your physician. snw
--- NOTE | 2018-10-14 07:54 | EKG ---
Test Date: 2018-10-13 Test Time: 18:11:56 Cleaning Supervisor: TREVER MEASUREMENT RESULTS: Intervals: Rate: 73 MN: 216 QRSD: 76 QT: 400 QTc: 440 [place]: P: 63 MN: 216 QRS: 46 T: -68 INTERPRETIVE STATEMENTS: Sinus rhythm with 1st degree AV block Nonspecific T wave abnormality Abnormal ECG Compared to ECG 10/13/2018 14:25:12 First degree AV block now present Possible ischemia no longer present T-wave abnormality still present Electronically Signed On 10-14-18 07:52:53 CDT by Musa Wiggins
--- NOTE | 2018-10-14 07:56 | EKG ---
Test Date: 2018-10-13 Test Time: 14:25:12 Slag Production Worker: TREVER MEASUREMENT RESULTS: Intervals: Rate: 91 PA: 172 QRSD: 74 QT: 362 QTc: 445 [place]: P: 37 PA: 172 QRS: 47 T: 90 INTERPRETIVE STATEMENTS: Normal sinus rhythm T wave abnormality, consider lateral ischemia Abnormal ECG Compared to ECG 04/30/2018 13:37:31 Possible ischemia now present Atrial premature complex(es) no longer present T-wave abnormality still present Electronically Signed On 10-14-18 07:53:00 CDT by Musa Wiggins
== END 2018-10-13 19:18 | disposition home or self-care (01) ==
LOC: ER 14:01
DX: R07.9 Chest pain, unspecified (principal); T67.8XXA Other effects of heat and light, initial encounter; I10 Essential (primary) hypertension; X58.XXXA Exposure to other specified factors, initial encounter; Y92.098 Other place in other non-institutional residence as the place of occurrence of the external cause; Z86.73 Personal history of transient ischemic attack (TIA), and cerebral infarction without residual deficits
CPT/HCPCS: 96361; 93005 ×2; 85025; 80048; 36415; 83735; 82550; 85610; 80076; 84484 ×2; 83880; 71275; 74175; 71045; 96375; 96374; 99285; Q9967; J7030; J2405

== ENCOUNTER 2018-12-01 10:12 | Observation (INO) | payer OTHER ==
[2018-12-01 10:35] LABS: Absolute Lymphocytes (CBC) 1.3 K/uL (0.7-4.9); Basophils % 0.5 % (0-1.3); Hematocrit 44.2 % (39.6-49.0); Lymphocytes % 16.9 % (15.3-44.8); MPV 9.2 fL (7.6-11.3); RBC Red Blood Cell Count 5.05 M/uL (4.33-5.43)
[2018-12-01 10:43] LABS: Protime INR 1.04
[2018-12-01] MEDS ORDERED: METOPROLOL TAR 50 MG TAB ONE (10:44)
[2018-12-01] MEDS ORDERED: MORPHINE 4 MG/ML SYR ONE ×2 (10:44→11:44)
[2018-12-01] MEDS ORDERED: METOPROLOL TARTRATE 5 MG/5 ML INJ IV ONE ×2 (10:45→11:39)
[2018-12-01] MEDS ORDERED: FAMOTIDINE 20 MG/2 ML VIAL IV ONE (10:45)
[2018-12-01] MEDS ORDERED: ONDANSETRON 4 MG/2 ML VIAL ONE (10:45)
[2018-12-01] MEDS ORDERED: ASPIRIN 81 MG CHEWABLE TABLET ONE (10:58)
[2018-12-01 11:00] LABS: ALT/SGPT 31 U/L (12-78); AST/SGOT 26 U/L (15-37); Alkaline Phosphatase 87 U/L (45-117); BUN Blood Urea Nitrogen 16 mg/dL (7-18); Bicarbonate 24 mmol/L (21-32); Bilirubin Direct 0.3 mg/dL (0-0.2); Bilirubin Total 1.5 mg/dL (0.2-1.0); Glucose Level 86 mg/dL (74-106); Magnesium 2.4 mg/dL (1.8-2.4); NT PRO-BNP 205 pg/mL (<125); Potassium 3.7 mmol/L (3.5-5.1); Protein, Total 7.6 g/dL (6.4-8.2); Sodium Level 141 mmol/L (136-145); Troponin (Emerg Dept Use Only) < 0.02 ng/mL (0.0-0.045)
[2018-12-01] MEDS ORDERED: HYDRALAZINE HCL 10 MG TABLET ONE (11:43)
[2018-12-01] MEDS ORDERED: HYDRALAZINE HCL 20 MG/ML VIAL ONE (11:43)
--- NOTE | 2018-12-01 11:56 | ER ---
Nurse's Notes [facility] Name: Roman Gooden Age: 58 yrs Sex: Male : 1960 Arrival Date: 12/01/2018 Time: 10:14 Bed 5 Private MD: Diagnosis: Chest pain, unspecified;Essential (primary) hypertension;Thoracic aortic aneurysm, without rupture Presentation: 12/01 10:21 Presenting complaint: Patient states: He was tidying up in his garage when he suddenly aj1 started to have left sided chest pain and shortness of breath. Patient reports that he almost passed out twice. 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 Transition of care: patient was not received from another setting of care. Onset of symptoms was December 01, 2018. Risk Assessment: Do you want to hurt yourself or someone else? Patient reports no desire to harm self or others. Initial Sepsis Screen: Does the patient meet any 2 criteria? No. Patient's initial sepsis screen is negative. Does the patient have a suspected source of infection? No. Patient's initial sepsis screen is negative. Care prior to arrival: None. 10:21 Method Of Arrival: Ambulatory aj1 10:21 Acuity: DAVID 2 aj1 Triage Assessment: 10:23 General: Appears uncomfortable, Behavior is calm, cooperative. Pain: Complains of pain aj1 in anterior aspect of left upper chest Pain currently is 9 out of 10 on a pain scale. Neuro: Level of Consciousness is awake, alert, obeys commands. Cardiovascular: Reports chest pain, shortness of breath, near syncope Patient's skin is warm and dry. Historical: - Allergies: 10:23 No Known Allergies; aj1 - Home Meds: 10:23 amitriptyline 10 mg Oral tab 1 tab once daily [Active]; amlodipine 10 mg tab 1 tab once aj1 daily [Active]; atorvastatin 40 mg Oral tab 1 tab once daily [Active]; carvedilol 6.25 mg Oral tab 1 tab 2 times per day [Active]; lisinopril 20 mg Oral tab 1 tab once daily [Active]; tamsulosin 0.4 mg Oral cp24 1 cap once daily [Active]; - PMHx: 10:23 enlarged prostate; Hypertension; Patient was recently told her has a "aortic anyeurysm aj1 but they don't know where exactly it is. "; TIA; UTI; - Immunization history:: Flu vaccine is up to date. - Social history:: Smoking status: Patient/guardian denies using tobacco. - Ebola Screening: : Patient denies travel to an Ebola-affected area in the 21 days before illness onset. - Family history:: not pertinent. Screenin:23 Abuse screen: Denies threats or abuse. Denies injuries from another. Nutritional sv screening: No deficits noted. Tuberculosis screening: No symptoms or risk factors identified. Fall Risk None identified. Assessment: 10:20 Also complains of shortness of breath. General: Appears in no apparent distress. sv uncomfortable, unkempt, well developed, Behavior is calm, cooperative, appropriate for age. Pain: Complains of pain in anterior aspect of left upper chest Pain does not radiate. Pain currently is 9 out of 10 on a pain scale. Quality of pain is described as sharp, Pain began 30 min ago. Is continuous, Alleviated by nothing. Noted to be grimacing, Also complains of shortness of breath. Neuro: Level of Consciousness is awake, alert, obeys commands, Oriented to person, place, time, situation, Moves all extremities. Full function Speech is normal. Cardiovascular: Patient's skin is warm and dry. Rhythm is sinus rhythm. Respiratory: Airway is patent Respiratory effort is even, unlabored, Respiratory pattern is regular, symmetrical. Derm: Skin is clammy, Skin is pink, warm \\T\\ dry. Musculoskeletal: Range of motion: intact in all extremities. 10:48 Reassessment: Patient appears in no apparent distress at this time. No changes from sv previously documented assessment. Patient and/or family updated on plan of care and expected duration. Pain level reassessed. Patient is alert, oriented x 3, equal unlabored respirations, skin warm/dry/pink. 11:25 Reassessment: Patient appears in no apparent distress at this time. No changes from sv previously documented assessment. Patient and/or family updated on plan of care and expected duration. Pain level reassessed. Patient is alert, oriented x 3, equal unlabored respirations, skin warm/dry/pink. 12:10 Reassessment: Patient appears in no apparent distress at this time. No changes from sv previously documented assessment. Patient and/or family updated on plan of care and expected duration. Pain level reassessed. Patient is alert, oriented x 3, equal unlabored respirations, skin warm/dry/pink. 13:35 Reassessment: Patient appears in no apparent distress at this time. Patient and/or sv family updated on plan of care and expected duration. Pain level reassessed. Patient is alert, oriented x 3, equal unlabored respirations, skin warm/dry/pink. Patient states feeling better. Patient states symptoms have improved. 14:12 Reassessment: Attempted to call report, nurse to call back. sv 14:18 Reassessment: Dr Stevenson at the bedside. sv 14:30 Reassessment: Patient appears in no apparent distress at this time. No changes from sv previously documented assessment. Patient and/or family updated on plan of care and expected duration. Pain level reassessed. Patient is alert, oriented x 3, equal unlabored respirations, skin warm/dry/pink. Vital Signs: 10:23 BP 162 / 102; Pulse 84; Resp 18; Pulse Ox 99% on R/A; Weight 92.08 kg (R); Height 5 ft. aj1 10 in. (177.80 cm) (R); Pain 9/10; 10:25 Temp 97.5(O); aj1 10:40 BP 161 / 108; Pulse 67 MON; Resp 18; Pulse Ox 97% on 2 lpm NC; sv 11:01 BP 162 / 120; Pulse 63; Resp 18; Pulse Ox 96% on 2 lpm NC; sv 12:04 BP 168 / 109; Pulse 59; Resp 16; Pulse Ox 97% on 2 lpm NC; sv 12:19 BP 152 / 89; Pulse 71 MON; Resp 16; Pulse Ox 98% on 2 lpm NC; sv 13:00 BP 138 / 89; Pulse 63; Resp 14; Pulse Ox 97% on 2 lpm NC; sv 13:45 BP 141 / 96; Pulse 65 MON; Resp 15; Pulse Ox 99% on 2 lpm NC; sv 14:30 BP 143 / 90; Pulse 73; Resp 16; Pulse Ox 98% on 2 lpm NC; sv 14:35 Pain 7/10; sv 14:36 BP 133 / 81; Pulse 63; Resp 16; Pulse Ox 97% 2 lpm ; sv 10:23 Body Mass Index 29.13 (92.08 kg, 177.80 cm) aj1 10:40 Sinus Rhythm sv 12:19 Sinus Rhythm sv 13:45 Sinus Rhythm sv ED Course: 10:14 Patient arrived in ED. as 10:16 Shahana Bean, JAMES is Primary Nurse. sv 10:16 Nabeel Nails MD is Attending Physician. ross 10:20 EKG done, by ED staff, reviewed by Nabeel Nails MD. sv 10:20 acupressurist on. Pulse ox on. NIBP on. Head of bed elevated. sv 10:22 Triage completed. aj1 10:22 Initial lab(s) drawn, by ED staff, sent to lab. Inserted saline lock: 20 gauge in right sv antecubital area, using aseptic technique. Blood collected. 10:23 Arm band placed on. sv 10:23 Patient has correct armband on for positive identification. Placed in gown. Bed in low sv position. Call light in reach. 10:24 Patient maintains SpO2 saturation greater than 95% on room air. ss 10:37 Awaiting lab results, Awaiting for x-ray. sv 10:[address] Scan. sv 10:49 X-ray(s) taken. sv 10:53 XRAY Chest (1 view) In Process Unspecified. EDMS 11:[address] via stretcher. sv 11:45 Andi Tomas MD is Hospitalizing Provider. ross 12:00 CT Aorta for Dissection In Process Unspecified. EDMS 12:06 Anitra Stevenson MD is Hospitalizing Provider. ross 13:00 Inserted saline lock: 22 gauge in right forearm, using aseptic technique. IV em1 discontinued, intact, bleeding controlled, No redness/swelling at site. Pressure dressing applied. 14:37 No provider procedures requiring assistance completed. Patient admitted, IV remains in sv place. intact. Administered Medications: 10:30 Drug: Lopressor (metoprolol TARTRATE) 50 mg Route: PO; ss 10:49 Follow up: Response: No adverse reaction sv 10:31 Drug: Zofran 4 mg Route: IVP; Site: right antecubital; ss 10:49 Follow up: Response: No adverse reaction sv 10:33 Drug: Pepcid 20 mg Route: IVP; Site: right antecubital; ss 10:49 Follow up: Response: No adverse reaction sv 10:34 Drug: morphine 4 mg Route: IVP; Site: right antecubital; ss 10:49 Follow up: Response: No adverse reaction sv 10:37 Drug: Lopressor 5 mg Route: IVP; Site: right antecubital; sv 10:48 Follow up: Response: No adverse reaction; No change in condition sv 10:41 Drug: Aspirin 81 mg Route: PO; ss 10:49 Follow up: Response: No adverse reaction sv 10:48 Drug: Lopressor 5 mg Route: IVP; Site: right antecubital; sv 11:01 Follow up: Response: No adverse reaction; No change in condition sv 11:25 Drug: Lopressor 5 mg Route: IVP; Site: right antecubital; sv 11:50 Follow up: Response: No adverse reaction; No change in condition sv 12:10 Drug: hydrALAZINE 10 mg Route: IV; Rate: per protocol; Site: right antecubital; sv 12:11 Follow up: Response: No adverse reaction; IV Status: Completed infusion; IV Intake: sv 0.5ml 12:12 Drug: morphine 4 mg Route: IVP; Site: right antecubital; sv 13:00 Follow up: Response: No adverse reaction sv 12:12 Drug: Lisinopril 10 mg Route: PO; sv 12:20 Follow up: Response: No adverse reaction; Blood pressure is lowered sv 12:12 Drug: Mucomyst - Acetylcysteine 600 mg Route: PO; sv 12:20 Follow up: Response: No adverse reaction sv 12:13 Drug: hydrALAZINE 10 mg Route: PO; sv 12:20 Follow up: Response: No adverse reaction; Blood pressure is lowered sv 13:27 Drug: Lovenox 1 mg/kg Route: Sub-Q; Site: right lower abdomen; sv 14:31 Follow up: Response: No adverse reaction sv 14:31 Drug: Nitroglycerin 0.4 mg Route: Sublingual; sv 14:35 Follow up: Pain 7/10 Adult; Response: No adverse reaction; Pain is decreased sv Intake: 12:11 IV: 1ml; Total: 1ml. sv Outcome: 11:54 Decision to Hospitalize by Provider. ross 14:36 Admitted to Tele accompanied by tech, via wheelchair, room 206, with oxygen, with sv chart, Report called to Verena RAMIREZ 14:36 Condition: stable 14:36 Instructed on the need for admit. 14:54 Patient left the ED. sv Signatures: Dispatcher [employer] Ashlie Knowles RN RN aj1 Shahana Bean RN RN sv Nabeel Nails MD MD cha Martinez, Amelia as Martinez, Eric Jesica Carreno RN RN ss
--- NOTE | 2018-12-01 11:57 | EDPHYS ---
Physician Documentation [facility] Name: Roman Gooden Age: 58 yrs Sex: Male : 1960 Arrival Date: 12/01/2018 Time: 10:14 Bed 5 Private MD: ED Physician Nabeel Nails HPI: 12/01 10:25 This 58 yrs old Male presents to ER via Ambulatory with complaints of Chest ross Pain. 10:25 The patient or guardian reports chest pain that is located primarily in the substernal ross area, anterior chest wall, left. Onset: just prior to arrival. The pain does not radiate. Associated signs and symptoms: The patient has no apparent associated signs or symptoms. The chest pain is described as burning, a pressure, sharp. Duration: The patient or guardian reports a single episode, that is still ongoing. Modifying factors: The symptoms are alleviated by remaining still, the symptoms are aggravated by deep breath, movement. Severity of pain: At its worst the pain was mild moderate in the emergency department the pain is unchanged. The patient has experienced similar episodes in the past, a few times. Historical: - Allergies: 10:23 No Known Allergies; aj1 - Home Meds: 10:23 amitriptyline 10 mg Oral tab 1 tab once daily [Active]; amlodipine 10 mg tab 1 tab once aj1 daily [Active]; atorvastatin 40 mg Oral tab 1 tab once daily [Active]; carvedilol 6.25 mg Oral tab 1 tab 2 times per day [Active]; lisinopril 20 mg Oral tab 1 tab once daily [Active]; tamsulosin 0.4 mg Oral cp24 1 cap once daily [Active]; - PMHx: 10:23 enlarged prostate; Hypertension; Patient was recently told her has a "aortic anyeurysm aj1 but they don't know where exactly it is. "; TIA; UTI; - Immunization history:: Flu vaccine is up to date. - Social history:: Smoking status: Patient/guardian denies using tobacco. - Ebola Screening: : Patient denies travel to an Ebola-affected area in the 21 days before illness onset. - Family history:: not pertinent. ROS: 10:25 Constitutional: Negative for fever, chills, and weight loss, Eyes: Negative for injury, ross pain, redness, and discharge, ENT: Negative for injury, pain, and discharge, Neck: Negative for injury, pain, and swelling, Respiratory: Negative for shortness of breath, cough, wheezing, and pleuritic chest pain, Back: Negative for injury and pain, : Negative for injury, bleeding, discharge, and swelling, MS/Extremity: Negative for injury and deformity, Skin: Negative for injury, rash, and discoloration, Neuro: Negative for headache, weakness, numbness, tingling, and seizure, Psych: Negative for depression, anxiety, suicide ideation, homicidal ideation, and hallucinations, Allergy/Immunology: Negative for hives, rash, and allergies, Endocrine: Negative for neck swelling, polydipsia, polyuria, polyphagia, and marked weight changes, Hematologic/Lymphatic: Negative for swollen nodes, abnormal bleeding, and unusual bruising. 10:25 Cardiovascular: Positive for chest pain. 10:25 Abdomen/GI: Positive for abdominal pain, of the left upper quadrant and left lower quadrant. Exam: 10:25 Constitutional: This is a well developed, well nourished patient who is awake, alert, ross and in no acute distress. Head/Face: Normocephalic, atraumatic. Eyes: Pupils equal round and reactive to light, extra-ocular motions intact. Lids and lashes normal. Conjunctiva and sclera are non-icteric and not injected. Cornea within normal limits. Periorbital areas with no swelling, redness, or edema. ENT: Nares patent. No nasal discharge, no septal abnormalities noted. Tympanic membranes are normal and external auditory canals are clear. Oropharynx with no redness, swelling, or masses, exudates, or evidence of obstruction, uvula midline. Mucous membranes moist. Neck: Trachea midline, no thyromegaly or masses palpated, and no cervical lymphadenopathy. Supple, full range of motion without nuchal rigidity, or vertebral point tenderness. No Meningismus. Chest/axilla: Normal chest wall appearance and motion. Nontender with no deformity. No lesions are appreciated. Cardiovascular: Regular rate and rhythm with a normal S1 and S2. No gallops, murmurs, or rubs. Normal PMI, no JVD. No pulse deficits. Respiratory: Lungs have equal breath sounds bilaterally, clear to auscultation and percussion. No rales, rhonchi or wheezes noted. No increased work of breathing, no retractions or nasal flaring. Back: No spinal tenderness. No costovertebral tenderness. Full range of motion. Male : Normal genitalia with no discharge or lesions. Skin: Warm, dry with normal turgor. Normal color with no rashes, no lesions, and no evidence of cellulitis. MS/ Extremity: Pulses equal, no cyanosis. Neurovascular intact. Full, normal range of motion. Neuro: Awake and alert, GCS 15, oriented to person, place, time, and situation. Cranial nerves II-XII grossly intact. Motor strength 5/5 in all extremities. Sensory grossly intact. Cerebellar exam normal. Normal gait. Psych: Awake, alert, with orientation to person, place and time. Behavior, mood, and affect are within normal limits. 10:25 Abdomen/GI: Inspection: abdomen appears normal, Bowel sounds: normal, Palpation: abdomen is soft and non-tender, soft, mild abdominal tenderness, in the left lower quadrant. Vital Signs: 10:23 BP 162 / 102; Pulse 84; Resp 18; Pulse Ox 99% on R/A; Weight 92.08 kg (R); Height 5 ft. aj1 10 in. (177.80 cm) (R); Pain 9/10; 10:25 Temp 97.5(O); aj1 10:40 BP 161 / 108; Pulse 67 MON; Resp 18; Pulse Ox 97% on 2 lpm NC; sv 11:01 BP 162 / 120; Pulse 63; Resp 18; Pulse Ox 96% on 2 lpm NC; sv 12:04 BP 168 / 109; Pulse 59; Resp 16; Pulse Ox 97% on 2 lpm NC; sv 12:19 BP 152 / 89; Pulse 71 MON; Resp 16; Pulse Ox 98% on 2 lpm NC; sv 13:00 BP 138 / 89; Pulse 63; Resp 14; Pulse Ox 97% on 2 lpm NC; sv 13:45 BP 141 / 96; Pulse 65 MON; Resp 15; Pulse Ox 99% on 2 lpm NC; sv 14:30 BP 143 / 90; Pulse 73; Resp 16; Pulse Ox 98% on 2 lpm NC; sv 14:35 Pain 7/10; sv 14:36 BP 133 / 81; Pulse 63; Resp 16; Pulse Ox 97% 2 lpm ; sv 10:23 Body Mass Index 29.13 (92.08 kg, 177.80 cm) aj1 10:40 Sinus Rhythm sv 12:19 Sinus Rhythm sv 13:45 Sinus Rhythm sv MDM: 10:16 Patient medically screened. [facility] 10:25 Data reviewed: vital signs, nurses notes, lab test result(s), EKG, radiologic studies, [facility] CT scan, plain films. 12/01 10:21 Order name: Basic Metabolic Panel; Complete Time: 11: sv 12/01 10:21 Order name: CBC with Diff; Complete Time: 11: 12/01 10:21 Order name: LFT's; Complete Time: 11: sv 12/01 10:21 Order name: Magnesium; Complete Time: 11: sv 12/01 10:21 Order name: NT PRO-BNP; Complete Time: : 12/01 10:21 Order name: PT-INR; Complete Time: : sv 12/01 10:21 Order name: Troponin (emerg Dept Use Only); Complete Time: 11: 12/01 10:21 Order name: XRAY Chest (1 view); Complete Time: 13: 12/01 10:24 Order name: Lipase; Complete Time: 11:22 [facility] 12/01 10:38 Order name: CT Aorta for Dissection [facility] 12/01 10:21 Order name: EKG; Complete Time: 10:24 12/01 10:21 Order name: Cardiac monitoring; Complete Time: 10: 12/01 10:21 Order name: EKG - Nurse/Tech; Complete Time: 10: 12/01 10:21 Order name: IV Saline Lock; Complete Time: 10: 12/01 13:27 Order name: Diet Heart Healthy; Complete Time: 13: 12/01 10:21 Order name: Labs collected and sent; Complete Time: 10: sv 12/01 10:21 Order name: O2 Per Protocol; Complete Time: 10: 12/01 10:21 Order name: O2 Sat Monitoring; Complete Time: 10:23 sv Administered Medications: 10:30 Drug: Lopressor (metoprolol TARTRATE) 50 mg Route: PO; ss 10:49 Follow up: Response: No adverse reaction sv 10:31 Drug: Zofran 4 mg Route: IVP; Site: right antecubital; ss 10:49 Follow up: Response: No adverse reaction sv 10:33 Drug: Pepcid 20 mg Route: IVP; Site: right antecubital; ss 10:49 Follow up: Response: No adverse reaction sv 10:34 Drug: morphine 4 mg Route: IVP; Site: right antecubital; ss 10:49 Follow up: Response: No adverse reaction sv 10:37 Drug: Lopressor 5 mg Route: IVP; Site: right antecubital; sv 10:48 Follow up: Response: No adverse reaction; No change in condition sv 10:41 Drug: Aspirin 81 mg Route: PO; ss 10:49 Follow up: Response: No adverse reaction sv 10:48 Drug: Lopressor 5 mg Route: IVP; Site: right antecubital; sv 11:01 Follow up: Response: No adverse reaction; No change in condition sv 11:25 Drug: Lopressor 5 mg Route: IVP; Site: right antecubital; sv 11:50 Follow up: Response: No adverse reaction; No change in condition sv 12:10 Drug: hydrALAZINE 10 mg Route: IV; Rate: per protocol; Site: right antecubital; sv 12:11 Follow up: Response: No adverse reaction; IV Status: Completed infusion; IV Intake: sv 0.5ml 12:12 Drug: morphine 4 mg Route: IVP; Site: right antecubital; sv 13:00 Follow up: Response: No adverse reaction sv 12:12 Drug: Lisinopril 10 mg Route: PO; sv 12:20 Follow up: Response: No adverse reaction; Blood pressure is lowered sv 12:12 Drug: Mucomyst - Acetylcysteine 600 mg Route: PO; sv 12:20 Follow up: Response: No adverse reaction sv 12:13 Drug: hydrALAZINE 10 mg Route: PO; sv 12:20 Follow up: Response: No adverse reaction; Blood pressure is lowered sv 13:27 Drug: Lovenox 1 mg/kg Route: Sub-Q; Site: right lower abdomen; sv 14:31 Follow up: Response: No adverse reaction sv 14:31 Drug: Nitroglycerin 0.4 mg Route: Sublingual; sv 14:35 Follow up: Pain 7/10 Adult; Response: No adverse reaction; Pain is decreased sv Disposition: 12/01/18 11:54 Hospitalization ordered by Anitra Stevenson for Observation. Preliminary diagnosis are Chest pain, unspecified, Essential (primary) hypertension, Thoracic aortic aneurysm, without rupture. - Bed requested for Telemetry/MedSurg (observation). - Status is Observation. sv - Condition is Stable. - Problem is new. - Symptoms have improved. UTI on Admission? No Signatures: Dispatcher [employer] EDMS Ashlie Hall RN RN aj1 Shahana Bean RN RN sv Anderson, Corey, MD MD cha Smirch, Shelby, RN RN ss Botello, Elizabeth eb Corrections: (The following items were deleted from the chart) 12:07 11:54 Hospitalization Ordered by Andi Tomas MD for Observation. Preliminary ross diagnosis is Chest pain, unspecified; Essential (primary) hypertension; Thoracic aortic aneurysm, without rupture. Bed requested for Telemetry/MedSurg (observation). Status is Observation. Condition is Stable. Problem is new. Symptoms have improved. UTI on Admission? No. ross 14:09 12:07 12/01/2018 11:54 Hospitalization Ordered by Anitra Stevenson MD for Observation. eb Preliminary diagnosis is Chest pain, unspecified; Essential (primary) hypertension; Thoracic aortic aneurysm, without rupture. Bed requested for Telemetry/MedSurg (observation). Status is Observation. Condition is Stable. Problem is new. Symptoms have improved. UTI on Admission? No. ross 14:54 14:09 12/01/2018 11:54 Hospitalization Ordered by Anitra Stevenson MD for Observation. sv Preliminary diagnosis is Chest pain, unspecified; Essential (primary) hypertension; Thoracic aortic aneurysm, without rupture. Bed requested for Telemetry/MedSurg (observation). Status is Observation. Condition is Stable. Problem is new. Symptoms have improved. UTI on Admission? No. eb
[2018-12-01] MEDS ORDERED: ACETYLCYST 6,000 MG/30 ML VIAL ONE (12:03)
[2018-12-01] MEDS ORDERED: LISINOPRIL 10 MG TAB ONE (12:03)
--- NOTE | 2018-12-01 12:21 | RAD REPORT ---
EXAM DESCRIPTION: CT - Angio Aorta For Dissection - 12/01/2018 11:58 am CLINICAL HISTORY: . Chest and abd pain COMPARISON: October 2018 TECHNIQUE: Computed tomography angiography of the chest, abdomen pelvis were obtained. One hundred e ighty cc Isovue 370 was administered intravenously. Coronal and sagittal reconstruction were performe d. MIP 3D reconstruction was performed All CT scans are performed using dose optimization technique as appropriate and may include automated exposure control or mA/KV adjustment according to patient size. FINDINGS: An aortic dissection is not seen. An aortic aneurysm is not displayed. Proximal thoracic aorta has an AP diameter 4.4 centimeters The celiac, SMA and JIM are patent . A lung consolidation is not present. A pericardial effusion is not seen. A pleural effusion is not n oted. Paraseptal emphysema The liver,spleen, pancreas adrenals kidneys demonstrate no significant abnormality. The appendix is normal. There no evidence diverticulitis. No ascites is noted. Marked prostatic enlargement. Small inguinal hernias containing fat Borderline gallbladder distention IMPRESSION: Negative for an aortic dissection. Borderline gallbladder distention
--- NOTE | 2018-12-01 13:02 | RAD REPORT ---
EXAM DESCRIPTION: Jose Single View12/01/2018 10:56 am CLINICAL HISTORY: Chest pain COMPARISON: October 2018 FINDINGS: The lungs are The lungs appear clear of acute infiltrate. The heart is borderline enlarge d IMPRESSION: No acute abnormalities displayed
[2018-12-01] MEDS ORDERED: ENOXAPARIN 100 MG/ML SYR SQ ONE (13:41)
[2018-12-01] MEDS ORDERED: NITROGLYCERIN 0.4 MG/TAB SL ONE (14:46)
[2018-12-01] MEDS ORDERED: LABETALOL HCL 100 MG/20 ML IV PRN (14:49)
[2018-12-01] MEDS ORDERED: NITROGLYCERIN 0.4 MG/TAB SL PRN (14:49)
[2018-12-01] MEDS ORDERED: MORPHINE 2 MG/ML SYR IV PRN (14:49)
[2018-12-01] MEDS ORDERED: ACETAMINOPHEN 500 MG TAB PO PRN (14:49)
[2018-12-01] MEDS ORDERED: TRAMADOL HCL 50 MG TAB PO PRN (20:02)
--- NOTE | 2018-12-01 20:02 | P.PN ---
Subjective Date of Service: 12/01/18 Chief Complaint: chest pain Patient admitted for chest pain. He reported to the nurse that he was having some right shoulder pain. He further reported that he fell out of his bed in the ER but did not tell anyone. He was embarassed. He was requesting pain medication. Physical Examination - Vital Signs Temperature: 97.8 F Blood Pressure: 104/57 Pulse: 62 Respirations: 18 Pulse Ox (%): 96 - Physical Exam General: Alert, Cooperative HEENT: Atraumatic Neck: Supple Respiratory: Clear to auscultation bilaterally, Normal air movement Cardiovascular: Normal pulses, Regular rate/rhythm Musculoskeletal: Other (SOme pain to the right shoulder with palpation. No erythema or swelling. Good range of motion but some pain with range of motion) - Studies Laboratory Data (last 24 hrs) 12/01/18 10:23: Lipase 107 12/01/18 10:23: PT 12.2, INR 1.04 12/01/18 10:23: WBC 7.6, Hgb 14.9, Hct 44.2, Plt Count 238 12/01/18 10:23: Sodium 141, Potassium 3.7, BUN 16, Creatinine 0.92, Glucose 86, Magnesium 2.4, Total Bilirubin 1.5 H, AST 26, ALT 31, Alkaline Phosphatase 87 Assessment & Plan Discharge Plan: Home Plan to discharge in: 24 Hours Physician Review Additional Text: Assessment: Right shoulder pain after fall Plan: Will check shoulder xray to rule out fracture. Will continue with chest pain rule out evaluation. So far cardiac enzymes normal. Will add Tramadol and Ibuprofen for pain as needed. Time Spent Managing Pts Care (In Minutes): 15
[2018-12-01] MEDS ORDERED: IBUPROFEN 400 MG TAB PO PRN (20:03)
--- NOTE | 2018-12-01 20:17 | RAD REPORT ---
EXAM DESCRIPTION: RAD - Shoulder Right 2 View - 12/01/2018 8:10 pm CLINICAL HISTORY: Right shoulder pain status post fall FINDINGS: No fracture or dislocation is seen. Osteoporosis.
[2018-12-01] MEDS: METOPROLOL TAR 25 MG TAB PO SCH (20:44)
[2018-12-01] MEDS: ATORVASTATIN 40 MG TAB PO SCH (20:45)
[2018-12-01] MEDS: TRAMADOL HCL 50 MG TAB PO PRN (20:45)
--- NOTE | 2018-12-02 01:36 | HP ---
Date of Admission: 12/01/2018 Chief Complaint: Chest pain. History Of Present Illness: Patient is a 58-year-old male with past medical history of hypertension, history of TIA, and recently diagnosed thoracic aortic aneurysm, who comes in with chest pain. Love ent was in his usual state of health until night prior to admission. He had an episode of emesis, di d not have an uneventful night. This morning, while working in his garage, not engage in any strenuo us activity. Patient started having substernal chest pain, which was nonradiating, sharp, and not as sociated with any nausea, vomiting, diaphoresis, or palpitations. Patient did not have any shortness of breath. Pain was constant, moderate, progressively worsening. Patient decided to come to the ER for further evaluation. He denies any cough, fever, chills. No sputum production. No ill contacts . No stomach upset or acid reflux type symptoms. In the ER, his initial workup showed negative trop onin level. White blood cell count was normal due to his history of thoracic aneurysm. CT aortic di ssection was done showed no aortic dissection, did show borderline gallbladder distention and thoraci c aorta diameter of 4.4 cm. Patient's blood pressure was not well controlled, was in the 160s/110; r equired multiple IV and p.o. medications to control his blood pressure. He also received 2 doses of morphine, which improved his pain, however, did not resolve it. When seen in the ER, he was awake, a lert, oriented x3, eating a snack, did not appear to be in any acute distress. Still complaining of minimal chest pain. Past Medical History: Hypertension, CVA, history of thoracic aortic aneurysm, urinary retention seco ndary to benign prostatic hyperplasia. Past Surgical History: Tonsillectomy, ankle surgery after trauma, and eye surgery for what sounds li ke correction of strabismus when he was 8 years old. Allergies: NO KNOWN DRUG ALLERGIES. Medications: Patient currently does not take any medications at home. Family History: Mother had heart disease. Father had liver disease. Brother has developed cancer. Social History: Patient denies any smoking ever. No alcohol use or illicit drug use. Patient is in dependent in his activities of daily living. Review of Systems: Ten-point system reviewed, negative except as per HPI. Physical Examination: Vital Signs: Blood pressure 162/102, pulse 84, respirations 18, O2 of 99% on room air. General: Awake, alert, oriented x3, not in any acute distress. HEENT: Normocephalic, atraumatic. PERRLA. EOMI. Moist mucous membranes. Oropharynx is clear. Co njunctivae are anicteric. Neck: Supple. No JVD. Trachea midline. Cardiovascular: S1, S2. Regular rate and rhythm. Peripheral pulses present. Respiratory: Moving air well bilaterally. No wheezing or stridor. No use of accessory muscles. Gastrointestinal: Abdomen is soft. Minimal tenderness to palpation in the left lower quadrant. No rebound or guarding. Positive bowel sounds. No hepatomegaly. Extremities: No clubbing, cyanosis, or edema. No calf tenderness. Neurologic: Cranial nerves 2 through 12 intact grossly. No focal neurological deficit. Speech is n ormal. Skin: No rashes. Normal skin turgor. Psychiatric: Mood is okay. Affect is full. Insight and judgment are good. Laboratory Data: INR 1.04. Sodium 141, potassium 3.7, chloride 108, CO2 of 24, BUN 16, creatinine 0 .92, glucose 86, calcium 8.8, magnesium 2.4, total bilirubin 1.5, direct bilirubin 0.3, AST 26, ALT 3 1. Troponin is less than 0.02. BNP 205, albumin 4. WBC 7.6, H and H 14.9 and 44.2, platelets 238, neutrophils 72%. Imaging Studies: CT aortic dissection shows negative for aortic dissection, borderline gallbladder d istention. Proximal thoracic aorta has diameter of 4.4 cm. Chest x-ray personally reviewed shows no acute abnormalities. Assessment And Plan: A 58-year-old male with: 1.Chest pain. Patient does have hypertension, history of transient ischemic attack. Had a previous cardiac catheterization in 2018 that showed RCA stenosis of 30%. No stents were placed at that time . Patient also has dilated thoracic aortic aneurysm at 4.4 cm, unchanged from the past 2 months. We will start on chest pain guidelines. Continue with morphine and nitroglycerin as needed for pain. We will consult Cardiology. Obtain echocardiogram. 2.Uncontrolled hypertension. Patient is requiring several medications p.o. and IV and we will follo w his blood pressure. Patient has not been taking his medications. He has not seen his doctor and d oes not have any refills. We will continue to monitor closely due to history of aneurysm. 3.Thoracic aortic aneurysm. No change from previous. We will need to follow up with CT surgery as outpatient. 4.History of transient ischemic attack. 5.Hyperbilirubinemia, likely acute phase reactant. CT does not show any gallbladder distention. He does have some borderline gallbladder distention. Plan: We will admit to Med/Surg, place as inpatient. Monitor blood pressure closely. If chest pain is not resolved, may need to be transferred to ICU on nitroglycerin drip. Case was discussed with Leanna Galeano and Dr. Nails. /MODL Voice ID: [id number]
[2018-12-02 05:03] LABS: Absolute Lymphocytes (CBC) 1.6 K/uL (0.7-4.9); Basophils % 0.5 % (0-1.3); Hematocrit 42.5 % (39.6-49.0); Lymphocytes % 27.1 % (15.3-44.8); MPV 9.6 fL (7.6-11.3); RBC Red Blood Cell Count 4.79 M/uL (4.33-5.43)
[2018-12-02 05:33] LABS: BUN Blood Urea Nitrogen 16 mg/dL (7-18); Bicarbonate 27 mmol/L (21-32); Glucose Level 98 mg/dL (74-106); HDL Cholesterol 47 mg/dL (40-60); LDL Cholesterol, Calculated 76 (<130); Potassium 3.7 mmol/L (3.5-5.1); Sodium Level 142 mmol/L (136-145)
--- NOTE | 2018-12-02 06:30 | EKG ---
Test Date: 2018-12-01 Test Time: 10:20:37 [employer] Manager: ARI MEASUREMENT RESULTS: Intervals: Rate: 81 SD: 178 QRSD: 80 QT: 374 QTc: 434 [place]: P: 36 SD: 178 QRS: 26 T: 95 INTERPRETIVE STATEMENTS: Normal sinus rhythm T wave abnormality, consider lateral ischemia Abnormal ECG Compared to ECG 10/13/2018 18:11:56 Possible ischemia now present First degree AV block no longer present T-wave abnormality still present Electronically Signed On 12-02-18 06:29:00 CDT by Morgan Galeano
[2018-12-02] MEDS ORDERED: ENOXAPARIN 40 MG/0.4 ML SQ SCH (09:00)
[2018-12-02] MEDS: ASPIRIN EC 81 MG TAB PO SCH (09:21)
[2018-12-02] MEDS: METOPROLOL TAR 25 MG TAB PO SCH ×2 (09:22→21:32)
[2018-12-02] MEDS: LISINOPRIL 20 MG TAB PO SCH (09:22)
[2018-12-02] MEDS: AMLODIPINE 10 MG TAB PO SCH ×2 (11:00→16:13)
--- NOTE | 2018-12-02 12:57 | CON ---
History Of Present Illness: Mr. Gooden is 58. He was working in his garage, not doing anything partic ular heavy or strenuous when he started having chest pain. It was in the left upper quadrant of his abdomen or left lower part of his chest. It was pleuritic, hurt worse when he took a deep breath. I t lasted most of the night. It is gone now. Never felt anything different. There was some vomiting before all this happened. The patient has never had myocardial infarction or a stroke. He had a ca rdiac cath in January 2015, so about 10 months ago that showed just a minimal RCA plaque, otherwise normal, normal ejection fraction. The patient has hypertension and dyslipidemia. Outpatient medica tions are amlodipine, lisinopril, a beta janine, and a statin. He is not a tobacco user. Presently , he was said to have enlargement of his thoracic aorta, but a CT angio of the aorta revealed largest dimension is 4.4, so mild ectasia. No evidence of dissection. Since he has been in the hospital, E KGs and enzymes do not indicate myocardial necrosis or any other findings consistent with acute coron dajuan syndrome and evaluation for pulmonary embolus has not been done as of yet. Physical Examination: Vital Signs: 5 feet 10 inches, 205 pounds. HEENT: Normal carotids. No bruit. Lungs: Clear. Cardiac: Normal. Abdomen: Soft. Extremities: Normal. Laboratory Data: Complete blood count is normal. Coagulation studies are normal. All of his tropon ins are less than 0.02. Total cholesterol 140. Impression And Plan: Most recent blood pressure, 148/90. I think the patient needs to have his bloo d pressure brought under better control until we can rule out pulmonary embolus. I would recommend a full anticoagulant dose of Lovenox rather than DVT prophylaxis and that we do a CT angio of the chest looking for pulmonary embolus. The one for dissection cannot be relied on to rule out pulmonary embolus. BERTO/RENEE Voice ID: [id number] Report ID: [id number]
[2018-12-02] MEDS: ATORVASTATIN 40 MG TAB PO SCH (21:32)
[2018-12-02] MEDS: ENOXAPARIN 100 MG/ML SYR SQ SCH (21:32)
[2018-12-02] MEDS: TRAMADOL HCL 50 MG TAB PO PRN (21:36)
[2018-12-03 05:51] LABS: BUN Blood Urea Nitrogen 10 mg/dL (7-18); Bicarbonate 30 mmol/L (21-32); Glucose Level 89 mg/dL (74-106); Potassium 4.1 mmol/L (3.5-5.1); Sodium Level 144 mmol/L (136-145)
[2018-12-03] MEDS: AMLODIPINE 10 MG TAB PO SCH (08:08)
[2018-12-03] MEDS: LISINOPRIL 20 MG TAB PO SCH (08:08)
[2018-12-03] MEDS: ASPIRIN EC 81 MG TAB PO SCH (08:08)
[2018-12-03] MEDS: METOPROLOL TAR 25 MG TAB PO SCH (08:09)
[2018-12-03] MEDS: ENOXAPARIN 100 MG/ML SYR SQ SCH (08:09)
[2018-12-03] MEDS: TRAMADOL HCL 50 MG TAB PO PRN (08:12)
[2018-12-03] MEDS ORDERED: REGADENOSON 0.4 MG/5 ML SYR IV ONE (08:42)
[2018-12-03] MEDS ORDERED: METOPROLOL TAR 50 MG TAB PO SCH (09:00)
[2018-12-03] MEDS ORDERED: ENOXAPARIN 40 MG/0.4 ML SQ SCH (09:00)
--- NOTE | 2018-12-03 12:53 | ECHO ---
HEIGHT: 5 ft 10 in WEIGHT: 205 lb 11.2 oz DATE OF STUDY: 12/03/[address]: Anitra Stevenson MD 2-DIMENSIONAL: YES M.MODE: YES DOPPLER: YES COLOR FLOW: YES TDS: NO PORTABLE: NO DEFINITY: NO BUBBLE STUDY: NO DIAGNOSIS: CHEST PAIN CARDIAC HISTORY: CATHERIZATION: NO SURGERY: NO PROSTHETIC VALVE: NO PACEMAKER: NO MEASUREMENTS (cm) DIASTOLIC (NORMALS) SYSTOLIC (NORMALS) IVSd 1.1 (0.6-1.2) LA Diam 3.6 (1.9-4.0) LVEF 62% LVIDd 5.2 (3.5-5.7) LVIDs 3.5 (2.0-3.5) %FS 33% LVPWd 1.3 (0.6-1.2) Ao Diam 3.2 (2.0-3.7) 2 DIMENSIONAL ASSESSMENT: RIGHT ATRIUM: NORMAL LEFT ATRIUM: NORMAL RIGHT VENTRICLE: NORMAL LEFT VENTRICLE: NORMAL TRICUSPID VALVE: NORMAL MITRAL VALVE: NORMAL PULMONIC VALVE: NORMAL AORTIC VALVE: NORMAL PERICARDIAL EFFUSION: NONE AORTIC ROOT: NORMAL LEFT VENTRICULAR WALL MOTION: NORMAL. DOPPLER/COLOR FLOW: NORMAL. COMMENTS: NORMAL 2D ECHO WITH DOPPLER. TECHNOLOGIST: MADALYN CALDERA
--- NOTE | 2018-12-03 13:45 | RAD REPORT ---
EXAM DESCRIPTION: NM - Rest Stress Cardiac Imaging - 12/03/2018 1:35 pm CLINICAL HISTORY: Chest pain COMPARISON: January 2018 TECHNIQUE: The patient was administered 10.3 mCi of Tc 99m Sestamibi prior to resting SPECT imaging of the heart. The patient was then administered 32.4 mCi of Tc 99m Sestamibi following exercise or ph armacologic stress. Multiplanar SPECT images were reviewed. FINDINGS: The end diastolic volume is 154 ml, the end systolic volume is 88 ml, and the ejection fra ction is 43 %. Ventricular volumes and ejection fraction are similar to the prior study. Minimal focus of stress ischemia is again evident at the left ventricular apex. This is a minimal fin ding similar to 2018. Diminished activity along the inferior wall does not clearly change between res t and stress imaging. This was present on the prior study and is probably diaphragm attenuation artif act rather than scarring. No new stress ischemic focus identified. IMPRESSION: Minimal focus of stress ischemia is again evident at the left ventricular apex. This pat tern is similar to January 2018. Fixed diminished activity along the inferior wall base to apex is believed to be diaphragm artifact r ather than scarring. No new stress ischemia. End-diastolic volume was 154 milliliters with a 43% EF. These values are not substantially different from the comparison.
--- NOTE | 2018-12-03 14:06 | P.PN ---
Subjective Date of Service: 12/02/18 (pt seen and examined on 12/02/18. Due to computer issues note was unable to be saved) Chief Complaint: chest pain Subjective: Improving reports shoulder pain after fall Review of Systems 10-point ROS is otherwise unremarkable Physical Examination - Vital Signs Temperature: 97.1 F Blood Pressure: 141/85 Pulse: 63 Respirations: 16 Pulse Ox (%): 96 - Physical Exam General: Alert, In no apparent distress, Oriented x3, Mild distress HEENT: Atraumatic, PERRLA, EOMI Neck: Supple, JVD not distended Respiratory: Clear to auscultation bilaterally, Normal air movement Cardiovascular: No edema, Normal pulses, Regular rate/rhythm, Normal S1 S2 Gastrointestinal: Normal bowel sounds, Soft and benign, Non-distended, No tenderness Musculoskeletal: Tenderness (right shoulder) Integumentary: No rashes Neurological: Normal speech, Normal tone, Normal affect - Studies Laboratory Tests 12/01/18 12/01/18 12/01/18 10:23 10:23 10:23 WBC 7.6 RBC 5.05 Hgb 14.9 Hct 44.2 MCV 87.6 MCH 29.5 MCHC 33.7 RDW 15.6 H Plt Count 238 MPV 9.2 Neutrophils % 72.8 Lymphocytes % 16.9 Monocytes % 9.3 Eosinophils % 0.5 Basophils % 0.5 Absolute Neutrophils 5.6 Absolute Lymphocytes 1.3 Absolute Monocytes 0.7 Absolute Eosinophils 0.0 Absolute Basophils 0.0 PT 12.2 INR 1.04 Sodium 141 Potassium 3.7 Chloride 108 H Carbon Dioxide 24 BUN 16 Creatinine 0.92 Estimated GFR 84 L Glucose 86 Calcium 8.8 Magnesium 2.4 Total Bilirubin 1.5 H Direct Bilirubin 0.3 H AST 26 ALT 31 Alkaline Phosphatase 87 Rapid Troponin I < 0.02 NT-Pro-B Natriuret Pep 205 H Serum Total Protein 7.6 Albumin 4.0 Globulin 3.6 H Albumin/Globulin Ratio 1.1 Lipase 12/01/18 10:23 WBC RBC Hgb Hct MCV MCH MCHC RDW Plt Count MPV Neutrophils % Lymphocytes % Monocytes % Eosinophils % Basophils % Absolute Neutrophils Absolute Lymphocytes Absolute Monocytes Absolute Eosinophils Absolute Basophils PT INR Sodium Potassium Chloride Carbon Dioxide BUN Creatinine Estimated GFR Glucose Calcium Magnesium Total Bilirubin Direct Bilirubin AST ALT Alkaline Phosphatase Rapid Troponin I NT-Pro-B Natriuret Pep Serum Total Protein Albumin Globulin Albumin/Globulin Ratio Lipase 107 Imagings Data: ct dissection addendum: NO PE Medications List Reviewed: Yes Assessment And Plan - Current Problems (Diagnosis) (1) Chest pain Onset Date: 01/10/18 Current Visit: No Status: Acute Qualifiers: Chest pain type: precordial pain Qualified Code(s): R07.2 - Precordial pain (2) Hypertension Onset Date: 01/10/18 Current Visit: No Status: Acute Qualifiers: Hypertension type: essential hypertension Qualified Code(s): I10 - Essential (primary) hypertension (3) Right shoulder pain Current Visit: Yes Status: Acute Qualifiers: Chronicity: acute Qualified Code(s): M25.511 - Pain in right shoulder (4) Thoracic aortic aneurysm Current Visit: Yes Status: Acute Qualifiers: Presence of rupture: without rupture Qualified Code(s): I71.2 - Thoracic aortic aneurysm, without rupture - Plan cardiac stress test in am Full dose lovenox Discharge Plan: Home Plan to discharge in: 24 Hours
--- NOTE | 2018-12-03 14:55 | TREADPHA ---
DX: CHEST PAIN Date of Study: 12/03/2018 Ht: 5 10 Wt: 205 lb 0 oz Consulting Physician: AYANNA MEDICATIONS: TYLENOL, ASPIRIN, NORVASC, LIPITOR, LOVENOX, LISINOPRIL HISTORY: 58 YEAR OLD MALE WITH COMPLAINTS OF CHEST PAIN. MEDICAL HISTORY OF TIA AND THORASIS AA PHYSICIAL EXAMINATION: RESTING B.P.: 141/80 RESTING H.R.: 61 RESTING EKG: NORMAL PROTOCOL: LEXISCAN EXERCISE TIME: 3:30 B.P. AT PEAK STRESS: 152/98 IMPRESSION: LEXISCAN INJECTED, CARDIOLITE INJECTED PER PROTOCOL. SEE NUCLEAR MEDICINE REPORT. NO SUPRAVENTRICULAR TACHYCARDIA. NO VENTRICULAR TACHYCARDIA. NO PREMATURE VENTRICULAR COMPLEXES. DENIED CHEST PAIN. NON DIAGNOSTIC EKG WITH LEXISCAN STRESS.
[2018-12-03] MEDS ORDERED: AMITRIPTYLINE 10 MG TAB PO SCH (21:00)
--- NOTE | 2018-12-04 03:38 | DS ---
Date of Discharge: 12/03/2018 Admitting Diagnoses: 1.Chest pain, rule out acute coronary syndrome. 2.Uncontrolled hypertension. 3.Thoracic aortic aneurysm. 4.History of transient ischemic attack. 5.Hyperbilirubinemia. Discharge Diagnoses: 1.Chest pain, acute coronary syndrome ruled out. 2.Uncontrolled hypertension, improved with medications. 3.Thoracic aortic aneurysm without rupture. 4.Acute right shoulder pain, status post fall. No fracture. 5.History of cerebrovascular accident. 6.Benign prostatic hyperplasia with previous history of urinary retention. Hospital Course: The patient is a 58-year-old male with past medical history of hypertension, histor y of TIA, recently diagnosed thoracic aortic aneurysm, comes in with chest pain. He had uncontrolled blood pressure in the 160s over 100s. CT aortic dissection did not show any thoracic aortic dissect ion. However, the aneurysm was 4.4 cm. The patient was admitted to rule out ACS. His cardiac enzym es were negative x3. ACS was ruled out. Lipid panel was within normal limits. His blood pressure w as improved with treatment. The patient understands that he needs to follow up with CT Surgery as an outpatient to further evaluate thoracic aortic aneurysm. The patient was seen by Cardiology, Dr. Alejo quinones, who suspected PE. CT aortic dissection was read by the radiologist to evaluate for PE and no p ulmonary embolism was identified. Of note, the patient did have a fall in the ER. He did not mentio n this to anyone. However, as he began to hurt, the night doctor was called in. X-ray was done, i ch did not show any fractures. The patient was then scheduled for a stress test, which showed no new stress ischemia; however, did show minimal focus of stress ischemia evident at the left ventricular apex similar to January 2018, fixed diminished activity along the inferior wall base to apex believ ed to be diaphragm artifact rather than scarring. His ejection fraction was 62% on echocardiogram. The patient was then discharged home in a stable condition. Activity: As tolerated. Medications: As per medication reconciliation list. Followup: Follow up with primary care physician in 2-3 days. Follow up with golf cart maker in 1-2 Dr. Froylan reyna. Return to ER for worsening condition. Diet: Heart healthy. Physical Examination: General: Awake, alert, oriented x3. No acute distress. CV: S1, S2. Respiratory: Moving air well bilaterally. Abdomen: Soft, nontender, nondistended. Positive bowel sounds. Extremities: No clubbing, cyanosis, or edema. Neurologic: Nonfocal. SA/MODL Voice ID: [id number] Report ID: [id number]
[2018-12-04] MEDS ORDERED: TAMSULOSIN 0.4 MG SR CAP PO SCH (09:00)
== END 2018-12-03 16:20 | disposition home or self-care (01) ==
LOC: ER 10:12 → ERHOLD 13:52 → 2ND 14:40
PROVIDERS: ADMIT Family Medicine; ATTEND Family Medicine
DX: R07.89 Other chest pain (principal); I10 Essential (primary) hypertension; I71.2 Thoracic aortic aneurysm, without rupture; E80.6 Other disorders of bilirubin metabolism; E78.5 Hyperlipidemia, unspecified; M25.511 Pain in right shoulder; W06.XXXA Fall from bed, initial encounter; Y92.230 Patient room in hospital as the place of occurrence of the external cause; N40.0 Benign prostatic hyperplasia without lower urinary tract symptoms; R94.31 Abnormal electrocardiogram [ECG] [EKG]; M81.0 Age-related osteoporosis without current pathological fracture; Z79.899 Other long term (current) drug therapy; Z86.73 Personal history of transient ischemic attack (TIA), and cerebral infarction without residual deficits; Z82.49 Family history of ischemic heart disease and other diseases of the circulatory system
CPT/HCPCS: 93005; 93017; 93306; 85025 ×2; 80048 ×3; 36415 ×2; 83735; 85610; 80061; 80076; 84484 ×3; 83690; 83880; 71275; 74175; 71045; 73030; 94760 ×5; 78452; 96375; 96372; 96374; 99285; Q9967; J0360; J1650 ×4; J2785; J2405; A9500; G0378 ×2

== ENCOUNTER 2019-01-20 11:56 | Observation (INO) | payer OTHER ==
[2019-01-20 12:27] LABS: Absolute Lymphocytes (CBC) 1.1 K/uL (0.7-4.9); Basophils % 0.6 % (0-1.3); Hematocrit 41.6 % (39.6-49.0); Lymphocytes % 18.4 % (15.3-44.8); MPV 8.3 fL (7.6-11.3); RBC Red Blood Cell Count 4.77 M/uL (4.33-5.43)
[2019-01-20 12:30] LABS: Protime INR 0.99
[2019-01-20 12:47] LABS: ALT/SGPT 21 U/L (12-78); AST/SGOT 16 U/L (15-37); Albumin 3.3 g/dL (3.4-5.0); Alkaline Phosphatase 82 U/L (45-117); BUN Blood Urea Nitrogen 10 mg/dL (7-18); Bicarbonate 27 mmol/L (21-32); Bilirubin Direct 0.1 mg/dL (0-0.2); Bilirubin Total 0.7 mg/dL (0.2-1.0); Glucose Level 106 mg/dL (74-106); Lipase 104 U/L (73-393); Magnesium 2.3 mg/dL (1.8-2.4); NT PRO-BNP 909 pg/mL (<125); Potassium 3.6 mmol/L (3.5-5.1); Protein, Total 6.3 g/dL (6.4-8.2); Sodium Level 143 mmol/L (136-145); Troponin (Emerg Dept Use Only) < 0.02 ng/mL (0.0-0.045)
[2019-01-20] MEDS ORDERED: MORPHINE 2 MG/ML SYR ONE (12:48)
--- NOTE | 2019-01-20 13:55 | RAD REPORT ---
EXAM DESCRIPTION: RAD - Chest Single View - 01/20/2019 1:35 pm CLINICAL HISTORY: syncope;Chest pain Chest pain. COMPARISON: Chest Single View dated 12/01/2018; Chest Single View dated 10/13/2018; Chest Single View d ated 04/30/2018; Chest Single View dated 04/25/2018; Angio Aorta For Dissection dated 12/01/2018 FINDINGS: Portable technique limits examination quality. Mild interstitial pulmonary edema suspected. The heart is mildly enlarged in size. No displaced fract ures.
[2019-01-20 14:07] LABS: Urine Blood NEGATIVE (NEG); Urine Glucose NEGATIVE (NEG); Urine Protein TRACE (NEG); Urine pH 7.5 (5.0-7.0)
--- NOTE | 2019-01-20 14:22 | RAD REPORT ---
EXAM DESCRIPTION: CT - CTHCSPWOC - 01/20/2019 2:10 pm CLINICAL HISTORY: Trauma, head and neck injury. syncope COMPARISON: No comparisons TECHNIQUE: Axial 5 mm thick images of the head were obtained. Axial 2 mm thick images of the cervical spine were obtained with sagittal and coronal reconstruction images generated and reviewed. All CT scans are performed using dose optimization technique as appropriate and may include automated exposure control or mA/KV adjustment according to patient size. FINDINGS: CT HEAD WITHOUT CONTRAST: No acute hemorrhage, hydrocephalus or extra-axial collection is identified.No areas of brain edema or midline shift. The paranasal sinuses and mastoids are clear.The calvarium is intact. CT CERVICAL SPINE WITHOUT CONTRAST: No fracture or subluxation.Mild lower cervical degenerative change most notable at C5-6. Left-sided f acet hypertrophy is present as well at this level.No prevertebral soft tissues swelling is identified . IMPRESSION: No acute intracranial or cervical spine findings. Mild to moderate lower cervical spondylosis.
--- NOTE | 2019-01-20 14:27 | RAD REPORT ---
EXAM DESCRIPTION: CT - Angio Aorta For Dissection - 01/20/2019 2:10 pm CLINICAL HISTORY: Chest pain radiating to the back. chest pain/abdominal pain COMPARISON: <Comparisons> 12/01/2018, 10/13/2018, 04/25/2018 TECHNIQUE: CT angiography of the aorta was performed with MIPs. All CT scans are performed using dose optimization technique as appropriate and may include automated exposure control or mA/KV adjustment according to patient size. FINDINGS: A left aortic arch is present with normal branching pattern of the great vessels.The ascen ding thoracic aorta measures 4.4 cm in dimension, unchanged.No acute aortic finding is seen such as p enetrating ulcer or dissection. The celiac axis, SMA, JIM and renal arteries show plaquing at the or igins of the vessels without flow alteration. No evidence of pulmonary embolism. Lungs are mildly emphysematous but clear of acute infiltrate. The liver demonstrates no focal mass or biliary dilatation.Small low-density hepatic lesions are like ly cysts but too small fully characterize.The spleen, pancreas, adrenal glands and kidneys are within normal limits for arterial phase imaging. No bowel obstruction, free fluid or abscess.Sigmoid diverticulosis without diverticulitis.No patholog ic enlarged lymphadenopathy identified.Prominent prostatomegaly. No fracture or worrisome bone lesion seen. Small fat containing right inguinal hernia. IMPRESSION: No acute aortic finding is demonstrated. Prominent prostatomegaly.
--- NOTE | 2019-01-20 15:05 | ER ---
Nurse's Notes [facility] Name: Roman Gooden Age: 58 yrs Sex: Male : 1960 Arrival Date: 01/20/2019 Time: 11:57 Bed 26 Private MD: Diagnosis: Chest pain, unspecified;Syncope and collapse Presentation: 01/20 12:00 Presenting complaint: EMS states: c/o chest pain for 45 min. hx of aortic aneurysm em about 1.5 month ago, radiates up into left side of neck, denies nausea vomiting at this time, VSS. Transition of care: patient was not received from another setting of care. Onset of symptoms was January 20, 2019. Risk Assessment: Do you want to hurt yourself or someone else? Patient reports no desire to harm self or others. Initial Sepsis Screen: Does the patient meet any 2 criteria? No. Patient's initial sepsis screen is negative. Does the patient have a suspected source of infection? No. Patient's initial sepsis screen is negative. Care prior to arrival: Medication(s) given: ASA, 325 mg, x 1. 12:00 Method Of Arrival: EMS: [facility] em 12:00 Acuity: DAVID 2 dm5 Historical: - Allergies: 12:05 No Known Allergies; em - Home Meds: 12:05 amitriptyline 10 mg Oral tab 1 tab once daily [Active]; amlodipine 10 mg tab 1 tab once em daily [Active]; atorvastatin 40 mg Oral tab 1 tab once daily [Active]; carvedilol 6.25 mg Oral tab 1 tab 2 times per day [Active]; lisinopril 20 mg Oral tab 1 tab once daily [Active]; tamsulosin 0.4 mg Oral cp24 1 cap once daily [Active]; - PMHx: 12:05 enlarged prostate; Hypertension; Patient was recently told her has a "aortic anyeurysm em but they don't know where exactly it is. "; TIA; UTI; - PSHx: 12:05 Tonsillectomy; em - Immunization history:: Adult Immunizations up to date. - Social history:: Smoking status: Patient/guardian denies using tobacco. - Ebola Screening: : Patient negative for fever greater than or equal to 101.5 degrees Fahrenheit, and additional compatible Ebola Virus Disease symptoms Patient denies exposure to infectious person Patient denies travel to an Ebola-affected area in the 21 days before illness onset No symptoms or risks identified at this time. Screenin:00 Abuse screen: Denies threats or abuse. Nutritional screening: No deficits noted. em Tuberculosis screening: No symptoms or risk factors identified. Fall Risk None identified. Assessment: 12:00 General: Appears in no apparent distress. comfortable, Behavior is calm, cooperative, em Denies fever. Pain: Complains of pain in chest and left upper quadrant Pain currently is 8 out of 10 on a pain scale. Quality of pain is described as sharp, shooting, Pain began 1 hour ago. Neuro: Level of Consciousness is awake, alert, obeys commands, Oriented to person, place, time, situation, Appropriate for age. Cardiovascular: Heart tones S1 S2 present Capillary refill < 3 seconds Patient's skin is warm and dry. Rhythm is sinus rhythm Chest pain is described as mild, quality is sharp, is located in epigastric area radiates neck began 1 hour prior to arrival. Respiratory: Airway is patent Respiratory effort is even, unlabored, Respiratory pattern is regular, symmetrical, Breath sounds are clear bilaterally. Denies pain with cough. GI: Abdomen is flat, Bowel sounds present X 4 quads. Abd is soft X 4 quads Patient currently denies nausea, vomiting. Derm: Skin is intact, is healthy with good turgor, Skin is pink, warm \\T\\ dry. Musculoskeletal: Capillary refill < 3 seconds, Range of motion: intact in all extremities. 12:15 Reassessment: I agree with previous assessment. hb 13:40 Reassessment: Patient appears in no apparent distress at this time. Patient and/or em family updated on plan of care and expected duration. Pain level reassessed. Patient is alert, oriented x 3, equal unlabored respirations, skin warm/dry/pink. rates pain 5/10 Patient states feeling better. 14:00 Reassessment: Patient appears in no apparent distress at this time. wheeled to CT via em stretcher. 16:02 Reassessment: Patient appears in no apparent distress at this time. Patient and/or em family updated on plan of care and expected duration. Pain level reassessed. Patient is alert, oriented x 3, equal unlabored respirations, skin warm/dry/pink. 18:25 Reassessment: Patient appears in no apparent distress at this time. Patient and/or em family updated on plan of care and expected duration. Pain level reassessed. Patient is alert, oriented x 3, equal unlabored respirations, skin warm/dry/pink. rates pain 4/10 Patient states feeling better. 19:10 Reassessment: Patient appears in no apparent distress at this time. Patient and/or cc3 family updated on plan of care and expected duration. Pain level reassessed. Patient is alert, oriented x 3, equal unlabored respirations, skin warm/dry/pink. Received this male patient from morning shift [facility] as a case of chest pain, neck pain syncopal attack for admission awaiting admission orders. With IV cannula gauge 20 at the right ACV saline locked. Patient denies pain at this time. Patient states feeling better. General: Appears in no apparent distress. comfortable, Behavior is calm, cooperative, appropriate for age. Pain: Denies pain. Neuro: Level of Consciousness is awake, alert, obeys commands, Oriented to person, place, time, situation, Appropriate for age. Cardiovascular: Heart tones S1 S2 present Capillary refill < 3 seconds Patient's skin is warm and dry. Rhythm is sinus rhythm. Respiratory: Airway is patent Respiratory effort is even, unlabored, Respiratory pattern is regular, symmetrical. GI: Abdomen is flat. : No signs and/or symptoms were reported regarding the genitourinary system. EENT: No signs and/or symptoms were reported regarding the EENT system. Derm: Skin is intact, is healthy with good turgor, Skin is pink, warm \\T\\ dry. normal. Musculoskeletal: Circulation, motion, and sensation intact. Range of motion: intact in all extremities. 20:30 Reassessment: Patient appears in no apparent distress at this time. Patient and/or cc3 family updated on plan of care and expected duration. Pain level reassessed. Patient is alert, oriented x 3, equal unlabored respirations, skin warm/dry/pink. Patient is ER hold, charting in [facility]. Patient denies pain at this time. Patient states feeling better. Patient states symptoms have improved. Vital Signs: 12:05 BP 137 / 91; Pulse 83; Resp 18; Pulse Ox 97% on R/A; Weight 90.72 kg; Height 5 ft. 10 em in. (177.80 cm); Pain 8/10; 13:13 BP 153 / 100; Pulse 69; Resp 17; Pulse Ox 98% on R/A; Pain 5/10; em 14:30 BP 169 / 104; Pulse 68; Resp 16; Pulse Ox 100% on R/A; Pain 5/10; em 16:02 BP 163 / 96; Pulse 64; Resp 20; Pulse Ox 100% on R/A; Pain 5/10; em 18:26 BP 138 / 88; Pulse 65; Resp 18; Pulse Ox 97% on R/A; Pain 4/10; em 19:18 BP 130 / 95; Pulse 71; Resp 16 S; Temp 97.6(O); Pulse Ox 100% on R/A; Pain 1/10; cc3 20:30 BP 138 / 89; Pulse 62; Resp 18 S; Pulse Ox 99% on R/A; Pain 0/10; cc3 12:05 Body Mass Index 28.70 (90.72 kg, 177.80 cm) em ED Course: 11:57 Patient arrived in ED. am2 11:58 Nabeel Tovar PA is PHCP. cp 11:58 Marvin Begum MD is Attending Physician. cp 12:00 Jamari Cameron LVN is Primary Nurse. em 12:00 Patient has correct armband on for positive identification. Placed in gown. Bed in low em position. Call light in reach. office automation technician on. Pulse ox on. NIBP on. 12:05 Arm band placed on. em 12:24 Triage completed. dm5 14:09 Initial lab(s) drawn, by me, sent to lab. Inserted saline lock: 22 gauge in right kj1 antecubital area, using aseptic technique. 14:15 CT completed. Patient tolerated procedure well. Patient moved back from CT. bq 14:59 Bahman Jerry DO is Hospitalizing Provider. cp 20:45 Report given to JAMES Ponce. cc3 01/21 07:44 No provider procedures requiring assistance completed. Patient admitted, IV remains in sv place. intact. Administered Medications: 01/20 12:57 Drug: morphine 2 mg {Note: RASS 0.} Route: IVP; Site: right antecubital; sv 15:47 Drug: Aspirin Chewable Tablet 324 mg Route: PO; em 16:00 Follow up: Response: No adverse reaction em 15:47 Drug: Metoprolol 25 mg Route: PO; em 16:30 Follow up: Response: No adverse reaction; Blood sugar is lowered em 15:59 Drug: Rocephin - (cefTRIAXone) 1 grams Route: IVPB; Infused Over: 30 mins; Site: right hb antecubital; 16:00 Follow up: Response: No adverse reaction; IV Status: Completed infusion; IV Intake: 10mlem Intake: 16:00 IV: 10ml; Total: 10ml. em Outcome: 14:59 Decision to Hospitalize by Provider. cp 01/21 07:44 Patient left the ED. sv 07:44 Admitted to ER Hold. Please see [facility] for further documentation. sv 07:44 Condition: stable 07:44 Instructed on the need for admit. Signatures: Lianet Aguilera RN RN dm5 Shahana Bean RN RN sv Tami Bran Jamari Cameron, JUNIOR BUYER JUNIOR BUYER em [place], Nabeel, PA PA cp Celina Salazar RN RN Ani Crespo amClaire Ta cc3 Kelly Dougherty kj1 Corrections: (The following items were deleted from the chart) 01/20 21:15 20:12 Reassessment: Patient appears in no apparent distress at this time. Patient cc3 and/or family updated on plan of care and expected duration. Pain level reassessed. Patient is alert, oriented x 3, equal unlabored respirations, skin warm/dry/pink. Patient denies pain at this time. Patient states feeling better. Patient states symptoms have improved. cc3 21:17 20:30 Reassessment: Patient appears in no apparent distress at this time. Patient cc3 and/or family updated on plan of care and expected duration. Pain level reassessed. Patient is alert, oriented x 3, equal unlabored respirations, skin warm/dry/pink. Patient denies pain at this time. Patient states feeling better. Patient states symptoms have improved. cc3
--- NOTE | 2019-01-20 15:06 | EDPHYS ---
Physician Documentation [facility] Name: Roman Gooden Age: 58 yrs Sex: Male : 1960 Arrival Date: 01/20/2019 Time: 11:57 Bed 26 Private MD: ED Physician Marvin Begum HPI: 01/20 12:15 This 58 yrs old Male presents to ER via EMS with complaints of Abdominal cp Pain, Neck Pain, <24hrs Old. 12:15 The patient has experienced syncope, lost consciousness. cp 12:15 Onset: The symptoms/episode began/occurred 1 hour(s) ago. Duration: The patient has had cp multiple episodes, that last an unknown period of time. Context: occurred at an office, Just prior to the episode the patient experienced no apparent symptoms, Patient reports he at office of friend inspecting for leak from roof, as he was looking upward, next thing he remembers is sitting up against wall. Patient reports having 2 episodes prior to arrival. Now having pain to left side of chest and left side of abdomen. 12:15 Associated injury: Neck: pain, Chest: left side of chest, pain, Abdomen: anterior cp aspect of left lateral abdomen, left upper quadrant and left lower quadrant, pain. Current symptoms: neck pain, chest and abdomen pain. Historical: - Allergies: 12:05 No Known Allergies; em - Home Meds: 12:05 amitriptyline 10 mg Oral tab 1 tab once daily [Active]; amlodipine 10 mg tab 1 tab once em daily [Active]; atorvastatin 40 mg Oral tab 1 tab once daily [Active]; carvedilol 6.25 mg Oral tab 1 tab 2 times per day [Active]; lisinopril 20 mg Oral tab 1 tab once daily [Active]; tamsulosin 0.4 mg Oral cp24 1 cap once daily [Active]; - PMHx: 12:05 enlarged prostate; Hypertension; Patient was recently told her has a "aortic anyeurysm em but they don't know where exactly it is. "; TIA; UTI; - PSHx: 12:05 Tonsillectomy; em - Immunization history:: Adult Immunizations up to date. - Social history:: Smoking status: Patient/guardian denies using tobacco. - Ebola Screening: : Patient negative for fever greater than or equal to 101.5 degrees Fahrenheit, and additional compatible Ebola Virus Disease symptoms Patient denies exposure to infectious person Patient denies travel to an Ebola-affected area in the 21 days before illness onset No symptoms or risks identified at this time. ROS: 12:22 Constitutional: Negative for body aches, chills, fever, poor PO intake. cp 12:22 Eyes: Negative for injury, pain, redness, and discharge. cp 12:22 ENT: Negative for drainage from ear(s), ear pain, sore throat, difficulty swallowing, difficulty handling secretions. 12:22 Cardiovascular: Positive for chest pain, Negative for edema, palpitations. 12:22 Respiratory: Negative for cough, shortness of breath, wheezing. 12:22 Abdomen/GI: Positive for abdominal pain, Negative for nausea and vomiting, diarrhea, constipation, black/tarry stool, rectal bleeding. 12:22 Back: Negative for pain at rest, pain with movement, radiated pain. 12:22 : Negative for urinary symptoms, testicular pain 12:22 Skin: Negative for cellulitis, rash. 12:22 Neuro: Positive for syncope, Negative for altered mental status, dizziness, headache, weakness. 12:22 All other systems are negative. Exam: 12:20 ECG was reviewed by the Attending Physician. cp 12:25 Constitutional: The patient appears in no acute distress, alert, awake, cp non-diaphoretic, non-toxic, well developed, well nourished. 12:25 Head/Face: Normocephalic, atraumatic. cp 12:25 Eyes: Periorbital structures: appear normal, Pupils: equal, round, and reactive to light and accomodation, Extraocular movements: intact throughout, Conjunctiva: normal, no exudate, no injection, Sclera: no appreciated abnormality, Lids and lashes: appear normal, bilaterally. 12:25 ENT: External ear(s): are unremarkable, Ear canal(s): are normal, clear, TM's: bulging, is not appreciated, bilaterally, dullness, bilaterally, erythema, is not appreciated, bilaterally, Nose: is normal, Mouth: Lips: moist, Oral mucosa: pink and intact, moist, Posterior pharynx: is normal, airway is patent, no erythema, no exudate. 12:25 Neck: C-spine: C-collar placed in ED, ROM/movement: is normal, is supple, no range of motions limitations, no meningismus, no nuchal rigidity. 12:25 Chest/axilla: Inspection: normal, Palpation: is normal, no crepitus, no tenderness. 12:25 Cardiovascular: Rate: normal, Rhythm: regular, Pulses: Pulses are 2+ in right radial artery and left radial artery. Edema: is not appreciated, JVD: is not appreciated. 12:25 Respiratory: the patient does not display signs of respiratory distress, Respirations: normal, no use of accessory muscles, no retractions, no splinting, no tachypnea, Breath sounds: are clear throughout, no decreased breath sounds, no stridor, no wheezing. 12:25 Abdomen/GI: Inspection: abdomen appears normal, Bowel sounds: active, all quadrants, Palpation: soft, in all quadrants, mild abdominal tenderness, in the anterior aspect of left lateral abdomen, left upper quadrant and left lower quadrant, rebound tenderness, is not appreciated, voluntary guarding, is not appreciated, involuntary guarding, is not appreciated. 12:25 Back: pain, is absent, ROM is normal. 12:25 Skin: cellulitis, is not appreciated, no rash present. 12:25 Neuro: Orientation: to person, place \\T\\ time. Mentation: is normal, Cerebellar function: is grossly normal, Motor: moves all fours, strength is normal, Sensation: is normal. Vital Signs: 12:05 BP 137 / 91; Pulse 83; Resp 18; Pulse Ox 97% on R/A; Weight 90.72 kg; Height 5 ft. 10 em in. (177.80 cm); Pain 8/10; 13:13 BP 153 / 100; Pulse 69; Resp 17; Pulse Ox 98% on R/A; Pain 5/10; em 14:30 BP 169 / 104; Pulse 68; Resp 16; Pulse Ox 100% on R/A; Pain 5/10; em 16:02 BP 163 / 96; Pulse 64; Resp 20; Pulse Ox 100% on R/A; Pain 5/10; em 18:26 BP 138 / 88; Pulse 65; Resp 18; Pulse Ox 97% on R/A; Pain 4/10; em 19:18 BP 130 / 95; Pulse 71; Resp 16 S; Temp 97.6(O); Pulse Ox 100% on R/A; Pain 1/10; cc3 20:30 BP 138 / 89; Pulse 62; Resp 18 S; Pulse Ox 99% on R/A; Pain 0/10; cc3 12:05 Body Mass Index 28.70 (90.72 kg, 177.80 cm) em MDM: 12:01 Patient medically screened. cp 15:00 Data reviewed: vital signs, nurses notes, lab test result(s), EKG, radiologic studies, cp plain films, I have discussed the patient's presentation/case with the attending Emergency Department Physician; and as a result, I will admit patient. 15:00 Test interpretation: by ED physician or midlevel provider: ECG, plain radiologic cp studies. 01/20 12:11 Order name: Basic Metabolic Panel 01/20 12:11 Order name: CBC with Diff 01/20 12:11 Order name: LFT's 01/20 12:11 Order name: Magnesium 01/20 12:11 Order name: NT PRO-BNP 01/20 12:11 Order name: PT-INR 01/20 12:11 Order name: Troponin (emerg Dept Use Only) 01/20 12:11 Order name: Lipase 01/20 12:34 Order name: CBC with Automated Diff; Complete Time: 13:05 EDMS 01/20 13:05 Interpretation: Normal except: RDW 15.4. 01/20 12:35 Order name: Protime (+INR); Complete Time: 13:05 EDMS 01/20 12:49 Order name: Basic Metabolic Panel; Complete Time: 13:05 EDMS 01/20 13:31 Interpretation: Normal except: CL 111. cp 01/20 12:49 Order name: Liver (Hepatic) Function; Complete Time: 13:05 EDMS 01/20 12:49 Order name: Troponin (Emerg Dept Use Only); Complete Time: 13:05 EDMS 01/20 12:49 Order name: NT PRO-BNP; Complete Time: 13:05 EDMS 01/20 12:11 Order name: XRAY Chest (1 view) 01/20 12:49 Order name: Magnesium; Complete Time: 13:05 EDMS 01/20 12:49 Order name: Lipase; Complete Time: 13:05 EDMS 01/20 13:06 Order name: CT Aorta for Dissection 01/20 13:06 Order name: CT Head C Spine cp 01/20 13:55 Order name: Urine Microscopic Only hb 01/20 13:56 Order name: RAD; Complete Time: 14:42 EDMS 01/20 13:56 Order name: Urine Dipstick--Ancillary (enter results) eb 01/20 14:08 Order name: Urine Dipstick-Ancillary; Complete Time: 14:42 EDMS 01/20 14:42 Interpretation: Normal except: UPH 7.5; U NIT POSITIVE; UESTR 1+. cp 01/20 14:25 Order name: CT; Complete Time: 14:42 EDMS 01/20 14:32 Order name: CT; Complete Time: 14:42 EDMS 01/20 15:11 Order name: Urine Microscopic Only EDMS 01/20 23:19 Order name: Troponin I EDMS 01/21 04:36 Order name: CBC with Automated Diff EDMS 01/21 04:37 Order name: Basic Metabolic Panel EDMS 01/21 04:42 Order name: Troponin I EDMS 01/20 12:11 Order name: EKG; Complete Time: 12:13 cp 01/20 12:11 Order name: Cardiac monitoring; Complete Time: 12:44 cp 01/20 12:11 Order name: EKG - Nurse/Tech; Complete Time: 12:44 cp 01/20 12:11 Order name: IV Saline Lock; Complete Time: 12:44 cp 01/20 12:11 Order name: Labs collected and sent; Complete Time: 12:44 cp 01/20 12:11 Order name: O2 Per Protocol; Complete Time: 12:44 cp 01/20 12:11 Order name: O2 Sat Monitoring; Complete Time: 12:44 cp 01/20 13:55 Order name: Urine Dipstick-Ancillary (obtain specimen); Complete Time: 13:55 hb 01/20 15:25 Order name: Diet Regular; Complete Time: 15:25 hb EC:20 Rate is 80 beats/min. Rhythm is regular. ME interval is normal. QRS interval is normal. cp QT interval is normal. Interpreted by me. Reviewed by me. Administered Medications: 12:57 Drug: morphine 2 mg {Note: RASS 0.} Route: IVP; Site: right antecubital; sv 15:47 Drug: Aspirin Chewable Tablet 324 mg Route: PO; em 16:00 Follow up: Response: No adverse reaction em 15:47 Drug: Metoprolol 25 mg Route: PO; em 16:30 Follow up: Response: No adverse reaction; Blood sugar is lowered em 15:59 Drug: Rocephin - (cefTRIAXone) 1 grams Route: IVPB; Infused Over: 30 mins; Site: right hb antecubital; 16:00 Follow up: Response: No adverse reaction; IV Status: Completed infusion; IV Intake: 10mlem Disposition: 01/21 08:46 Co-signature as Attending Physician, Marvin Begum MD I agree with the assessment and kdr plan of care. Disposition: 01/20/19 14:59 Hospitalization ordered by Bahman Jerry for Observation. Preliminary diagnosis are Chest pain, unspecified, Syncope and collapse. - Bed requested for Telemetry/MedSurg (observation). - Status is Observation. sv - Condition is Stable. - Problem is new. - Symptoms have improved. UTI on Admission? Yes Signatures: Dispatcher [employer] Shahana Allred RN RN Marvin Hernandez MD MD [facility] Jamari Cameron, TECHNICAL PLANNER TECHNICAL PLANNER em Dayanara Carter RN RN bb Nabeel Tovar PA PA cp Baxter, Heather RN RN Eli Reinoso mw2 Corrections: (The following items were deleted from the chart) 01/20 22:11 14:59 Hospitalization Ordered by Bahman Jerry DO for Observation. Preliminary bb diagnosis is Chest pain, unspecified; Syncope and collapse. Bed requested for Telemetry/MedSurg (observation). Status is Observation. Condition is Stable. Problem is new. Symptoms have improved. UTI on Admission? Yes. cp 01/21 06:57 01/20 22:11 01/20/2019 14:59 Hospitalization Ordered by Bahman Jerry DO for mw2 Observation. Preliminary diagnosis is Chest pain, unspecified; Syncope and collapse. Bed requested for [facility] ER HOLD. Status is Observation. Condition is Stable. Problem is new. Symptoms have improved. UTI on Admission? Yes. bb 01/21 07:44 06:57 01/20/2019 14:59 Hospitalization Ordered by Bahman Jerry DO for Observation. sv Preliminary diagnosis is Chest pain, unspecified; Syncope and collapse. Bed requested for Telemetry/MedSurg (observation). Status is Observation. Condition is Stable. Problem is new. Symptoms have improved. UTI on Admission? Yes. mw2
[2019-01-20 15:10] LABS: Urine Amorphous Sediment 1+ /HPF (NONE SEEN); Urine Bacteria >50 /HPF (NONE SEEN); Urine Culture Reflex Order REFLEXED; Urine RBC <5 /HPF (NONE SEEN)
[2019-01-20] MEDS ORDERED: ASPIRIN 81 MG CHEWABLE TABLET ONE (15:37)
[2019-01-20] MEDS ORDERED: METOPROLOL TAR 25 MG TAB ONE (15:37)
[2019-01-20] MEDS ORDERED: CEFTRIAXONE/SWI 1gm 1 GM/10 ML SYR ONE (15:37)
--- NOTE | 2019-01-20 19:31 | P.HP ---
Certification for Inpatient Patient admitted to: Observation With expected LOS: <2 Midnights Patient will require the following post-hospital care: None Practitioner: I am a practitioner with admitting privileges, knowledge of patient current condition, hospital course, and medical plan of care. Services: Services provided to patient in accordance with Admission requirements found in Title 42 Section 412.3 of the Code of Federal Regulations Patient History Date of Service: 01/20/19 Primary Care Provider: None Reason for admission: syncope, chest pain History of Present Illness: Pt states he was looking up at the ceiling and awoke on the ground next to the wall. Describes seeing black spots prior to syncopal episode. Similar symptoms a few months ago. States he is experiencing some chest discomfort post syncope Allergies No Known Allergies Allergy (Unverified 08/22/17 18:05) Home medications list reviewed: Yes Home Medications: Amitriptyline [Elavil*] 10 mg PO BEDTIME 12/03/18 Amlodipine [Norvasc*] 10 mg PO DAILY #30 tab 12/03/18 Atorvastatin Calcium [Lipitor] 40 mg PO BEDTIME #30 tablet 12/03/18 Carvedilol [Coreg] 12.5 mg PO BID #60 tab 12/03/18 Cyclobenzaprine [Flexeril*] 10 mg PO DAILY 12/03/18 Lisinopril [Prinivil*] 20 mg PO DAILY #30 tab 12/03/18 Meloxicam 15 mg PO DAILY 12/03/18 Tamsulosin [Flomax*] 0.4 mg PO DAILY #30 cap 12/03/18 - Past Medical/Surgical History Has patient received pneumonia vaccine in the past: No Diabetic: No -: Hypertension -: TIA -: UTI -: Urinary retention -: Ankle -: Tonsillectomy -: Eye surgery - Family History Mother -: Heart disease Father -: Liver disease - Social History Alcohol use: No CD- Drugs: No Caffeine use: No Review of Systems Eyes: Vision Change, Other (black spots in visual [place] prior to syncope) ENT: Unremarkable Respiratory: Unremarkable Cardiovascular: Chest Pain Gastrointestinal: Other (pain to left lateral side x several months) Genitourinary: Unremarkable Musculoskeletal: Unremarkable Integumentary: Unremarkable Neurological: As per HPI Physical Examination - Vital Signs Temperature: 97.6 F Blood Pressure: 130/95 Pulse: 71 Respirations: 16 Pulse Ox (%): 100 - Physical Exam General: Alert, Oriented x3 HEENT: Atraumatic, Normocephalic, Other (mild abrasions to right forehead) Neck: JVD not distended Respiratory: Clear to auscultation bilaterally, Normal air movement Cardiovascular: No edema, Normal pulses, Regular rate/rhythm Capillary refill: <2 Seconds Gastrointestinal: Normal bowel sounds, Tenderness (left lateral lower abd) Musculoskeletal: No clubbing, No swelling Integumentary: No rashes Neurological: Normal speech, Normal tone, Normal affect External genitalia: Deferred Rectal: Deferred - Studies Laboratory Data (last 24 hrs) 01/20/19 12:19: PT 11.7, INR 0.99 01/20/19 12:19: WBC 6.0, Hgb 14.0, Hct 41.6, Plt Count 224 01/20/19 12:19: Sodium 143, Potassium 3.6, BUN 10, Creatinine 0.81, Glucose 106 , Magnesium 2.3, Total Bilirubin 0.7, AST 16, ALT 21, Alkaline Phosphatase 82, Lipase 104 Assessment and Plan - Problems (Diagnosis) (1) Chest pain Onset Date: 01/10/18 Current Visit: No Status: Acute Plan: serial troponin evaluation, repeat echo 2nd to increased bnp/htn, consult cardiology Qualifiers: Chest pain type: precordial pain Qualified Code(s): R07.2 - Precordial pain (2) Syncope Onset Date: 05/02/18 Current Visit: No Status: Acute Qualifiers: Syncope type: unspecified Qualified Code(s): R55 - Syncope and collapse - Advance Directives Does patient have a Living Will: No Does patient have a Durable POA for Healthcare: No
[2019-01-20] MEDS: CARVEDILOL 6.25 MG TAB PO SCH (21:52)
[2019-01-20] MEDS ORDERED: ACETAMINOPHEN 500 MG TAB PO PRN (21:52)
[2019-01-20] MEDS ORDERED: ATORVASTATIN 40 MG TAB PO SCH (21:52)
[2019-01-20] MEDS ORDERED: LISINOPRIL 20 MG TAB PO ONE (21:52)
[2019-01-20] MEDS ORDERED: AMITRIPTYLINE 10 MG TAB PO SCH (21:52)
[2019-01-20] MEDS ORDERED: ATORVASTATIN 20 MG TAB ONE (22:05)
[2019-01-20] MEDS ORDERED: AMITRIPTYLINE 10 MG TAB ONE (22:19)
[2019-01-21 04:28] LABS: Absolute Lymphocytes (CBC) 1.7 K/uL (0.7-4.9); Basophils % 0.6 % (0-1.3); Hematocrit 42.4 % (39.6-49.0); Lymphocytes % 28.8 % (15.3-44.8); MPV 8.9 fL (7.6-11.3)
[2019-01-21 04:36] LABS: BUN Blood Urea Nitrogen 14 mg/dL (7-18); Bicarbonate 26 mmol/L (21-32); Glucose Level 94 mg/dL (74-106); Potassium 4.1 mmol/L (3.5-5.1); Sodium Level 144 mmol/L (136-145)
[2019-01-21 04:52] VITALS: BMI 13.0
[2019-01-21 07:59] VITALS: O2SAT 99
[2019-01-21] MEDS: CARVEDILOL 6.25 MG TAB PO SCH (08:35)
--- NOTE | 2019-01-21 08:50 | RAD REPORT ---
EXAM DESCRIPTION: USCarotid Artery Bilateral01/20/2019 10:48 pm CLINICAL HISTORY: Syncope COMPARISON: None FINDINGS: The velocity of the right internal carotid artery equals 47 cm/sec. The right ICA/CCA rati o 0.7 The velocity of the left internal carotid artery equals 57 cm/sec. The left ICA/CCA ratio 1.1 Mild plaque is present within the carotid arteries. The vertebral arteries demonstrate antegrade flow IMPRESSION: Mild plaque within the carotid arteries without evidence of a hemodynamically significan t stenosis NASCET criteria used. Mild 0-49% stenosis Moderate 50-69% stenosis Severe 70-99% stenosis
[2019-01-21] MEDS ORDERED: AMLODIPINE 10 MG TAB PO SCH (09:00)
[2019-01-21] MEDS ORDERED: ASPIRIN EC 81 MG TAB PO SCH ×2 (09:00)
[2019-01-21] MEDS ORDERED: TAMSULOSIN 0.4 MG SR CAP PO SCH (09:00)
--- NOTE | 2019-01-21 11:35 | EKG ---
Test Date: 2019-01-20 Test Time: 12:13:17 Environmental Science Instructor: SARAH MEASUREMENT RESULTS: Intervals: Rate: 80 OK: 190 QRSD: 76 QT: 426 QTc: 491 Walker: P: 18 OK: 190 QRS: 4 T: 31 INTERPRETIVE STATEMENTS: Normal sinus rhythm Prolonged QT Abnormal ECG Compared to ECG 12/01/2018 10:20:37 Prolonged QT interval now present T-wave abnormality no longer present Possible ischemia no longer present Electronically Signed On 01-21-19 11:31:26 CDT by Musa Wiggins
[2019-01-21 13:30] VITALS: BP 177/85; TEMP 97
--- NOTE | 2019-01-21 14:54 | P.SSS ---
Patient History Date of Service: 01/21/19 Primary Care Provider: None Reason for admission: syncope, chest pain History of Present Illness: 50-year-old male with significant past medical history of hypertension CAD who was recently worked up extensively for cardiac chest pain was admitted to the hospital for chest pain and syncopal episode Allergies No Known Allergies Allergy (Unverified 08/22/17 18:05) Home Medications: Amitriptyline [Elavil*] 10 mg PO BEDTIME 12/03/18 Amlodipine [Norvasc*] 10 mg PO DAILY #30 tab 12/03/18 Atorvastatin Calcium [Lipitor] 40 mg PO BEDTIME #30 tablet 12/03/18 Carvedilol [Coreg*] 12.5 mg PO BID #60 tab 12/03/18 Lisinopril [Prinivil*] 20 mg PO DAILY #30 tab 12/03/18 Tamsulosin [Flomax*] 0.4 mg PO DAILY #30 cap 12/03/18 - Past Medical/Surgical History Has patient received pneumonia vaccine in the past: No Diabetic: No -: Hypertension -: TIA -: UTI -: Urinary retention -: Ankle -: Tonsillectomy -: Eye surgery - Family History Mother -: Heart disease Father -: Liver disease - Social History Smoking Status: Never smoker Alcohol use: No CD- Drugs: No Caffeine use: No Review of Systems 10-point ROS is otherwise unremarkable Physical Examination - Vital Signs Temperature: 97.0 F Blood Pressure: 177/85 Pulse: 79 Respirations: 20 Pulse Ox (%): 97 - Physical Exam General: Alert, In no apparent distress HEENT: Atraumatic, PERRLA, Mucous membr. moist/pink, EOMI, Sclerae nonicteric Neck: Supple, 2+ carotid pulse no bruit, No LAD, Without JVD or thyroid abnormality Respiratory: Clear to auscultation bilaterally, Normal air movement Cardiovascular: Regular rate/rhythm, Normal S1 S2 Gastrointestinal: Normal bowel sounds, No tenderness Musculoskeletal: No tenderness Integumentary: No rashes Neurological: Normal gait, Normal speech, Normal strength at 5/5 x4 extr, Normal tone, Normal affect Lymphatics: No axilla or inguinal lymphadenopathy - Diagnosis (Problem(s)) (1) Chest pain Onset Date: 01/10/18 Status: Resolved Qualifiers: Chest pain type: precordial pain Qualified Code(s): R07.2 - Precordial pain (2) Syncope Onset Date: 05/02/18 Status: Resolved Qualifiers: Syncope type: unspecified Qualified Code(s): R55 - Syncope and collapse (3) Hypertension Onset Date: 01/10/18 Status: Chronic Qualifiers: Hypertension type: essential hypertension Qualified Code(s): I10 - Essential (primary) hypertension Treatment Summary: Overall during the hospital stay patient remained stable Patient was initially admitted to the hospital for syncopal workup after he was having dizziness at home. Patient was evaluated here in the hospital by cardiology. Given the fact that patient had recent echocardiogram done and extensive cardiac workup done. Cardiology recommended the patient can be safely discharged home as a syncopal was likely ankle symptoms. Patient was educated extensively regarding the vasovagal syncope and was discharged home under stable condition was asked to follow up with primary care provider in about 1-2 days post discharge. Patient was able to ambulate and tolerate diet when discharged home. - Disposition Disposition: ROUTINE DISCHARGE Condition: FAIR Diet: Regular Activity: Ad otilia
--- NOTE | 2019-01-21 21:48 | CON ---
Date of Consultation: 01/21/[address] patient admitted to Dr. Kohler's service on 01/20/2019. I saw the patient on 01/21/2019. Reason For Consultation: Chest pain. History Of Present Illness: Mr. Gooden is a 58-year-old male. I have seen him recently. He had a cat heterization approximately a year ago showing mild stenosis in the distal RCA. LAD and circumflex we re normal. In November of 2018, only 2 months ago, he had a normal echocardiogram and a normal Lexiscan. He comes in with multiple symptoms including left upper quadrant pain in his abdomen, left neck herber n, back pain, diffuse abdominal pain in the periumbilical region. No nausea, vomiting, diaphoresis, PND, orthopnea, pedal edema, palpitations, or syncope. He denied any fever or chills. By the time I saw him, he has already ruled out for an VA. He had evidence of UTI. Past Medical History: Hypertension, dyslipidemia, benign prostatic hypertrophy, and a TIA in 2016. Allergies: NONE. Review of Systems: Negative. Social History: Negative. Family History: Noncontributory. Medications: At home include Norvasc, Elavil, Coreg, Lipitor, lisinopril, and Flomax. Physical Examination: Vital Signs: Stable, afebrile. General: No acute distress, sinus rhythm. HEENT: Negative. Neck: Supple with no bruit, lymphadenopathy, JVD, or thyromegaly. Chest: Clear to auscultation and percussion. Cardiac: Revealed a regular rhythm and rate. No murmurs, gallops, or rubs. Abdomen: Benign. Extremities: Revealed no clubbing, cyanosis, or edema. Diagnostic Data: He had a UTI. BNP was 909. He has a 4.4 ascending aorta dilatation by CT scan and that is chronic. Normal echo and Lexiscan in November of 2018. Minimal coronary artery disease in Jan. Impression And Plan: 1.Atypical chest pain, most likely musculoskeletal or gastrointestinal. A carotid Doppler is pendin g because of his dizziness and his neck pain. Echocardiogram is pending. I do not recommend any fur ther cardiac workup at this point. GI workup may be reasonable. 2.Minimal coronary artery disease by catheterization. Negative stress test 2 months ago. 3.Dilated ascending aorta at 4.4 cm, just needs followup every 2 years. 4.Hypertension. 5.Dyslipidemia. 6.Benign prostatic hypertrophy. 7.Transient ischemic attack in 2016. I would continue present regimen. See what the echo and carotid show. Consider GI consult. I will continue to follow him as needed. VIRGIL/RENEE Voice ID: [id number] Report ID: [id number]
== END 2019-01-21 13:25 | disposition home or self-care (01) ==
LOC: ER 11:56 → INTOOBSV 15:23 → ERHOLD 15:23 → 2ND 01-21 07:48
PROVIDERS: ADMIT Family Medicine; ATTEND Family Medicine
DX: R07.2 Precordial pain (principal); R55 Syncope and collapse; I10 Essential (primary) hypertension; I25.10 Atherosclerotic heart disease of native coronary artery without angina pectoris; E78.5 Hyperlipidemia, unspecified; N40.0 Benign prostatic hyperplasia without lower urinary tract symptoms; Z86.73 Personal history of transient ischemic attack (TIA), and cerebral infarction without residual deficits
CPT/HCPCS: 93005; 87088; 85025 ×2; 87086; 80048 ×2; 36415; 83735; 85610; 80076; 87077; 87186; 84484 ×3; 83690; 83880; 70450; 72125; 71275; 74175; 71045; 93880; 96375; 96374; 99285; Q9967; J2270; J0696; G0378 ×3; 81003; 81015

== ENCOUNTER 2019-02-19 10:38 | Observation (INO) | payer OTHER ==
[2019-02-19] MEDS ORDERED: NITROGLYCERIN 1 GM PKT TD ONE (11:16)
--- NOTE | 2019-02-19 11:25 | RAD REPORT ---
EXAM DESCRIPTION: RAD - Chest Single View - 02/19/2019 11:19 am CLINICAL HISTORY: CHEST PAIN Chest pain. COMPARISON: Chest Single View dated 01/20/2019; Chest Single View dated 12/01/2018; Chest Single View dated 10/13/2018; Chest Single View dated 04/30/2018 FINDINGS: Portable technique limits examination quality. The lungs are grossly clear. The heart is normal in size. Mildly tortuous thoracic aorta noted. No di splaced fractures.
[2019-02-19 11:31] LABS: Protime INR 1.03
[2019-02-19 11:37] LABS: Absolute Lymphocytes (CBC) 1.6 K/uL (0.7-4.9); Basophils % 0.9 % (0-1.3); Hematocrit 40.3 % (39.6-49.0); Lymphocytes % 18.8 % (15.3-44.8); MPV 9.3 fL (7.6-11.3); RBC Red Blood Cell Count 4.65 M/uL (4.33-5.43)
[2019-02-19] MEDS ORDERED: ONDANSETRON 4 MG/2 ML VIAL ONE (11:39)
[2019-02-19] MEDS ORDERED: MORPHINE 4 MG/ML SYR ONE (11:39)
[2019-02-19 11:45] LABS: ALT/SGPT 18 U/L (12-78); AST/SGOT 13 U/L (15-37); Albumin 3.5 g/dL (3.4-5.0); Alkaline Phosphatase 79 U/L (45-117); BUN Blood Urea Nitrogen 12 mg/dL (7-18); Bicarbonate 24 mmol/L (21-32); Bilirubin Direct 0.3 mg/dL (0-0.2); Bilirubin Total 1.2 mg/dL (0.2-1.0); Glucose Level 91 mg/dL (74-106); Magnesium 2.3 mg/dL (1.8-2.4); NT PRO-BNP 319 pg/mL (<125); Potassium 3.2 mmol/L (3.5-5.1); Protein, Total 6.7 g/dL (6.4-8.2); Sodium Level 143 mmol/L (136-145); Troponin (Emerg Dept Use Only) < 0.02 ng/mL (0.0-0.045)
--- NOTE | 2019-02-19 12:11 | EKG ---
Test Date: 2019-02-19 Test Time: 10:39:07 Craps Dealer: SAMEER MEASUREMENT RESULTS: Intervals: Rate: 82 MA: 194 QRSD: 80 QT: 404 QTc: 472 [place]: P: 30 MA: 194 QRS: 57 T: 44 INTERPRETIVE STATEMENTS: Normal sinus rhythm Nonspecific T wave abnormality Prolonged QT Abnormal ECG Compared to ECG 01/20/2019 12:13:17 T-wave abnormality now present Electronically Signed On 02-19-19 12:10:03 CDT by Musa Wiggins
--- NOTE | 2019-02-19 12:21 | RAD REPORT ---
EXAM DESCRIPTION: CTAbdomen Pelvis W Contrast - 02/19/2019 12:11 pm CLINICAL HISTORY: Abdominal pain. ABD PAIN COMPARISON: Angio Aorta For Dissection dated 01/20/2019 TECHNIQUE: Biphasic CT imaging of the abdomen and pelvis was performed with 100 ml non-ionic IV cont rast. All CT scans are performed using dose optimization technique as appropriate and may include automated exposure control or mA/KV adjustment according to patient size. FINDINGS: Mild linear subsegmental atelectasis is present in both posterior lung bases. The liver, spleen, pancreas, adrenal glands and kidneys are within normal limits. Stable small hepati c hypodensities, likely cysts. No bowel obstruction, free air, free fluid or abscess. Mild sigmoid diverticulosis is present without diverticulitis. The appendix is normal. No evidence of significant lymphadenopathy. No suspicious bony findings. Significant prostatomegaly is present. IMPRESSION: No acute intra-abdominal or pelvic finding. Significant prostatomegaly.
--- NOTE | 2019-02-19 13:25 | EDPHYS ---
Physician Documentation [facility] Name: Roman Gooden Age: 59 yrs Sex: Male : 1960 Arrival Date: 02/19/2019 Time: 10:46 Bed 13 Private MD: ED Physician Jose Francois HPI: 02/19 11:27 This 59 yrs old Male presents to ER via EMS with complaints of Chest Pain > tw4 30 y/o. 11:27 The patient or guardian reports chest pain that is located primarily in the anterior tw4 chest wall, left. Onset: today. The pain does not radiate. Associated signs and symptoms: The patient has no apparent associated signs or symptoms. The chest pain is described as dull. Duration: The patient or guardian reports a single episode. Severity of pain: At its worst the pain was moderate in the emergency department the pain is unchanged. The patient has not experienced similar symptoms in the past. Historical: - Allergies: 10:50 No Known Allergies; jl7 - Home Meds: 10:50 amitriptyline 10 mg Oral tab 1 tab once daily [Active]; amlodipine 10 mg tab 1 tab once jl7 daily [Active]; atorvastatin 40 mg Oral tab 1 tab once daily [Active]; carvedilol 6.25 mg Oral tab 1 tab 2 times per day [Active]; lisinopril 20 mg Oral tab 1 tab once daily [Active]; tamsulosin 0.4 mg Oral cp24 1 cap once daily [Active]; - PMHx: 10:50 enlarged prostate; Hypertension; Patient was recently told her has a "aortic anyeurysm jl7 but they don't know where exactly it is. "; TIA; UTI; - PSHx: 10:50 Tonsillectomy; jl7 - Immunization history:: Adult Immunizations unknown. - Social history:: Smoking status: Patient/guardian denies using tobacco. - Ebola Screening: : No symptoms or risks identified at this time. ROS: 11:27 Constitutional: Negative for fever, chills, and weight loss, Eyes: Negative for injury, tw4 pain, redness, and discharge, Respiratory: Negative for shortness of breath, cough, wheezing, and pleuritic chest pain. 11:27 MS/Extremity: Negative for injury and deformity, Skin: Negative for injury, rash, and discoloration, Neuro: Negative for headache, weakness, numbness, tingling, and seizure. 11:27 Cardiovascular: Positive for chest pain, Negative for edema, orthopnea, palpitations, paroxysmal nocturnal dyspnea. 11:27 Abdomen/GI: Positive for abdominal pain, Negative for nausea and vomiting, nausea, vomiting, and diarrhea, nausea, vomiting, diarrhea. Exam: 11:27 Constitutional: This is a well developed, well nourished patient who is awake, alert, tw4 and in no acute distress. Head/Face: Normocephalic, atraumatic. Chest/axilla: Normal chest wall appearance and motion. Nontender with no deformity. No lesions are appreciated. Cardiovascular: Regular rate and rhythm with a normal S1 and S2. No gallops, murmurs, or rubs. Normal PMI, no JVD. No pulse deficits. Respiratory: Lungs have equal breath sounds bilaterally, clear to auscultation and percussion. No rales, rhonchi or wheezes noted. No increased work of breathing, no retractions or nasal flaring. Abdomen/GI: Soft, non-tender, with normal bowel sounds. No distension or tympany. No guarding or rebound. No evidence of tenderness throughout. Skin: Warm, dry with normal turgor. Normal color with no rashes, no lesions, and no evidence of cellulitis. MS/ Extremity: Pulses equal, no cyanosis. Neurovascular intact. Full, normal range of motion. Neuro: Awake and alert, GCS 15, oriented to person, place, time, and situation. Cranial nerves II-XII grossly intact. Motor strength 5/5 in all extremities. Sensory grossly intact. Cerebellar exam normal. Normal gait. Vital Signs: 10:43 BP 142 / 102 RA; Pulse 81; Resp 19 S; Pulse Ox 97% on R/A; Pain 8/10; jl7 10:43 BP 137 / 96 LA; jl7 11:00 BP 133 / 107; Pulse 82; Resp 16 S; Pulse Ox 98% on R/A; jl7 11:25 BP 165 / 107; Pulse 75; Resp 16 S; Pulse Ox 95% on R/A; jl7 11:40 BP 144 / 97; Pulse 81; Resp 20 S; Pulse Ox 95% on R/A; Pain 8/10; jl7 13:42 Weight 90.72 kg (R); jl7 13:50 BP 156 / 98; Pulse 71; Resp 16 S; Pulse Ox 100% on R/A; jl7 14:50 BP 153 / 97; Pulse 74; Resp 16 S; Pulse Ox 100% on R/A; jl7 MDM: 10:52 Patient medically screened. tw4 13:24 Differential diagnosis: abnormal EKG, acute myocardial infarction, pulmonary embolus, tw4 stable angina, thoracic aortic disection, unstable angina. Data reviewed: vital signs, nurses notes. Data reviewed: lab test result(s), cardiac enzymes, CPK, troponin i, CBC, white blood cell count, hemoglobin, hematocrit, platelets, electrolytes, sodium, potassium, chloride, serum bicarbonate, BUN, creatinine, serum glucose, EKG. Data interpreted: Pulse oximetry: Interpretation:. Counseling: I had a detailed discussion with the patient and/or guardian regarding: the historical points, exam findings, and any diagnostic results supporting the discharge/admit diagnosis, lab results, radiology results. Physician consultation: Anitra Stevenson MD was contacted at 13:09, regarding admission, to the telemetry unit. patient's condition, and will see patient in ED, in inpatient room. 02/19 11:02 Order name: Basic Metabolic Panel; Complete Time: 12:55 4 02/19 12:55 Interpretation: Normal except: K 3.2; CL 113. tw02/19 11:02 Order name: CBC with Diff; Complete Time: 12:55 4 02/19 12:55 Interpretation: Normal except: RDW 15.5. 02/19 11:02 Order name: LFT's; Complete Time: 12:55 4 02/19 12:55 Interpretation: Normal except: AST 13; BILIT 1.2; BILID 0.3. 02/19 11:02 Order name: Magnesium; Complete Time: 12:55 4 02/19 12:56 Interpretation: Within normal limits: MG 2.3. 02/19 11:02 Order name: NT PRO-BNP; Complete Time: 12:55 tw4 02/19 12:55 Interpretation: Within normal limits: NT PRO-BNP 319. 02/19 11:02 Order name: PT-INR; Complete Time: 12:55 4 02/19 12:56 Interpretation: Within normal limits: PT 12.1. 02/19 11:02 Order name: Troponin (emerg Dept Use Only); Complete Time: 12:55 4 02/19 12:56 Interpretation: Within normal limits: TROPED < 0.02. 02/19 11:02 Order name: XRAY Chest (1 view); Complete Time: 12:55 [facility] 02/19 12:56 Interpretation: No acute disease. 02/19 11:02 Order name: EKG; Complete Time: 11:03 02/19 11:16 Order name: CT Abd/Pelvis - IV Contrast Only; Complete Time: 12:55 4 02/19 12:56 Interpretation: No acute disease. 02/19 11:02 Order name: Cardiac monitoring; Complete Time: 11:11 [facility] 02/19 11:02 Order name: EKG - Nurse/Tech; Complete Time: 11:11 02/19 11:02 Order name: IV Saline Lock; Complete Time: 11:11 [facility] 02/19 11:02 Order name: Labs collected and sent; Complete Time: 11:23 02/19 11:02 Order name: O2 Per Protocol; Complete Time: 11:11 02/19 11:02 Order name: O2 Sat Monitoring; Complete Time: 11:11 02/19 13:07 Order name: EKG - Nurse/Tech; Complete Time: 13:43 02/19 13:07 Order name: EKG; Complete Time: 13:07 7 EC:26 Rate is 82 beats/min. Rhythm is regular. QRS Solomon is Normal. OR interval is normal. QRS tw4 interval is normal. No Q waves. T waves are Flattened in leads III, aVL. No ST changes noted. Clinical impression: NSR w/ Non-specific ST/T Changes and Abnormal EKG without significant change. Interpreted by me. Reviewed by me. Administered Medications: 11:27 Drug: Nitro-Bid Ointment 2 % 1 inches Route: Transdermal; Site: anterior chest wall; jl7 11:40 Drug: Zofran 4 mg Route: IVP; Site: right antecubital; jl7 12:00 Follow up: Response: No adverse reaction jl7 11:42 Drug: morphine 4 mg Route: IVP; Site: right antecubital; jl7 12:00 Follow up: Response: No adverse reaction; Pain is decreased jl7 13:49 Drug: Lovenox 1 mg/kg Route: Sub-Q; Site: right lower abdomen; jl7 15:11 Follow up: Response: No adverse reaction jl7 Disposition: 02/19/19 13:24 Hospitalization ordered by Anitra Stevenson for Observation. Preliminary diagnosis is Unstable angina. - Bed requested for Telemetry/MedSurg (observation). - Status is Observation. jl7 - Condition is Stable. - Problem is new. - Symptoms have improved. UTI on Admission? No Signatures: Dispatcher [employer] EDMS Nissa Brady RN RN dw Ryan Trammell RN RN jl7 Jose Francois MD MD tw4 Corrections: (The following items were deleted from the chart) 14:41 13:24 Hospitalization Ordered by Anitra Stevenson MD for Observation. Preliminary diagnosis dw is Unstable angina. Bed requested for Telemetry/MedSurg (observation). Status is Observation. Condition is Stable. Problem is new. Symptoms have improved. UTI on Admission? No. tw4 15:21 14:41 02/19/2019 13:24 Hospitalization Ordered by Anitra Stevenson MD for Observation. jl7 Preliminary diagnosis is Unstable angina. Bed requested for Telemetry/MedSurg (observation). Status is Observation. Condition is Stable. Problem is new. Symptoms have improved. UTI on Admission? No. dw
--- NOTE | 2019-02-19 13:25 | ER ---
Nurse's Notes [facility] Name: Roman Gooden Age: 59 yrs Sex: Male : 1960 Arrival Date: 02/19/2019 Time: 10:46 Bed 13 Private MD: Diagnosis: Unstable angina Presentation: 02/19 10:47 Presenting complaint: EMS states: Hx of aortic aneurysm, c/o sudden left sided chest jl7 pain, radiates to left arm. Lower abdominal pain radiates straight through to lower back. Transition of care: patient was not received from another setting of care. Onset of symptoms was February 19, 2019. Risk Assessment: Do you want to hurt yourself or someone else? Patient reports no desire to harm self or others. Initial Sepsis Screen: Does the patient meet any 2 criteria? No. Patient's initial sepsis screen is negative. Does the patient have a suspected source of infection? No. Patient's initial sepsis screen is negative. Care prior to arrival: IV initiated. 18 GA, in the right antecubital area. 10:47 Method Of Arrival: EMS: [facility] jl7 10:47 Acuity: DAVID 2 jl7 Historical: - Allergies: 10:50 No Known Allergies; jl7 - Home Meds: 10:50 amitriptyline 10 mg Oral tab 1 tab once daily [Active]; amlodipine 10 mg tab 1 tab once jl7 daily [Active]; atorvastatin 40 mg Oral tab 1 tab once daily [Active]; carvedilol 6.25 mg Oral tab 1 tab 2 times per day [Active]; lisinopril 20 mg Oral tab 1 tab once daily [Active]; tamsulosin 0.4 mg Oral cp24 1 cap once daily [Active]; - PMHx: 10:50 enlarged prostate; Hypertension; Patient was recently told her has a "aortic anyeurysm jl7 but they don't know where exactly it is. "; TIA; UTI; - PSHx: 10:50 Tonsillectomy; jl7 - Immunization history:: Adult Immunizations unknown. - Social history:: Smoking status: Patient/guardian denies using tobacco. - Ebola Screening: : No symptoms or risks identified at this time. Screenin:10 Abuse screen: Denies threats or abuse. Nutritional screening: No deficits noted. tw2 Tuberculosis screening: No symptoms or risk factors identified. Fall Risk None identified. Assessment: 10:40 General: Appears in no apparent distress. uncomfortable, Behavior is cooperative, jl7 appropriate for age, anxious. Pain: Complains of pain in left breast Pain radiates to left arm Pain currently is 8 out of 10 on a pain scale. Quality of pain is described as squeezing, Pain began 1 hour ago. Is continuous. Neuro: Level of Consciousness is awake, alert, obeys commands, Oriented to person, place, time, situation. Cardiovascular: Heart tones S1 S2 present Patient's skin is warm and dry. Respiratory: Airway is patent Respiratory effort is even, unlabored, Respiratory pattern is regular, symmetrical, Breath sounds are clear bilaterally. GI: Abdomen is flat, non-distended, Bowel sounds present X 4 quads. Reports upper abdominal pain. : No signs and/or symptoms were reported regarding the genitourinary system. EENT: No signs and/or symptoms were reported regarding the EENT system. Derm: Skin is pink, warm \\T\\ dry. 11:40 Reassessment: Pt reports no change in chest pain, medicated as ordered. jl7 13:00 Reassessment: Pt reports increased chest pain, ERP notified, VO for repeat EKG at this jl7 time. 13:50 Reassessment: Patient appears in no apparent distress at this time. No changes from jl7 previously documented assessment. Patient and/or family updated on plan of care and expected duration. Pain level reassessed. Patient is alert, oriented x 3, equal unlabored respirations, skin warm/dry/pink. 14:49 Reassessment: attempted to call report, nurse unavailable. jl7 Vital Signs: 10:43 BP 142 / 102 RA; Pulse 81; Resp 19 S; Pulse Ox 97% on R/A; Pain 8/10; jl7 10:43 BP 137 / 96 LA; jl7 11:00 BP 133 / 107; Pulse 82; Resp 16 S; Pulse Ox 98% on R/A; jl7 11:25 BP 165 / 107; Pulse 75; Resp 16 S; Pulse Ox 95% on R/A; jl7 11:40 BP 144 / 97; Pulse 81; Resp 20 S; Pulse Ox 95% on R/A; Pain 8/10; jl7 13:42 Weight 90.72 kg (R); jl7 13:50 BP 156 / 98; Pulse 71; Resp 16 S; Pulse Ox 100% on R/A; jl7 14:50 BP 153 / 97; Pulse 74; Resp 16 S; Pulse Ox 100% on R/A; jl7 Vitals: 10:50 The patient's bilateral blood pressures are equal. jl7 ED Course: 10:40 Maintain EMS IV. Dressing intact. Good blood return noted. Site clean \\T\\ dry. Gauge \\T\\ jl 7 site: 18 right AC. 10:43 Arm band placed on right wrist. jl7 10:46 Patient arrived in ED. jl7 10:47 Bed in low position. Call light in reach. Side rails up X2. panel monitor on. Pulse tw2 ox on. NIBP on. 10:48 Triage completed. jl7 10:52 Jose Francois MD is Attending Physician. tw4 10:52 EKG done, by implementation technician. reviewed by Nabeel Nails MD. at1 11:10 Ryan Trammell RN is Primary Nurse. jl7 11:10 Patient maintains SpO2 saturation greater than 95% on room air. tw2 11:20 XRAY Chest (1 view) In Process Unspecified. EDMS 12:14 CT Abd/Pelvis - IV Contrast Only In Process Unspecified. EDMS 13:24 Anitra Stevenson MD is Hospitalizing Provider. tw4 13:28 EKG done, by implementation technician. reviewed by Jose Francois MD. sm3 14:50 No provider procedures requiring assistance completed. Patient admitted, IV remains in jl7 place. intact, No redness/swelling at site. Administered Medications: 11:27 Drug: Nitro-Bid Ointment 2 % 1 inches Route: Transdermal; Site: anterior chest wall; jl7 11:40 Drug: Zofran 4 mg Route: IVP; Site: right antecubital; jl7 12:00 Follow up: Response: No adverse reaction jl7 11:42 Drug: morphine 4 mg Route: IVP; Site: right antecubital; jl7 12:00 Follow up: Response: No adverse reaction; Pain is decreased jl7 13:49 Drug: Lovenox 1 mg/kg Route: Sub-Q; Site: right lower abdomen; jl7 15:11 Follow up: Response: No adverse reaction jl7 Outcome: 13:24 Decision to Hospitalize by Provider. tw4 15:09 Admitted to Tele accompanied by tech, via wheelchair, room 210, with chart, Report jl7 called to JAMES Bruner 15: Condition: stable 15:09 Discharge instructions given to patient, Instructed on the need for admit, Demonstrated understanding of instructions. 15:21 Patient left the ED. jl7 Signatures: Dispatcher [employer] EDMS Ani Cabello, unleavened dough mixer EKG Tat1 Mimi Hdez RN RN tw2 Ryan Trammell RN RN jl7 Jose Francois MD MD tw4 Madhavi Castillo 3 Corrections: (The following items were deleted from the chart) 13:15 13:00 Reassessment: Pt5 reports increased chest pain, ERP notified, VO for repeat EKG jl7 at this time. jl7
[2019-02-19] MEDS ORDERED: ENOXAPARIN 100 MG/ML SYR SQ ONE (13:44)
[2019-02-19] MEDS ORDERED: MORPHINE 2 MG/ML SYR IV PRN (15:19)
[2019-02-19] MEDS ORDERED: ALPRAZOLAM 0.25 MG TABLET PO PRN (15:19)
[2019-02-19] MEDS ORDERED: NITROGLYCERIN 0.4 MG/TAB SL PRN (15:19)
[2019-02-19 15:50] VITALS: BMI 28.7
--- NOTE | 2019-02-19 15:51 | EKG ---
Test Date: 2019-02-19 Test Time: 13:14:11 Tying Machine Operator: MIKY MEASUREMENT RESULTS: Intervals: Rate: 69 MI: 184 QRSD: 84 QT: 436 QTc: 467 [place]: P: 5 MI: 184 QRS: 35 T: 65 INTERPRETIVE STATEMENTS: Normal sinus rhythm Nonspecific T wave abnormality Prolonged QT Abnormal ECG Compared to ECG 02/19/2019 10:39:07 No significant changes Electronically Signed On 02-19-19 15:50:56 CDT by Musa Wiggins
[2019-02-19] MEDS: ENOXAPARIN 40 MG/0.4 ML SQ SCH (16:00)
[2019-02-19] MEDS: LISINOPRIL 20 MG TAB PO SCH (16:08)
[2019-02-19] MEDS: carvediloL 12.5 MG TAB PO SCH (17:28)
[2019-02-19] MEDS: ACETAMINOPHEN 500 MG TAB PO PRN (19:53)
[2019-02-19] MEDS ORDERED: POTASSIUM CL SA 10 MEQ TAB PO ONE (20:43)
[2019-02-19] MEDS ORDERED: AMITRIPTYLINE 10 MG TAB PO SCH (21:00)
[2019-02-19] MEDS ORDERED: ATORVASTATIN 40 MG TAB PO SCH (21:00)
--- NOTE | 2019-02-20 00:20 | CON ---
Date of Consultation: 02/19/[address] Stevenson's service on 02/19/2019. Patient was seen on 02/19/2019. Reason For Consultation: Unstable angina. History Of Present Illness: Mr. Gooden is a 59-year-old white male, has known documented coronary judy ry disease that is mild in January of 2018. In November of 2018 had atypical chest pain and had what s ounds like an apical ischemia on the stress test with an ejection fraction of 43%. He comes back wit h chest pain, substernal, radiating to the neck with diaphoresis and shortness of breath. Denied PND , orthopnea, pedal edema, palpitations, or syncope. His EKG was normal. Chest x-ray was normal. CT of the abdomen and pelvis was negative. His enzymes were negative. Patient continues to have chest pain with exertion. Past Medical History: Positive for history of thoracic aneurysm that measured 4.[address] ang iogram. He has a history of hypertension, dyslipidemia, TIA in 2005, and benign prostatic hypertroph y. Allergies: NONE. Review of Systems: Positive for lower abdominal pain. Social History: Negative. Family History: Negative. Medications: Include Norvasc, Elavil, Coreg, Lipitor, lisinopril, and Flomax. Physical Examination: Vital Signs: Stable. He was having some mild discomfort in the chest and neck and some diaphoresis. He was afebrile. HEENT: Negative. Neck: Supple without any lymphadenopathy, JVD, or thyromegaly. Chest: Clear. Cardiac: Revealed a regular rhythm and rate. No murmurs, gallops, or rubs. Abdomen: Benign. Extremities: Revealed no clubbing, cyanosis, or edema. Skin: Dry and intact. Pulses were present bilaterally. Neurologic: He was nonfocal. Diagnostic Data: Within normal limits, except for a potassium of 3.2. Impression And Plan: 1.This are a patient with documented mild coronary artery disease approximately 13 months ago. In 2018 had a positive stress test, but he was hesitant about having a heart catheterization then . Now has symptoms typical for coronary artery disease with chest pain, diaphoresis, shortness of br eath. He is ruled out for an OK, but I think we will need to do another heart catheterization to jeison ssess his coronaries. His potassium needs to be supplemented. His creatinine is normal. Patient ag carl to have the catheterization. He understands the risk and the benefits of the procedure and he a grees to proceed. 2.Thoracic aneurysm, 4.3, which is stable, that needs to be addressed every year or [address] of h is chest. 3.Hypertension, well controlled. 4.Dyslipidemia, well controlled. 5.History of transient ischemic attack in 2016 with negative carotid. 6.Benign prostatic hypertrophy. We will continue to follow Mr. Gooden after the catheterization. VIRGIL/RENEE Voice ID: [id number] Report ID: [id number]
--- NOTE | 2019-02-20 01:05 | HP ---
Date of Admission: 02/19/2019 Consultants: Dr. Wiggins with Cardiology. Code Status: Full. Chief Complaint: Chest pain and left lower quadrant abdominal pain. History Of Present Illness: Patient is a 59-year-old male with past medical history of mild coronary artery disease, hypertension, hyperlipidemia, and history of TIA, who has a recent diagnosis of dilated ascending aorta at 4.4 cm , comes in with chest pain, which was sudden onset on the left side, nonradiating, associated with diaphoresis, nausea, and lightheadedness. Pain started at rest. Patient also reports left lower quadrant abdominal pain and nausea, but no vomiting, diarrhea. Patient does report ill contact at home. Patient's symptoms are constant, moderate, progressively worsening, therefore came into the ER. His workup revealed negative troponin level, did have low potassium at 3.2. White blood cell count was normal. CT scan of the abdomen and pelvis showed some incidental findings of hepatic cysts and moderate prostatomegaly. Patient has had a CT aortic dissection done 1 month ago, which did not show any dissection or aneurysm, showed thoracic aortic diameter of 4.4 cm with recommended followup every 2 years. In the ER, he was awake, alert, and oriented x3. His pain improved with morphine. Patient was given full-dose Lovenox and Zofran. Past Medical History: Hypertension, history of TIA, thoracic aortic dilatation , urinary retention secondary to BPH, hyperlipidemia. Surgical History: Tonsillectomy, ankle surgery after trauma, eye surgery for what sounds like correction of strabismus when he was 8 years old. Allergies: NO KNOWN DRUG ALLERGIES. Medications: List reviewed. Family History: Mother had heart disease, had pacemaker put in. Father of liver disease and had cancer. Brother also developed cancer. Social History: Patient denies tobacco use. Never smoked in his life. Does report alcohol use very rarely, maybe once or twice a year during special occasions. Review of Systems: 10-point system reviewed, negative except as per HPI. Physical Examination: Vital Signs: Blood pressure 142/102, pulse 81, respirations 19, O2 97% on room air. General: Awake, alert, oriented x3, in some mild distress, ill-appearing male, appears older than stated age. HEENT: Normocephalic, atraumatic. PERRLA. EOMI. Dry mucous membranes. Oropharynx is clear. Conjunctivae are anicteric. Poor dentition. Neck: Supple. No JVD. Trachea midline. CV: S1, S2. Regular rate and rhythm. No murmurs. Respiratory: Clear to auscultation bilaterally. No wheezing or stridor. No use of accessory muscles. Gastrointestinal: Abdomen is soft. Patient has tenderness to palpation in the left lower quadrant. No rebound or guarding. Positive bowel sounds. Extremities: No clubbing, cyanosis, or edema. No calf tenderness. Neuro: Cranial nerves 2 through 12 intact grossly. No focal neurological deficits. Speech is normal. Skin: No rashes. Normal skin turgor. Psych: Mood is somewhat anxious. Affect is congruent with mood. Insight and judgment are fair. Laboratory Data: Sodium 143, potassium 3.2, chloride 113, CO2 of 24, BUN 12, creatinine 0.82, glucose 91, calcium 8.8, magnesium 2.3, total bilirubin 1.2, AST 13, ALT 18, alkaline phosphatase 79. Troponin less than 0.02. BNP 319. Albumin 3.5. INR 1.03. WBC 8.3, H and H are 13.9 and 40.3, platelets 208, neutrophils 70.5. Imaging Studies: CT scan of the abdomen and pelvis showed no acute intraabdominal or pelvic finding, significant prostatomegaly, small stable hepatic hypodensities, likely cysts. Chest x-ray, personally reviewed, shows lungs grossly clear. Mildly tortuous thoracic aorta noted. No displaced fractures. EKG shows normal sinus rhythm, nonspecific T-wave abnormality, rate of 82, prolonged QT. T-wave abnormality is new. Assessment: 59-year-old male with: 1. Unstable angina. Patient again complaining of chest pain. Has had a cardiac cath in 2018, I believe, showing mild stenosis in the distal RCA and has had recent echocardiogram and Lexiscan, which were normal in November 2018; however, patient keeps coming in with chest pain. May need repeat cardiac cath to further identify his anatomy. We will consult Cardiology. Obtain serial cardiac enzymes and EKG does show some nonspecific changes at this time. Patient's pain improved with morphine. Continue on chest pain guidelines. 2. Coronary artery disease, pamunkey artery and pamunkey heart with angina. Continue aspirin. 3. Left lower quadrant abdominal pain, unclear etiology. CT scan of the abdomen and pelvis does not show any acute changes. Patient does have some diverticulosis and hepatic cysts and prostatomegaly. 4. Dilated ascending aorta at 4.[address] angio for dissection was negative on 01/20/2019. Cardiology recommended followup every 2 years. 5. Hypokalemia. We will replace and monitor. 6. Essential hypertension, uncontrolled. We will resume home medications and add p.r.n.'s for systolic greater than 160. 7. Dyslipidemia. Continue statin. 8. Benign prostatic hypertrophy. We will check PSA level. 9. History of transient ischemic attack in 2016. Continue aspirin and statin. Plan: Admit patient to Med-Surg, [facility] as observation. NADEEM Voice ID: [id number]
[2019-02-20] MEDS: carvediloL 12.5 MG TAB PO SCH ×2 (05:27→18:00)
[2019-02-20 06:06] LABS: Absolute Lymphocytes (CBC) 1.9 K/uL (0.7-4.9); Basophils % 0.9 % (0-1.3); Hematocrit 41.7 % (39.6-49.0); Lymphocytes % 35.8 % (15.3-44.8); MPV 9.4 fL (7.6-11.3); RBC Red Blood Cell Count 4.74 M/uL (4.33-5.43)
[2019-02-20 06:20] LABS: Potassium 4.2 mmol/L (3.5-5.1)
[2019-02-20] MEDS ORDERED: TAMSULOSIN 0.4 MG SR CAP PO SCH (09:00)
[2019-02-20] MEDS ORDERED: AMLODIPINE 10 MG TAB PO SCH (09:00)
[2019-02-20] MEDS ORDERED: ASPIRIN EC 81 MG TAB PO SCH (09:00)
[2019-02-20] MEDS: ENOXAPARIN 40 MG/0.4 ML SQ SCH (09:00)
[2019-02-20] MEDS: LISINOPRIL 20 MG TAB PO SCH (09:32)
[2019-02-20] MEDS ORDERED: HEPA 1000U/500MLS 2,000 UNIT/1,000 ML BAG IV ONE (12:15)
[2019-02-20] MEDS ORDERED: LIDOCAINE 1% MPF 30 ML VIAL ONE (12:18)
[2019-02-20] MEDS ORDERED: NITROGLYCERIN 100 MCG/ML SYR (for cath lab use only) IV ONE (12:18)
[2019-02-20] MEDS ORDERED: ATROPINE SULF 1 MG/10 ML SYR IV ONE ×2 (12:18→13:00)
[2019-02-20] MEDS ORDERED: FENTANYL CITR 100 MCG/2 ML ONE (12:18)
[2019-02-20] MEDS ORDERED: NICARDIPINE HCL 25 MG/10 ML IV ONE (12:18)
[2019-02-20] MEDS ORDERED: HEPARIN 5000 UNIT/ML 1 ML VIAL ONE (12:18)
[2019-02-20] MEDS ORDERED: MIDAZOLAM HCL 2 MG/2 ML INJ ONE (12:18)
[2019-02-20] MEDS ORDERED: NA CHLORIDE 0.9% 0 ML ONE (12:19)
[2019-02-20] MEDS ORDERED: NA CHLORIDE 0.9% 500 ML ONE (12:43)
[2019-02-20] MEDS: ACETAMINOPHEN 500 MG TAB PO PRN (16:14)
[2019-02-20 18:01] VITALS: BP 122/57; TEMP 97.8
[2019-02-20 18:14] VITALS: O2SAT 98
--- NOTE | 2019-02-21 00:38 | OP ---
Surgeon: Morgan Galeano MD Patient Identification: 59-year-old man. Procedure: Left heart catheterization, coronary left ventricular angiography. Findings: Patient has mild coronary lumen irregularities, no stenosis. His ejection fraction is 65% . His left ventricular end-diastolic pressure is 9 and it is a normal cardiac cath except for mild l umen irregularities. His aortic root is known to be dilated, but no aortic root angiogram was done d uring this procedure. Procedure In Detail: The patient was brought to the [facility] in a fasting state, sedated wit h Versed and fentanyl, prepared and draped in usual sterile fashion. Right radial approach was used. Skin over the right radial artery was anesthetized with 1% lidocaine. The artery was then entered using a 21-gauge needle, cannulated with a 0.021-inch diameter guidewire, and a 6-Nepali Terumo sheat h was placed. Once in place, the sheath was flushed, and the radial cocktail was given consisting of nicardipine, heparin, nitroglycerin. We guided a Dave catheter into the ascending aorta and were a ble to angiogram right and left coronaries, left ventricle, all with the same catheter. At the end o f the procedure, the catheter was withdrawn over a J-wire to straighten out its bends and minimize tr auma to the radial artery. Once the catheter was removed, the sheath was removed and flushed and rem ezequiel and then the arteriotomy closed with a TR band. Estimated Blood Loss: 5 cc. Material Handling Technician: Eleanor Hall Complications: None. Final Diagnosis: False-positive NPI. BERTO/RENEE Voice ID: [id number] Report ID: [id number]
--- NOTE | 2019-02-21 04:10 | DS ---
Date of Discharge: 02/20/2019 Consultants: Dr. Wiggins and Dr. Galeano with Cardiology. Procedures: Cardiac catheterization on 02/20/2019, no stents. Discharge Diagnoses: 1.Unstable angina, acute coronary syndrome ruled out. 2.Coronary artery disease, lime artery and lime heart with angina. 3.Left lower quadrant abdominal pain, resolved. 4.Dilated ascending aorta, 4.4 cm. Follow up with CT scan in 2 years. 5.Essential hypertension, not well controlled. 6.Dyslipidemia, statin. 7.Benign prostatic hypertrophy, elevated PSA level. 8.History of transient ischemic attack. 9.Hypokalemia, replaced. Hospital Course: Patient is a 59-year-old male, came in with chest pain and left lower quadrant abdo terry pain. Patient has had recent cardiac workup, however, continues to have chest pain, therefore he was readmitted to the hospital and ACS was ruled out. Patient was seen by Cardiology who recommen ded repeat cardiac catheterization to reassess his coronaries. He did have some luminal irregulariti es, however, there were no stent requiring lesions. Patient overall did well. During the course of the hospital stay he did have some mild hypokalemia which was corrected. Patient does have moderate prostatomegaly. His PSA level was 8.9, which is high towards the borderline of being above 10 and wi ll need to see his primary care physician to have his prostate examined and further evaluation of his prostatomegaly. He is on tamsulosin. Does not complain of any urinary issues at this time. Patient was then cleared for discharge. Condition: Stable. Diet: Heart healthy. Activity: As tolerated. Followup: Patient to follow up with PCP in 2-3 days. Follow up with staffing branch manager, Dr. Wiggins in 2 weeks. Return to ER for worsening condition. Medications: As per medication reconciliation list. Physical Examination: General: Awake, alert, oriented x3. No acute distress. CV: S1-S2. No murmurs. Respiratory: Moving air well bilaterally. No wheezing. Gastrointestinal: Abdomen is soft, nontender, nondistended. Positive bowel sounds. Extremities: No clubbing, cyanosis, edema. Neurologic: Nonfocal. SA/MODL Voice ID: [id number] Report ID: [id number]
== END 2019-02-20 19:21 | disposition home or self-care (01) ==
LOC: ER 10:38 → ERHOLD 13:52 → 2ND 15:12
PROVIDERS: ADMIT Family Medicine; ATTEND Family Medicine
PROC: 4A023N7 Measurement of Cardiac Sampling and Pressure, Left Heart, Percutaneous Approach (ICD-10-PCS; principal; 2019-02-20)
PROC: B201YZZ Plain Radiography of Multiple Coronary Arteries using Other Contrast (ICD-10-PCS; 2019-02-20)
PROC: B205YZZ Plain Radiography of Left Heart using Other Contrast (ICD-10-PCS; 2019-02-20)
DX: I25.110 Atherosclerotic heart disease of native coronary artery with unstable angina pectoris (principal); R10.32 Left lower quadrant pain; I77.819 Aortic ectasia, unspecified site; I10 Essential (primary) hypertension; E78.5 Hyperlipidemia, unspecified; N40.0 Benign prostatic hyperplasia without lower urinary tract symptoms; Z86.73 Personal history of transient ischemic attack (TIA), and cerebral infarction without residual deficits; E87.6 Hypokalemia
CPT/HCPCS: 93005 ×2; 85025 ×2; 80048 ×2; 36415; 83735; 85610; 80061; 80076; 84484 ×3; 83880; 74177; 71045; 93458; 94760 ×3; 96375; 96372; 96374; 99285; G0103; Q9967; C1893; J1644; J1650 ×2; J2250; J3010; J2270; G0378 ×4; J7040; J2405; J0583